=== PATIENT | female | born 1990 | race Caucasian/White ===

== ENCOUNTER 2019-06-23 14:30 | Outpatient (RCR) | payer BC, SELFPAY ==
[2019-06-23] MEDS: RHO(D) IMMUNE GLOBULIN 300 MCG SYRINGE IM (15:18)
== END 2019-09-19 23:59 | disposition home or self-care (01) ==
LOC: ANHLAB 14:30
PROVIDERS: Visit Provider Obstetrics & Gynecology
DX: O20.0 Threatened abortion (principal); Z29.13 Encounter for prophylactic Rho(D) immune globulin; O36.0990 Maternal care for other rhesus isoimmunization, unspecified trimester, not applicable or unspecified; Z3A.00 Weeks of gestation of pregnancy not specified
CPT/HCPCS: 36415; 84702; 86900; 86901; 90384; 96372; J2790

== ENCOUNTER 2020-02-02 08:41 | Emergency (ER) | payer BC, SELFPAY ==
--- NOTE | ~2020-02-02 | XR_ITS ---
XR chest 1V portable DATE: 02/02/2020 09:53 INDICATION: Chest pain, shortness of breath TECHNIQUE: Portable AP chest on 02/02/2020 at 0954 hours COMPARISON: None FINDINGS: Normal heart size. No hilar or mediastinal enlargement. No pulmonary infiltrate or consolid ation, pleural effusion or pulmonary vascular congestion or pneumothorax. IMPRESSION: No active cardiopulmonary disease Reviewed, dictated and finalized at location A.
--- NOTE | 2020-02-02 08:54 | ECG_ITS ---
Measurements Intervals [place] Rate: 113 P: 41 OK: 130 QRS: 16 QRSD: 93 T: 5 QT: 317 QTc: 436 Interpretive Statements SINUS TACHYCARDIA BORDERLINE T WAVE ABNORMALITY- INFERIOR LEADS BASELINE ARTIFACT- I, II, III, AVR, AVF ABNORMAL ECG Electronically Signed On 02-02-2020 9:44:49 CDT by Yeison Alfonso D.O.
--- NOTE | 2020-02-02 08:55 | ED.GENADULT ---
HPI - General Adult General Chief complaint: Chest Pain Stated complaint: SOB/CP - 16 weeks preg Time Seen by Provider: 02/02/20 08:49 Source: patient History of Present Illness HPI narrative: Patient is a 29 y/o female complaining of mid sternal chest pain since last night. She describes her pain as being punched. She rates her pain as 8/10. There is no alleviating or exacerbating factor. She also has some shortness. She has chronic cough, which she attributed to allergies. Of note, she is approximately 16 week . Related Data Home Medications Medication Instructions Recorded Confirmed docosahexaenoic acid 200 mg capsule mg PO 11/23/19 Allergies Allergy/AdvReac Type Severity Reaction Status Date / Time No Known Allergies Allergy Verified 02/02/20 09:08 Review of Systems Constitutional: Constitutional: Denies chills, Denies fever(s), Denies headache(s) and Denies weakness Eyes: Eyes: Denies blurry vision ENT: Denies headache(s) and Denies neck pain Cardiovascular: Cardiovascular: Reports chest pain and Reports dyspnea Respiratory: Respiratory: Denies cough and Denies dyspnea Gastrointestinal: Gastrointestinal: Denies abdominal pain, Denies diarrhea, Denies nausea and Denies vomiting Genitourinary: Genitourinary: Denies hematuria and Denies dysuria Musculoskeletal: Musculoskeletal: Denies back pain and Denies neck pain Neurologic: Denies headache(s) and Denies weakness PMFSH Past Medical History Medical History (Updated 02/02/20 @ 13:47 by Victorina Warner MD) Acid reflux Anemia affecting delivery delivered X2 04/2009 full term male 7lbs 13oz 05/2017 full term male 8lbs 2oz Migraines Miscarriage X2 09/2018 Tonsillectomy planned Surgical History Surgical History H/O dilation and curettage X2 Family History Family History Other Breast cancer Mother Cervical cancer Social History Social History Smoking status: Never smoker Alcohol intake: current Drinks per week: 1 Substance use: current Substance use type: marijuana Other substance usage details: 3 times weekly Exam Const: General: no acute distress and well developed Orientation/consciousness: oriented to person, oriented to place, oriented to time and patient oriented x3 HENMT: Head: normocephalic Ears: external ears normal General nose exam: Normal external nose present Eyes: General: appearance normal, both eyes and all related structures Conjunctivae: conjunctivae normal Neck: Neck: normal visual inspection and full ROM Chest: Chest palpation & inspection: normal inspection of the chest and no tenderness Resp: Effort & Inspection: normal respiratory effort Auscultation: clear to auscultation bilaterally Cardio: Rate: tachycardic Rhythm: regular rhythm GI: GI Palp: No abdominal tenderness and Yes Soft to palpation Skin: General skin exam: normal color and turgor normal Neuro: General: oriented to person, oriented to place, oriented to time and patient oriented x3 Cognition (Neuro): normal cognition Extrem: General: normal to inspection, full ROM and no pedal edema Psych: Appearance: grossly normal Mental Status: mental status grossly normal Affect: normal affect Course Consultations Consultation #1: Discussed with Dr. Lopez (for Dr. Stoddard), who recommends COVID test, holding antihypertensives for now and have patient follow up with Dr. Stoddard tomorrow. Date: 02/02/20 Time: 13:45 Vital Signs Vital signs: Vital Signs Temperature 36.3 C L 02/02/20 09:02 Pulse Rate 126 H 02/02/20 09:02 Respiratory Rate 22 H 02/02/20 09:02 Blood Pressure 172/90 H 02/02/20 09:02 Pulse Oximetry 100 02/02/20 09:02 Temperature 36.3 C L 02/02/20 09:02 Pulse Rate 95 02/02/20 12:25 Respiratory Rate 18
[2020-02-02 09:02] VITALS: BP 172/90; PULSE 126; RESP 22; TEMP 36.3; O2SAT 100
[2020-02-02 09:06] LABS: Basophils Absolute Auto 0.1 K/mm3 (0.0-0.1); Basophils Percent Auto 0.5 % (0.2-1.2); Eosinophils Absolute Auto 0.2 K/mm3 (0-0.3); Eosinophils Percent Auto 1.3 % (0-4.4); Hemoglobin 12.1 g/dL (12.0-15.0); Immature Granulocyte Absolute 0.05 K/mm3 (0.00-0.031); Immature Granulocyte Percent A 0.4 % (0-0.5); Lymphocytes Absolute Auto 2.15 K/mm3 (0.9-3.2); Lymphocytes Percent Auto 16.7 % (18.3-44.2); Mean Corpuscular Hemoglobin 23.8 pg (26-34); Mean Corpuscular Volume 76.8 fl (80-100); Mean Platelet Volume 10.5 fl (7.4-10.4); Monocytes Absolute Auto 0.7 K/mm3 (0.1-0.6); Monocytes Percent Auto 5.6 % (2.6-8.5); Neutrophils Absolute Auto 9.8 K/mm3 (1.3-6.7); Neutrophils Percent Auto 75.5 % (45.5-73.1); Platelet Count Result 406 k/mm3 (150-375); Red Blood Count 5.08 M/mm3 (4.2-5.4); Red Cell Distribution Width 16.6 % (11.5-14.5); White Blood Count 12.9 K/mm3 (4.5-10.0)
[2020-02-02 09:18] LABS: Alanine Aminotransferase 18 U/L (4-35); Albumin Level 3.7 g/dL (3.5-5.1); Alkaline Phosphatase 102 U/L (38-126); Anion Gap 9 mmol/L (8-16); Aspartate Amino Transferase 25 U/L (14-36); Bilirubin,Total 0.4 mg/dL (0.2-1.3); Blood Urea Nitrogen 6 mg/dL (7-17); Calcium 9.3 mg/dL (8.4-10.2); Carbon Dioxide 24 mmol/L (22-30); Chloride 103 mmol/L (98-107); Estimated CRCL calculation 265 ml/min; Estimated Glomerular Filt Rate > 60; Glucose 107 mg/dL (65-105); Potassium 4.1 mmol/L (3.4-5.0); Sodium 136 mmol/L (137-145)
[2020-02-02 09:19] LABS: D Dimer 0.37 ug/mL (<0.48)
[2020-02-02 09:29] LABS: NT Pro B Type Natriuretic Pept 75 PG/ML (5-100); Troponin I < 0.012 ng/mL (0.000-0.034)
[2020-02-02 10:07] VITALS: BP 152/89; PULSE 91; RESP 18; O2SAT 100
[2020-02-02 12:25] VITALS: BP 149/85; PULSE 95; RESP 18; O2SAT 100
--- NOTE | 2020-02-02 12:37 | PC.NURSE ---
Unsuccessful attempts to draw pts 3 hour. Lab was called. Lab is currently in pts room.
[2020-02-02 12:44] LABS: Add Urine Microscopic? YES; Appearance Urine Cloudy (Clear); Bacteria Urine Trace /hpf; Bilirubin Urine Negative (Negative); Blood Urine 1+ (Negative); Color Urine Yellow (Yellow); Glucose Urine UA Negative (Negative); Ketones Urine 1+ mg/dL (Negative); Leukocyte Esterase Ur Negative LEU/UL (Negative); Mucus Urine Heavy /lpf; Nitrate Urine Negative (Negative); Protein Urine 1+ mg/dL (Negative); Specific Grav Ur 1.027 (1.001-1.035); Squamous Epithelial Cell Urine Many /hpf (Few); Transitional Epi Cells Urine Rare /hpf (None Seen); Urobilinogen Urine Negative mg/dL (<2.0); WBC Urine 0-3 /hpf
[2020-02-02 13:09] LABS: Troponin I < 0.012 ng/mL (0.000-0.034)
[2020-02-03 12:45] LABS: SARS-CoV-2 RNA PCR Negative
== END 2020-02-02 14:11 | disposition home or self-care (01) ==
PROVIDERS: Emergency Provider Emergency Medicine
DX: K21.9 Gastro-esophageal reflux disease without esophagitis (principal); Z20.828 Contact with and (suspected) exposure to other viral communicable diseases; R00.0 Tachycardia, unspecified; R94.31 Abnormal electrocardiogram [ECG] [EKG]
CPT/HCPCS: 36415; 71045; 80053; 81001; 83880; 84443; 84484; 85025; 85380; 87635; 93005; 99284; C9803; U0003

== ENCOUNTER 2020-02-20 11:25 | Outpatient (CLI) | payer BC, SELFPAY ==
[2020-02-20] VITALS (11 sets, daily range): BP systolic 130–151; BP diastolic 64–82; PULSE 90–108; TEMP 36.4; O2SAT 99
--- NOTE | ~2020-02-20 | US_ITS ---
EXAMINATION: US OB limited EXAM DATE: 02/20/2020 13:19 INDICATION: Check placenta- post fall. 2nd trimester. TECHNIQUE: Pelvic obstetrical transabdominal sonogram was performed by a technologist. There are mu ltiple grayscale and Doppler images available for interpretation. There are no earlier studies of th is gestation for comparison. FINDINGS: There is a single fetus identified in transverse presentation with a heart rate of 142 beat s per minute. The placenta is located in the posterior previa position, appears to be extending about 1.3 cm over the internal cervical os. There is no sonographic evidence of retroplacental hemorrhage identified. There is subjectively expected amount of amniotic fluid. IMPRESSION: 1. Single fetus in transverse presentation with heart rate 142 beats per minute. 2. Placenta previa without retroplacental hemorrhage. Recommend follow-up ultrasound. Reviewed, dictated and finalized at location A. L NURSE CONSULTANT IMPRESSION: 1. Single fetus in transverse presentation with heart rate 142 beats per minut e. 2. Placenta previa without retroplacental hemorrhage. Recommend follow-up ultr asound.
--- NOTE | 2020-02-20 11:50 | PC.NURSE ---
This patient, Roxy Shanks, admitted to the OB room 112 at 1125 as clinical outpatient for hypertension in . Dr. Stoddard had called over orders before pt's arrival. Patient/family oriented to hospital policies and general routines including ID bracelet, bed and alarms, visiting hours, pain management, procedures, bathroom and other care routines, personal items, smoking policy, room service/diet, and visiting hours. Patient/Family are encouraged to report perceived risks to care and to ask questions if they do not understand what they are told or what they should do.
[2020-02-20 12:36] LABS: Basophils Absolute Auto 0.1 K/mm3 (0.0-0.1); Basophils Percent Auto 0.4 % (0.2-1.2); Eosinophils Absolute Auto 0.2 K/mm3 (0-0.3); Eosinophils Percent Auto 1.2 % (0-4.4); Hematocrit 35.6 % (37.0-47.0); Hemoglobin 10.9 g/dL (12.0-15.0); Immature Granulocyte Absolute 0.05 K/mm3 (0.00-0.031); Immature Granulocyte Percent A 0.4 % (0-0.5); Lymphocytes Absolute Auto 2.15 K/mm3 (0.9-3.2); Lymphocytes Percent Auto 16.4 % (18.3-44.2); Mean Corpuscular HGB Conc 30.6 g/dl (32-36); Mean Corpuscular Hemoglobin 23.6 pg (26-34); Mean Corpuscular Volume 77.1 fl (80-100); Mean Platelet Volume 10.4 fl (7.4-10.4); Monocytes Absolute Auto 0.7 K/mm3 (0.1-0.6); Monocytes Percent Auto 5.1 % (2.6-8.5); Neutrophils Percent Auto 76.5 % (45.5-73.1); Platelet Count Result 366 k/mm3 (150-375); Red Blood Count 4.62 M/mm3 (4.2-5.4); Red Cell Distribution Width 16.8 % (11.5-14.5); White Blood Count 13.1 K/mm3 (4.5-10.0)
[2020-02-20 12:42] LABS: Creatinine Urine 232.9 mg/dL; Total Protein Urine Random 6 mg/dL
[2020-02-20 12:47] LABS: Alanine Aminotransferase 13 U/L (4-35); Albumin Level 3.5 g/dL (3.5-5.1); Alkaline Phosphatase 114 U/L (38-126); Anion Gap 7 mmol/L (8-16); Aspartate Amino Transferase 15 U/L (14-36); Bilirubin,Total 0.3 mg/dL (0.2-1.3); Blood Urea Nitrogen 5 mg/dL (7-17); Calcium 9.1 mg/dL (8.4-10.2); Carbon Dioxide 24 mmol/L (22-30); Chloride 103 mmol/L (98-107); Estimated Glomerular Filt Rate > 60; Glucose 88 mg/dL (65-105); Sodium 134 mmol/L (137-145); Uric Acid 4.3 mg/dL (2.5-7.5)
[2020-02-20 12:48] LABS: Add Urine Microscopic? YES; Amorphous Sediment Urine Few; Appearance Urine Cloudy (Clear); Bacteria Urine 2+ /hpf; Bilirubin Urine Negative (Negative); Blood Urine Negative (Negative); Color Urine Yellow (Yellow); Glucose Urine UA Negative (Negative); Ketones Urine Trace mg/dL (Negative); Leukocyte Esterase Ur Negative LEU/UL (Negative); Mucus Urine Moderate /lpf; Nitrate Urine Negative (Negative); Protein Urine 1+ mg/dL (Negative); RBC Urine 0-2 /hpf (0-2); Specific Grav Ur 1.021 (1.001-1.035); Squamous Epithelial Cell Urine Many /hpf (Few); Urobilinogen Urine Negative mg/dL (<2.0)
--- NOTE | 2020-02-20 12:48 | PC.NURSE ---
Dr. Stoddard in OR and circulating RN passed on the information of pt's BP's. Informed pt fell going up her steps yesterday and hit her abdomen. Blood type is A Neg. Pt denies leakage of fluid and vaginal bleeding. FHT's 150. Additional orders for Rhogam and U/S to check placenta obtained.
--- NOTE | 2020-02-20 13:08 | PC.NURSE ---
To U/S per wheelchair.
--- NOTE | 2020-02-20 13:53 | PC.NURSE ---
Dr. Stoddard informed of lab results, updated on BP's, and informed of U/S report including placenta previa. Informed pt's headache has increased to a 7 out of 10. Pt last took Tylenol 650 mg at 2300 last night. Orders received for Tylenol. Pt can be discharge after she receives the Rhogam. Pt to be placed on pelvic rest and to keep office and U/S appointment on 03/05/20.
[2020-02-20] MEDS: ACETAMINOPHEN 500 MG TABLET 1000 MG PO (14:07)
[2020-02-20] MEDS: RHO(D) IMMUNE GLOBULIN 300 MCG SYRINGE IM (14:45)
== END 2020-02-20 14:58 | disposition home or self-care (01) ==
LOC: ANHOBOP 11:34 → ANHOBPP 11:37
PROVIDERS: Visit Provider Obstetrics & Gynecology
DX: O13.9 Gestational [pregnancy-induced] hypertension without significant proteinuria, unspecified trimester (principal); Z3A.00 Weeks of gestation of pregnancy not specified
CPT/HCPCS: 36415; 76815; 80053; 81001; 82570; 84156; 84550; 85025; 85461; 90384; 96372; 99199; A9270; J2790

== ENCOUNTER 2020-03-05 08:47 | Outpatient (CLI) | payer BC, SELFPAY ==
--- NOTE | ~2020-03-05 | US_ITS ---
EXAMINATION: US OB /maternal detail DATE: 03/05/2020 09:37 INDICATION: survey TECHNIQUE: Multiple obstetric sonographic images performed. FINDINGS: Comparison to 02/20/2020. There is a single living fetus in vertex presentation. The placenta is anterior without placenta pre via. Amniotic fluid volume is normal. YSABEL measures 11.2 cm. cardiac activity and movement is noted with a heart rate of 150 beats per minute. The following anatomy was identified as normal: 4 chamber heart (ventricular outflow tracts not visualized due to body habitus) 3 vessel cord cord insertion kidneys urinary bladder stomach spine diaphragm ventricles The cerebellum, cisterna magna and nuchal fold are not well visualized. The following biometric data were obtained: BPD: 48mm corresponds to gestational age 20 weeks 3 days. Head circumference: 180 mm corresponds to gestational age 20 weeks 3 days. Abdominal circumference: 170 mm corresponds to gestational age 22 weeks 0 days. Femur length: 32 mm corresponds to gestational age 20 weeks 0 days. Head circumference to abdominal circumference ratio: 1.06 (normal range for expected gestational age is 1.06-1.25). Estimated weight: 392 grams +/- 59 grams using Hadlock method. IMPRESSION: 1: Single living intrauterine with an estimated gestational age of 20weeks 5days by current ultrasound measurements, with an EDC of 07/18/2020 in vertex presentation. 2. Limited survey for evaluation of intracranial structures, nuchal fold and outflow tracts. No abnormalities identified. Recommend attention to areas of limited visualization on subsequent examination. Reviewed, dictated and finalized at location B. STOCK FARM MANAGER IMPRESSION: 1: Single living intrauterine with an estimated gestational age of 20 weeks 5days by current ultrasound measurements, with an EDC of 07/18/2020 in cal mary presentation. 2. Limited survey for evaluation of intracranial structures, nuchal fold and outflow tracts. No abnormalities identified. Recommend attention to a reas of limited visualization on subsequent examination.
== END 2020-03-05 08:48 | disposition home or self-care (01) ==
LOC: ANHIMG 08:49
PROVIDERS: Visit Provider Obstetrics & Gynecology
DX: Z34.92 Encounter for supervision of normal pregnancy, unspecified, second trimester (principal); Z3A.20 20 weeks gestation of pregnancy
CPT/HCPCS: 76805

== ENCOUNTER 2020-03-15 11:20 | Outpatient (NON) | payer BC, SELFPAY ==
[2020-03-16 00:26] LABS: SARS-CoV-2 RNA PCR Positive
== END 2020-03-15 11:21 ==
LOC: ANHCOVIDDT 11:23
PROVIDERS: Visit Provider Obstetrics & Gynecology
DX: U07.1 COVID-19 (principal)
CPT/HCPCS: 87635; C9803; U0003

== ENCOUNTER 2020-04-02 09:51 | Outpatient (CLI) | payer BC, SELFPAY ==
--- NOTE | ~2020-04-02 | US_ITS ---
EXAMINATION: US OB follow up DATE: 04/02/2020 10:30 INDICATION: Incomplete second trimester anatomic survey TECHNIQUE: Real-time ultrasound of the pelvis was performed. The interpreting radiologist was not pre sent for the study. COMPARISON: 03/05/2020 FINDINGS: There is a single living fetus in breech presentation. The placenta is fundal/anterior. Fet al cardiac activity and movement are noted. heart rate is 159 beats per minute (bpm). The amniotic fluid index is subjectively normal. The cerebral ventricles, cerebellum, cisterna magna, nu chal fold, and four-chamber heart appear normal however evaluation is again limited by body habitus. The following biometric data were obtained: Biparietal diameter (BPD): 6.5 cm; head circumference (HC): 24.3 cm; abdominal circumference (AC): 21 .8 cm; femur length (FL): 4.3 cm. The femoral length to abdominal circumference ratio, femoral length to biparietal diameter ratio, and femoral length to head circumference ratio are greater than two standard deviations below the mean. Estimated weight is 824 g +/- 123 g, which correlates with the 95th percentile when 07/22/2020 i s used as estimated date of delivery. As single measurements, these parameters are each equal to the following estimated gestational ages w ith ranges of +/- 2 standard deviations: BPD: 26 weeks 2 days ( 24 weeks 1 days - 28 weeks 3 days). HC: 26 weeks 3 days ( 24 weeks 32 days - 28 weeks 4 days). AC: 26 weeks 2 days ( 24 weeks 1 days - 28 weeks 3 days). FL: 4 weeks 1 days ( 2 weeks 1 days - 6 weeks 2 days). estimated gestational age based solely on measurements from this exam is 25 weeks 6 days +/- 1 weeks 6 days. IMPRESSION: 1. Single living fetus in breech presentation. 2. Estimated weight is 824 g +/- 123 g, which correlates with the 95th percentile when is used as estimated date of delivery. Three. Discordant biometrics as described above. 4. Grossly normal intracranial and heart anatomy with suboptimal evaluation. Reviewed, dictated and finalized at location A. R ORAL SURGEON IMPRESSION: 1. Single living fetus in breech presentation. 2. Estimated weight is 824 g +/- 123 g, which correlates with the 95th pe rcentile when 07/22/2020 is used as estimated date of delivery. Three. Discordan t biometrics as described above. 4. Grossly normal intracranial and heart anatomy with suboptimal evaluation.
== END 2020-04-02 09:52 | disposition home or self-care (01) ==
PROVIDERS: Visit Provider Obstetrics & Gynecology
DX: Z34.92 Encounter for supervision of normal pregnancy, unspecified, second trimester (principal); Z3A.25 25 weeks gestation of pregnancy
CPT/HCPCS: 76816

== ENCOUNTER 2020-04-28 13:11 | Emergency (ER) | payer BC, MEDICAID, SELFPAY ==
--- NOTE | ~2020-04-28 | XR_ITS ---
EXAMINATION: XR chest 1V portable EXAM DATE: 04/28/2020 14:11 INDICATION: Cough, shortness of breath, recent COVID diagnosis. . TECHNIQUE: Portable AP frontal chest x-ray was obtained. Comparison is made to prior examination from 02/02/2020. FINDINGS: The lungs are clear. There are no pleural effusions. Cardiac silhouette is prominent but magnified on this AP technique. There is no pneumothorax suspected. The bones and soft tissues are unremarkable. IMPRESSION: Normal chest x-ray exam. Reviewed, dictated and finalized at location A. SHOOTER IMPRESSION: Normal chest x-ray exam.
[2020-04-28 13:19] VITALS: BP 148/103; PULSE 116; RESP 20; TEMP 36.6; O2SAT 100
--- NOTE | 2020-04-28 14:00 | ED.URI ---
HPI - URI/Sore Throat General Chief Complaint: Upper Respiratory Infection Stated Complaint: cough, 28 weeks preg Time Seen by Provider: 04/28/20 13:51 Source: patient Mode of arrival: ambulatory Limitations: no limitations History of Present Illness HPI Narrative: Patient is 29 years old white female complaining of dry cough for the last 2 weeks. Was tested positive for Covid on March 13. Patient is 28 weeks denying any abdominal pain, abdominal cramps, vaginal bleeding or urinary symptoms. Patient also denies any fever, chills, nausea, vomiting, chest pain, shortness of breath or back pain. Related Data Home Medications Medication Instructions Recorded Confirmed PNV no.[id number] 2 tablet PO DAILY 02/20/20 02/20/20 [ Gummies] acetaminophen 650 mg PO Q4H PRN 02/20/20 02/20/20 Allergies Allergy/AdvReac Type Severity Reaction Status Date / Time No Known Allergies Allergy Verified 04/02/20 09:20 Review of Systems Review of Systems: Narrative: CONSTITUTIONAL: Denies fever, chills, or sweats. EYES: Denies visual changes, redness, or discharge. ENT: Denies rhinorrhea, congestion, sore throat, or otalgia. CARDIOVASCULAR: Denies chest pain, palpitations, or edema. RESPIRATORY: Denies cough or dyspnea. GASTROINTESTINAL: Denies abdominal pain, nausea, vomiting, or diarrhea. GENITOURINARY: Denies dysuria or hematuria. SKIN: Denies rash or itching. MUSCULOSKELETAL: Denies back pain, joint pain, or myalgia. NEUROLOGIC: Denies headache, numbness, or weakness. PSYCHIATRIC: Denies anxiety or depression. PENDING SALE TO [facility] Past Medical History Medical History (Updated 04/28/20 @ 14:16 by Robert Azar MD) Acid reflux Anemia affecting delivery delivered X2 04/2009 full term male 7lbs 13oz 05/2017 full term male 8lbs 2oz Migraines Miscarriage X2 09/2018 Tonsillectomy planned Surgical History Surgical History H/O dilation and curettage X2 Family History Family History Other Breast cancer Mother Cervical cancer Social History Social History Smoking status: Never smoker Alcohol intake: current Drinks per week: 1 Substance use: current Substance use type: marijuana Other substance usage details: 3 times weekly Gender identity (if verbalized by the patient): Female Exam Narrative: Exam Narrative: General appearance: Well-developed, well-nourished, morbidly obese, does not look in pain or distress, at the bedside Skin: Normal color Head: Normocephalic, nontraumatic Eyes: Clear conjunctiva ENT: Oropharynx normal, ears normal, nose normal Neck: Supple, nontender Chest and respiratory: Airway patent, no respiratory distress, no accessory muscle use Heart: Regular rate/rhythm Abdomen: Soft, nontender, no organomegaly, quiet bowel sounds Vascular: Normal peripheral pulses, normal capillary refill. Musculoskeletal: Normal range of motion, nontender back Neurologic: Alert and oriented ?3, SENIOR OPERATOR is normal as tested, no gross motor deficit Course Course Emergency Course: , stable Vital Signs Vital signs: Vital Signs Temperature 36.6 C 04/28/20 13:19 Pulse Rate 116 H 04/28/20 13:19 Respiratory Rate 20 04/28/20 13:19 Blood Pressure 148/103 H 04/28/20 13:19 Pulse Oximetry 100 04/28/20 13:19 Temperature 36.6 C 04/28/20 13:19 Pulse Rate 116 H 04/28/20 13:19 Respiratory Rate 20 04/28/20 13:19 Blood Pressure 148/103 H 04/28/20 13:19 Pulse Oximetry 100 04/28/20 13:19 [facility] -
[2020-04-28 14:12] LABS: Basophils Absolute Auto 0.1 K/mm3 (0.0-0.1); Basophils Percent Auto 0.5 % (0.2-1.2); Eosinophils Absolute Auto 0.2 K/mm3 (0-0.3); Eosinophils Percent Auto 1.7 % (0-4.4); Hematocrit 35.1 % (37.0-47.0); Hemoglobin 10.4 g/dL (12.0-15.0); Immature Granulocyte Percent A 0.8 % (0-0.5); Lymphocytes Absolute Auto 2.04 K/mm3 (0.9-3.2); Lymphocytes Percent Auto 15.7 % (18.3-44.2); Mean Corpuscular HGB Conc 29.6 g/dl (32-36); Mean Corpuscular Hemoglobin 22.6 pg (26-34); Mean Corpuscular Volume 76.3 fl (80-100); Mean Platelet Volume 10.1 fl (7.4-10.4); Monocytes Absolute Auto 0.9 K/mm3 (0.1-0.6); Monocytes Percent Auto 6.6 % (2.6-8.5); Neutrophils Absolute Auto 9.7 K/mm3 (1.3-6.7); Neutrophils Percent Auto 74.7 % (45.5-73.1); Platelet Count Result 452 k/mm3 (150-375); Red Cell Distribution Width 17.7 % (11.5-14.5)
[2020-04-28 14:13] LABS: Add Urine Microscopic? YES; Appearance Urine Cloudy (Clear); Bilirubin Urine Negative (Negative); Blood Urine Negative (Negative); Color Urine Yellow (Yellow); Glucose Urine UA Negative (Negative); Ketones Urine Negative (Negative); Leukocyte Esterase Ur Negative LEU/UL (Negative); Mucus Urine Few /lpf; Nitrate Urine Negative (Negative); Protein Urine 1+ mg/dL (Negative); RBC Urine 0-2 /hpf (0-2); Specific Grav Ur 1.023 (1.001-1.035); Squamous Epithelial Cell Urine Many /hpf (Few); Urobilinogen Urine Negative mg/dL (<2.0); WBC Urine 0-3 /hpf
[2020-04-28 14:24] LABS: Anion Gap 5 mmol/L (8-16); Blood Urea Nitrogen 4 mg/dL (7-17); Calcium 9.1 mg/dL (8.4-10.2); Carbon Dioxide 25 mmol/L (22-30); Chloride 105 mmol/L (98-107); Estimated CRCL calculation 265 ml/min; Estimated Glomerular Filt Rate > 60; Glucose 75 mg/dL (65-105); Potassium 3.9 mmol/L (3.4-5.0); Sodium 135 mmol/L (137-145)
[2020-04-28 15:29] VITALS: BP 158/92; PULSE 84; RESP 14; O2SAT 99
== END 2020-04-28 15:31 | disposition home or self-care (01) ==
PROVIDERS: Emergency Provider Emergency Medicine
DX: J20.8 Acute bronchitis due to other specified organisms (principal); K21.9 Gastro-esophageal reflux disease without esophagitis
CPT/HCPCS: 36415; 71045; 80048; 81001; 85025; 99283

== ENCOUNTER 2020-05-01 14:11 | Outpatient (RCR) | payer BC, MEDICAID, SELFPAY ==
[2020-04-30 11:46] LABS: Hematocrit 29.7 % (37.0-47.0); Hemoglobin 8.7 g/dL (12.0-15.0); Mean Corpuscular HGB Conc 29.3 g/dl (32-36); Mean Corpuscular Hemoglobin 22.1 pg (26-34); Mean Corpuscular Volume 75.4 fl (80-100); Mean Platelet Volume 10.3 fl (7.4-10.4); Platelet Count Result 437 k/mm3 (150-375); Red Blood Count 3.94 M/mm3 (4.2-5.4); Red Cell Distribution Width 17.7 % (11.5-14.5); White Blood Count 12.6 K/mm3 (4.5-10.0)
[2020-04-30 11:58] LABS: Glucose 1 Hour PP 50gm Dose 111 mg/dL
--- NOTE | ~2020-05-01 | US_ITS ---
EXAMINATION: US OB follow up DATE: 04/30/2020 10:16 INDICATION: Estimated size greater than expected for estimated gestational age. Assess gr owth. TECHNIQUE: Real-time ultrasound of the pelvis was performed. The interpreting radiologist was not pre sent for the study. COMPARISON: 04/02/2020 FINDINGS: There is a single living fetus in breech presentation. The placenta is anterior. heart rate is 145 beats per minute (bpm). The amniotic fluid index is 15.9 cm, which is normal (5th%-95%: 9.4-22. 8 cm at 28 weeks estimated gestational age). The following biometric data were obtained: BPD: 7.7 cm -> 30 weeks 5 days Head circumference: 27.7 cm -> 30 weeks 2 days Abdominal circumference: 26.4 cm -> 30 weeks 4 days Femur length: 5.8 cm -> 30 weeks 2 days These measurements are concordant. Head circumference to abdominal circumference ratio: 1.05 (normal range 0.97-1.18). Estimated weight: 1573 g (+/-) 236 g. or 3 lbs. 7 oz. (+/-) 8 oz. IMPRESSION: 1. Single living fetus in breech presentation with heart rate of 145 bpm. 2. Normal amniotic fluid index of 15.9 cm. 3. Estimated weight is >97th percentile by Hadlock criteria when 07/22/2020 is used as the estim ated date of delivery (CB). Please correlate with clinical information or earlier ultrasounds for mo st accurate CB. Reviewed, dictated and finalized at location B. TRICAL UNIT REBUILDER IMPRESSION: 1. Single living fetus in breech presentation with heart rate of 145 bpm. 2. Normal amniotic fluid index of 15.9 cm. 3. Estimated weight is >97th percentile by Hadlock criteria when 1 is used as the estimated date of delivery (CB). Please correlate with clinic al information or earlier ultrasounds for most accurate CB.
[2020-05-01] MEDS: RHO(D) IMMUNE GLOBULIN 300 MCG SYRINGE IM (09:25)
== END 2020-05-01 14:12 | disposition home or self-care (01) ==
LOC: ANHIMG 14:11
PROVIDERS: Visit Provider Obstetrics & Gynecology
DX: Z29.13 Encounter for prophylactic Rho(D) immune globulin (principal); O36.0930 Maternal care for other rhesus isoimmunization, third trimester, not applicable or unspecified; Z3A.30 30 weeks gestation of pregnancy
CPT/HCPCS: 36415; 76816; 82947; 85027; 85461; 90384; 96372; J2790

== ENCOUNTER 2020-05-09 16:05 | Outpatient (CLI) | payer MEDICAID, SELFPAY ==
[2020-05-09] VITALS (16 sets, daily range): BP systolic 115–152; BP diastolic 52–89; PULSE 88–112; RESP 16; TEMP 37.2
[2020-05-09 16:43] LABS: Add Urine Microscopic? NO; Appearance Urine Clear (Clear); Basophils Percent Auto 0.3 % (0.2-1.2); Bilirubin Urine Negative (Negative); Blood Urine Negative (Negative); Color Urine Yellow (Yellow); Eosinophils Absolute Auto 0.3 K/mm3 (0-0.3); Eosinophils Percent Auto 1.8 % (0-4.4); Glucose Urine UA Negative (Negative); Hematocrit 34.9 % (37.0-47.0); Immature Granulocyte Percent A 0.7 % (0-0.5); Immature Platelet Fraction Pct 3.7 % (0.9-11.2); Ketones Urine Negative (Negative); Leukocyte Esterase Ur Negative LEU/UL (NEGATIVE); Lymphocytes Absolute Auto 1.99 K/mm3 (0.9-3.2); Lymphocytes Percent Auto 13.9 % (18.3-44.2); Mean Corpuscular HGB Conc 28.7 g/dl (32-36); Mean Corpuscular Hemoglobin 21.9 pg (26-34); Mean Corpuscular Volume 76.5 fl (80-100); Mean Platelet Volume 9.9 fl (7.4-10.4); Monocytes Absolute Auto 0.9 K/mm3 (0.1-0.6); Monocytes Percent Auto 5.9 % (2.6-8.5); Neutrophils Absolute Auto 11.1 K/mm3 (1.3-6.7); Neutrophils Percent Auto 77.4 % (45.5-73.1); Nitrate Urine Negative (Negative); Nucleated Red Blood Cells Perc 0.1 % (0.0-0.2); Platelet Count Result 448 k/mm3 (150-375); Protein Urine Negative (Negative); Red Blood Count 4.56 M/mm3 (4.2-5.4); Specific Grav Ur 1.017 (1.001-1.035); Urobilinogen Urine Negative mg/dL (<2.0); White Blood Count 14.3 K/mm3 (4.5-10.0)
[2020-05-09 16:53] LABS: Alanine Aminotransferase 14 U/L (4-35); Albumin Level 3.5 g/dL (3.5-5.1); Alkaline Phosphatase 127 U/L (38-126); Anion Gap 7 mmol/L (8-16); Aspartate Amino Transferase 17 U/L (14-36); Bilirubin,Total 0.3 mg/dL (0.2-1.3); Blood Urea Nitrogen 6 mg/dL (7-17); Calcium 9.4 mg/dL (8.4-10.2); Carbon Dioxide 23 mmol/L (22-30); Chloride 105 mmol/L (98-107); Estimated Glomerular Filt Rate > 60; Glucose 94 mg/dL (65-105); Sodium 135 mmol/L (137-145); Uric Acid 3.8 mg/dL (2.5-7.5)
[2020-05-09 17:08] LABS: Hypochromasia 1+ (NORMAL); Platelet Estimate Increased (Adequate)
--- NOTE | 2020-05-09 17:15 | PC.NURSE ---
171- Spoke with Dr. Kay, reveiwed labs, BP's NST and headache pain 01/13. Orders to give 1 fioricet now and continue to monitor.
[2020-05-09 17:43] LABS: Creatinine Urine 113.1 mg/dL; Total Protein Urine Random 9 mg/dL; Ur Ttl Prot Creatinine Ratio 0.08 mg/mg (0-0.20)
--- NOTE | 2020-05-09 18:39 | PC.NURSE ---
Rahul UP called at 1835. updated on pt current BP's and Headache rated 6/10. stated she wanted to order phenergan suppository for pt. then stated she would call me back.
--- NOTE | 2020-05-09 18:46 | PC.NURSE ---
1843 - called back. Orders for PO reglan and call back in an hour.
[2020-05-09] MEDS: METOCLOPRAMIDE HCL 10 MG TABLET PO (18:49)
--- NOTE | 2020-05-09 20:01 | PC.NURSE ---
174 - called to update on pt recent BP's and pt rating headache 07/14 now. Told her pt stated she feels off . stated the medication given will cause that for pt. Orders to DC pt with 24 hour urine. stated she will put in prescription for medication to go home with. stated to give pt sheet for pre-E and follow up with Richi UP.
--- NOTE | 2020-05-09 20:23 | PC.NURSE ---
2020 - Pt given instructions on pain control, 24 hr urine, and pre-e. Pt to follow up with Richi UP. Pt given instructions on signs/symptoms and when to come back to hospital.
== END 2020-05-09 20:21 | disposition home or self-care (01) ==
LOC: ANHOBOP 16:17 → ANHOBPP 16:18
PROVIDERS: Visit Provider Obstetrics & Gynecology
DX: O13.9 Gestational [pregnancy-induced] hypertension without significant proteinuria, unspecified trimester (principal); Z3A.00 Weeks of gestation of pregnancy not specified
CPT/HCPCS: 36415; 59025; 80053; 81003; 82570; 84156; 84550; 85025; 85055; 87086; 87088; 99199; A9270

== ENCOUNTER 2020-05-11 09:08 | Outpatient (NON) | payer MEDICAID, SELFPAY ==
[2020-05-11 09:20] VITALS: BMI 61.9
[2020-05-11 09:45] LABS: Collection Time Urine 24 HOURS
[2020-05-11 09:52] LABS: Creatinine Urine 147.9 mg/dL; Patient Weight 372 Lbs; Total Protein Urine Random 7 mg/dL
[2020-05-11 09:58] LABS: Creatinine Clearance Urine 184.6 ml/min (75-125); Total Protein Urine 24 Hr 56 MG/DAY (28-141); Total Volume 24 Hour Urine 800 ml
== END 2020-05-11 09:09 ==
PROVIDERS: Visit Provider Obstetrics & Gynecology
DX: R51.9 Headache, unspecified (principal); M79.89 Other specified soft tissue disorders
CPT/HCPCS: 81050; 82575; 84156

== ENCOUNTER 2020-05-28 09:46 | Observation (INO) | payer MEDICAID, SELFPAY ==
[2020-05-28] VITALS (9 sets, daily range): BP systolic 134–164; BP diastolic 60–97; PULSE 92–109; BMI 61.9
--- NOTE | 2020-05-28 10:02 | OBADM ---
This patient, Roxy Shanks, admitted to the OB room OB Post 117 for observation. Patient/family oriented to hospital policies and general routines including ID bracelet, bed and alarms, visiting hours, pain management, procedures, bathroom and other care routines, personal items, smoking policy, room service/diet, and visiting hours. Patient/Family are encouraged to report perceived risks to care and to ask questions if they do not understand what they are told or what they should do.
[2020-05-28 10:31] LABS: Basophils Absolute Auto 0.1 K/mm3 (0.0-0.1); Basophils Percent Auto 0.4 % (0.2-1.2); Eosinophils Absolute Auto 0.1 K/mm3 (0-0.3); Hematocrit 30.9 % (37.0-47.0); Hemoglobin 9.1 g/dL (12.0-15.0); Immature Granulocyte Absolute 0.11 K/mm3 (0.00-0.031); Immature Granulocyte Percent A 0.8 % (0-0.5); Lymphocytes Absolute Auto 1.89 K/mm3 (0.9-3.2); Lymphocytes Percent Auto 14.6 % (18.3-44.2); Mean Corpuscular HGB Conc 29.4 g/dl (32-36); Mean Corpuscular Hemoglobin 21.4 pg (26-34); Mean Corpuscular Volume 72.5 fl (80-100); Mean Platelet Volume 9.9 fl (7.4-10.4); Monocytes Percent Auto 7.3 % (2.6-8.5); Neutrophils Absolute Auto 9.8 K/mm3 (1.3-6.7); Neutrophils Percent Auto 75.9 % (45.5-73.1); Nucleated Red Blood Cells Perc 0.2 % (0.0-0.2); Platelet Count Result 410 k/mm3 (150-375); Red Blood Count 4.26 M/mm3 (4.2-5.4); Red Cell Distribution Width 17.7 % (11.5-14.5)
[2020-05-28 10:45] LABS: Alanine Aminotransferase 14 U/L (4-35); Albumin Level 3.2 g/dL (3.5-5.1); Alkaline Phosphatase 138 U/L (38-126); Anion Gap 6 mmol/L (8-16); Aspartate Amino Transferase 14 U/L (14-36); Bilirubin,Total 0.3 mg/dL (0.2-1.3); Blood Urea Nitrogen 5 mg/dL (7-17); Calcium 8.9 mg/dL (8.4-10.2); Carbon Dioxide 23 mmol/L (22-30); Chloride 106 mmol/L (98-107); Estimated CRCL calculation 345 ml/min; Estimated Glomerular Filt Rate > 60; Glucose 98 mg/dL (65-105); Potassium 3.8 mmol/L (3.4-5.0); Sodium 135 mmol/L (137-145); Uric Acid 3.9 mg/dL (2.5-7.5)
[2020-05-28 10:50] LABS: Hypochromasia 1+ (NORMAL); Platelet Estimate Adequate (Adequate); Stomatocytes 1+ (NORMAL)
[2020-05-28 11:25] LABS: Add Urine Microscopic? YES; Appearance Urine Cloudy (Clear); Bacteria Urine 3+ /hpf; Bilirubin Urine Negative (Negative); Blood Urine Negative (Negative); Color Urine Yellow (Yellow); Glucose Urine UA Negative (Negative); Ketones Urine Trace mg/dL (Negative); Leukocyte Esterase Ur Negative LEU/UL (NEGATIVE); Mucus Urine Few /lpf; Nitrate Urine Negative (Negative); Protein Urine 1+ mg/dL (Negative); RBC Urine 0-2 /hpf (0-2); Specific Grav Ur 1.018 (1.001-1.035); Squamous Epithelial Cell Urine Many /hpf (Few); Transitional Epi Cells Urine Rare /hpf (None Seen); Urobilinogen Urine Negative mg/dL (<2.0); WBC Urine 0-3 /hpf (0-3)
[2020-05-28 11:27] LABS: Creatinine Urine 130.6 mg/dL; Total Protein Urine Random 8 mg/dL; Ur Ttl Prot Creatinine Ratio 0.06 mg/mg (0-0.20)
--- NOTE | 2020-05-28 11:45 | PC.NURSE ---
1143- Spoke with Dr. Stoddard, BPS and labs reveiwed. Patient still reports intermittent cramping. Orders to give 10 mg Procardia once now. Will reevaluate in an hour.
--- NOTE | 2020-05-28 11:52 | PC.NURSE ---
1150- Spoke with Whitney Corral CNM, reveiwed reactive tracing. Orders to send for BPP and YSABEL. Call with results.
[2020-05-28] MEDS: NIFEdipine 10 MG CAPSULE PO (12:02)
--- NOTE | 2020-05-28 13:00 | PC.NURSE ---
1300- Spoke with Dr. Stoddard, patient reports decreased cramping. BP's reviewed. Orders to discharge to home with Procardia 10 mg q4 hrs PRN for cramping.
--- NOTE | 2020-06-12 08:50 | PM.OBTRLD ---
OB - Triage/Final Diagnosis Visit Information Comments/Additional reasons for admission: I have assessed the risk for this patient, Roxy Shanks, and determined that she would benefit from observation care. Evaluation Laboratory results: Laboratory Tests 05/28/20 05/28/20 05/28/20 10:20 10:20 10:20 WBC 13.0 H RBC 4.26 Hgb 9.1 L Hct 30.9 L MCV 72.5 L MCH 21.4 L MCHC 29.4 L RDW 17.7 H Plt Count 410 H MPV 9.9 Immature Gran % (Auto) 0.8 H Neut % (Auto) 75.9 H Lymph % (Auto) 14.6 L Benton % (Auto) 7.3 Eos % (Auto) 1.0 Baso % (Auto) 0.4 Lymph # (Auto) 1.89 Benton # (Auto) 1.0 H Eos # (Auto) 0.1 Baso # (Auto) 0.1 Abs Immat Gran (auto) 0.11 H Absolute Neuts (auto) 9.8 H Absolute Nucleated RBC 0.0 Nucleated RBC % 0.2 Platelet Estimate Adequate Hypochromasia 1+ Stomatocytes 1+ Sodium Potassium Chloride Carbon Dioxide Anion Gap BUN Creatinine Estim Creat Clear Calc Estimated GFR Glucose Uric Acid Calcium Total Bilirubin AST ALT Alkaline Phosphatase Total Protein Albumin Urine Color Yellow Urine Appearance Cloudy H Urine pH 6.0 Ur Specific Fulton 1.018 Urine Protein 1+ H Urine Glucose (UA) Negative Urine Ketones Trace Ur Blood (Man) Negative Urine Nitrate Negative Urine Bilirubin Negative Urine Urobilinogen Negative Ur Leukocyte Esterase Negative Urine RBC 0-2 Urine WBC 0-3 Ur Squamous Epith Cells Many H Ur Transition Epith Cell Rare Urine Bacteria 3+ H Urine Mucus Few H U Random Total Protein 8 Urine Creatinine 130.6 Protein/Creat Ratio 2 0.06 05/28/20 10:20 WBC RBC Hgb Hct MCV MCH MCHC RDW Plt Count MPV Immature Gran % (Auto) Neut % (Auto) Lymph % (Auto) Benton % (Auto) Eos % (Auto) Baso % (Auto) Lymph # (Auto) Benton # (Auto) Eos # (Auto) Baso # (Auto) Abs Immat Gran (auto) Absolute Neuts (auto) Absolute Nucleated RBC Nucleated RBC % Platelet Estimate Hypochromasia Stomatocytes Sodium 135 L Potassium 3.8 Chloride 106 Carbon Dioxide 23 Anion Gap 6 L BUN 5 L Creatinine 0.30 L Estim Creat Clear Calc 345 Estimated GFR > 60 Glucose 98 Uric Acid 3.9 Calcium 8.9 Total Bilirubin 0.3 AST 14 ALT 14 Alkaline Phosphatase 138 H Total Protein 6.0 L Albumin 3.2 L Urine Color Urine Appearance Urine pH Ur Specific Fulton Urine Protein Urine Glucose (UA) Urine Ketones Ur Blood (Man) Urine Nitrate Urine Bilirubin Urine Urobilinogen Ur Leukocyte Esterase Urine RBC Urine WBC Ur Squamous Epith Cells Ur Transition Epith Cell Urine Bacteria Urine Mucus U Random Total Protein Urine Creatinine Protein/Creat Ratio 2 Final Diagnosis (1) Gestational hypertension: Code(s): O13.9 - Gestational [-induced] hypertension without significant proteinuria, unspecified trimester Status: Acute
== END 2020-05-28 13:15 | disposition home or self-care (01) ==
PROVIDERS: Admitting Provider Obstetrics & Gynecology; Visit Provider Obstetrics & Gynecology
DX: O13.3 Gestational [pregnancy-induced] hypertension without significant proteinuria, third trimester (principal); Z3A.32 32 weeks gestation of pregnancy
CPT/HCPCS: 36415; 80053; 81001; 82570; 84156; 84550; 85025; 87086; 87088; A9270; G0378; G0379

== ENCOUNTER 2020-06-01 10:12 | Outpatient (CLI) | payer BC, MEDICAID, SELFPAY ==
--- NOTE | ~2020-06-01 | US_ITS ---
EXAMINATION: US OB follow up EXAM DATE: 06/01/2020 10:42 INDICATION: Chronic hypertension. Check growth. 3rd trimester. TECHNIQUE: Pelvic obstetrical transabdominal sonogram was performed by a technologist. There are mu ltiple grayscale and Doppler images available for interpretation. Comparison is made to prior examina tion from 04/30/2020. FINDINGS: There is a single fetus identified in vertex presentation with a heart rate of 138 beats pe r minute. The placenta is located in the anterior position. There is no sonographic evidence of retr oplacental hemorrhage identified. The amniotic fluid index is 12.9 centimeters, which is normal. BIOMETRIC DATA: Biparietal diameter (BPD): 9.0cm ----------------> 36 weeks 3 days. Head circumference (HC): 32.2 cm ----------------> 36 weeks 3 days. Abdominal circumference (AC): 33.0 cm ----------> 36 weeks 6 days. Femur length (FL): 6.9 cm --------------------------> 35 weeks 3 days. These measurements are concordant. HC/AC ratio is 0.98 (The 5th -- 95th percentile range is 0.92-1.07. Estimated weight is 2929 g +/- 439 g. This is the greater than 97th percentile when the [facility] reported clinical gestation age 32 weeks 5 days, clinical estimated date of delivery (CB-OPE) is used. estimated gestational age based on measurements from this exam is 36 weeks 2 d ays, with an estimated date of delivery (CB-AUA) 06/27. IMPRESSION: 1. Single fetus in vertex presentation with heart rate 138 beats per minute. 2. Estimated weight of 2929 grams, greater than 97th percentile using the currently reported c linical gestation age of 32 weeks 5 days, CB(OPE) 07/22. Reviewed, dictated and finalized at location B. N MIXER IMPRESSION: 1. Single fetus in vertex presentation with heart rate 138 beats per minute. 2. Estimated weight of 2929 grams, greater than 97th percentile using th e currently reported clinical gestation age of 32 weeks 5 days, CB(OPE) 07/22.
== END 2020-06-01 10:13 | disposition home or self-care (01) ==
LOC: ANHIMG 10:14
PROVIDERS: PCP Obstetrics & Gynecology; Visit Provider Obstetrics & Gynecology
DX: I10 Essential (primary) hypertension (principal)
CPT/HCPCS: 76816

== ENCOUNTER 2020-06-03 10:20 | Outpatient (CLI) | payer MEDICAID, SELFPAY ==
[2020-06-03 11:18] VITALS: BP 132/85; PULSE 99
--- NOTE | 2020-06-03 11:40 | PC.NURSE ---
Called Dr. Stoddard with pt status. Informed of negative ROM plus and reactive tracing. Occasional contraction noted initially that pt denies feeling, and that stopped with PO hydration. BP results given. August D/C home.
== END 2020-06-03 11:50 | disposition home or self-care (01) ==
LOC: ANHOBOP 10:23 → ANHOBPP 10:26
PROVIDERS: Visit Provider Obstetrics & Gynecology
DX: O41.8X30 Other specified disorders of amniotic fluid and membranes, third trimester, not applicable or unspecified (principal); Z3A.36 36 weeks gestation of pregnancy
CPT/HCPCS: 59025; 84112; 99199

== ENCOUNTER 2020-06-21 13:27 | Observation (INO) | payer MEDICAID, SELFPAY ==
[2020-06-21 13:34] VITALS: BMI 67.5
[2020-06-21 14:33] VITALS: TEMP 36.6
--- NOTE | 2020-06-21 15:15 | OBADM ---
This patient, Roxy Shanks, admitted to the OB room Labor/Delivery/Recovery 120 for observation. Patient/family oriented to hospital policies and general routines including ID bracelet, bed and alarms, visiting hours, pain management, procedures, bathroom and other care routines, personal items, smoking policy, room service/diet, and visiting hours. Patient/Family are encouraged to report perceived risks to care and to ask questions if they do not understand what they are told or what they should do.
--- NOTE | 2020-07-16 12:26 | PM.OBTRLD ---
OB - Triage/Final Diagnosis Visit Information Comments/Additional reasons for admission: I have assessed the risk for this patient, Roxy Shanks, and determined that she would benefit from observation care. Final Diagnosis (1) Threatened labor: Code(s): O47.9 - False labor, unspecified Status: Acute
== END 2020-06-21 15:10 | disposition home or self-care (01) ==
PROVIDERS: Admitting Provider Obstetrics & Gynecology; Visit Provider Obstetrics & Gynecology
DX: O47.03 False labor before 37 completed weeks of gestation, third trimester (principal); Z3A.35 35 weeks gestation of pregnancy
CPT/HCPCS: G0378; G0379

== ENCOUNTER 2020-06-26 16:54 | Outpatient (CLI) | payer MEDICAID, SELFPAY ==
[2020-06-26 17:18] VITALS: BP 147/97; PULSE 101
[2020-06-26 17:31] VITALS: BP 145/66; PULSE 91
[2020-06-26 17:36] LABS: Basophils Absolute Auto 0.1 K/mm3 (0.0-0.1); Basophils Percent Auto 0.5 % (0.2-1.2); Eosinophils Absolute Auto 0.2 K/mm3 (0-0.3); Eosinophils Percent Auto 1.4 % (0-4.4); Hematocrit 31.1 % (37.0-47.0); Hemoglobin 8.8 g/dL (12.0-15.0); Immature Granulocyte Absolute 0.12 K/mm3 (0.00-0.031); Immature Granulocyte Percent A 0.9 % (0-0.5); Lymphocytes Percent Auto 16.5 % (18.3-44.2); Mean Corpuscular HGB Conc 28.3 g/dl (32-36); Mean Corpuscular Hemoglobin 20.4 pg (26-34); Mean Platelet Volume 10.1 fl (7.4-10.4); Monocytes Absolute Auto 1.1 K/mm3 (0.1-0.6); Monocytes Percent Auto 8.5 % (2.6-8.5); Neutrophils Absolute Auto 9.6 K/mm3 (1.3-6.7); Neutrophils Percent Auto 72.2 % (45.5-73.1); Nucleated Red Blood Cells Absolute Auto 0.1 K/mm3 (0.0-0.012); Nucleated Red Blood Cells Perc 0.6 % (0.0-0.2); Platelet Count Result 500 k/mm3 (150-375); Red Blood Count 4.32 M/mm3 (4.2-5.4); Red Cell Distribution Width 18.4 % (11.5-14.5); White Blood Count 13.3 K/mm3 (4.5-10.0)
--- NOTE | 2020-06-26 17:41 | PC.NURSE ---
Pt came in at 1654 stating she had elevated bp's at home today and has had a headache since yesterday. Pt denies taking any tylenol today stating it didn't work yesterday. She states she had some right upper epigastric pain in the last hour but currently it has resolved. Pt states her PATEL is behind her eyes. PIH workup ordered.
[2020-06-26 17:43] LABS: Add Urine Microscopic? YES; Appearance Urine Cloudy (Clear); Bacteria Urine Trace /hpf; Bilirubin Urine Negative (Negative); Blood Urine Negative (Negative); Color Urine Yellow (Yellow); Glucose Urine UA Negative (Negative); Ketones Urine Negative (Negative); Leukocyte Esterase Ur Negative LEU/UL (NEGATIVE); Mucus Urine Rare /lpf; Nitrate Urine Negative (Negative); Protein Urine Negative (Negative); RBC Urine 0-2 /hpf (0-2); Specific Grav Ur 1.019 (1.001-1.035); Squamous Epithelial Cell Urine Many /hpf (Few); Urobilinogen Urine Negative mg/dL (<2.0); WBC Urine 0-3 /hpf (0-3)
[2020-06-26 17:46] VITALS: BP 145/66; BP 146/88; PULSE 91; PULSE 95
[2020-06-26 17:52] LABS: Hypochromasia 2+ (NORMAL); Platelet Estimate Adequate (Adequate); Stomatocytes 1+ (NORMAL)
[2020-06-26 17:54] LABS: Alanine Aminotransferase 11 U/L (4-35); Albumin Level 3.4 g/dL (3.5-5.1); Alkaline Phosphatase 177 U/L (38-126); Anion Gap 6 mmol/L (8-16); Aspartate Amino Transferase 16 U/L (14-36); Bilirubin,Total 0.2 mg/dL (0.2-1.3); Blood Urea Nitrogen 8 mg/dL (7-17); Calcium 9.1 mg/dL (8.4-10.2); Carbon Dioxide 25 mmol/L (22-30); Chloride 104 mmol/L (98-107); Estimated Glomerular Filt Rate > 60; Glucose 83 mg/dL (65-105); Potassium 4.1 mmol/L (3.4-5.0); Sodium 135 mmol/L (137-145); Uric Acid 3.9 mg/dL (2.5-7.5)
[2020-06-26 18:01] VITALS: BP 151/82; PULSE 93
[2020-06-26 18:07] LABS: Creatinine Urine 99.7 mg/dL; Total Protein Urine Random 9 mg/dL; Ur Ttl Prot Creatinine Ratio 0.09 mg/mg (0-0.20)
[2020-06-26 18:16] VITALS: BP 152/84; PULSE 95
[2020-06-26] MEDS: ACETAMINOPHEN 500 MG TABLET 1000 MG PO (18:29)
== END 2020-06-26 18:36 | disposition home or self-care (01) ==
LOC: ANHOBOP 17:00 → ANHLDR 17:03
PROVIDERS: Visit Provider Obstetrics & Gynecology
DX: O13.9 Gestational [pregnancy-induced] hypertension without significant proteinuria, unspecified trimester (principal); Z3A.00 Weeks of gestation of pregnancy not specified
CPT/HCPCS: 36415; 59025; 80053; 81001; 82570; 84156; 84550; 85025; 87086; 87088; 99199; A9270

== ENCOUNTER 2020-06-29 10:35 | Outpatient (CLI) | payer MEDICAID, SELFPAY ==
--- NOTE | ~2020-06-29 | US_ITS ---
EXAMINATION: US OB follow up DATE: 06/29/2020 11:01 INDICATION: Maternal care for excessive growth. TECHNIQUE: Real-time transabdominal obstetric ultrasound. FINDINGS: Comparison to multiple prior studies sequentially, with oldest reviewed study dated 2019. There is a single living fetus in vertex presentation. The placenta is anterior without placenta pre via. cardiac activity and movement is noted with a heart rate of 165 beats per minute. T he amniotic fluid volume is subjectively low. The following biometric data were obtained: BPD: 97mm corresponds to gestational age 39 weeks 3 days. Head circumference: 321mm corresponds to gestational age 36 weeks 2 days. Abdominal circumference: 363mm corresponds to gestational age 40 weeks 1 days. Femur length: 86mm. Estimated weight: 4082grams +/- 612 grams, greater than 97th percentile.] IMPRESSION: 1. Single living intrauterine in vertex presentation with an estimated gestational age of 36 weeks 5 days. Accelerated growth with estimated weight of 4082 g, greater than 97th pe rcentile using CB of 07/22/2020. 2. Normal placenta. 3: Amniotic fluid is subjectively low. Recommend evaluation with amniotic fluid index as clinically indicated. Reviewed, dictated and finalized at location B. IMPRESSION: 1. Single living intrauterine in vertex presentation with an estimat ed gestational age of 36 weeks 5 days. Accelerated growth with estimated weight of 4082 g, greater than 97th percentile using CB of 07/22/2020. 2. Normal placenta. 3: Amniotic fluid is subjectively low. Recommend evaluation with amniotic flui d index as clinically indicated.
== END 2020-06-29 10:36 | disposition home or self-care (01) ==
PROVIDERS: Visit Provider Obstetrics & Gynecology
DX: O36.60X0 Maternal care for excessive fetal growth, unspecified trimester, not applicable or unspecified (principal); Z3A.00 Weeks of gestation of pregnancy not specified
CPT/HCPCS: 76816

== ENCOUNTER 2020-07-02 11:15 | Outpatient (CLI) | payer MEDICAID, SELFPAY ==
--- NOTE | ~2020-07-02 | US_ITS ---
US OB limited 07/02/2020 11:54 Indication: Evaluate amniotic fluid index Procedure: High-resolution Limited obstetrical ultrasound Comparison: 06/29/2020 Findings: Single living intrauterine in vertex presentation. heart rate 139 BPM. Plac enta anterior. Amniotic fluid index is within normal limits measuring 11.8 cm. Impression: 1: Single living intrauterine in vertex presentation. 2: Normal YSABEL measures 11.8 cm. Reviewed, dictated and finalized at location B. Impression: 1: Single living intrauterine in vertex presentation. 2: Normal YSABEL measures 11.8 cm.
== END 2020-07-02 11:16 | disposition home or self-care (01) ==
PROVIDERS: Visit Provider Obstetrics & Gynecology
DX: Z34.90 Encounter for supervision of normal pregnancy, unspecified, unspecified trimester (principal); Z3A.00 Weeks of gestation of pregnancy not specified
CPT/HCPCS: 76815

== ENCOUNTER 2020-07-04 11:52 | Inpatient (IN) | payer MEDICAID, SELFPAY ==
[2020-07-04] VITALS (59 sets, daily range): BP systolic 69–177; BP diastolic 37–113; PULSE 82–117; RESP 20; TEMP 36.3–36.5; O2SAT 89–99; BMI 67.8
--- NOTE | 2020-07-04 11:52 | LDADM ---
This patient, Roxy Shanks, was admitted to Labor/Delivery/Recovery 120 on 07/04/20 at 11:52. Plans for labor, pain management and were discussed with patient. Patient/family oriented to hospital policies and general routines including ID bracelet, bed and alarms, visiting hours, pain management, procedures, bathroom and other care routines, personal items, smoking policy, room service/diet and guest tray routines, infant security routines, and visiting hours. Patient/Family are encouraged to report perceived risks to care and to ask questions if they do not understand what they are told or what they should do. See OBIX for further documentation.
--- NOTE | 2020-07-04 12:03 | P.HP_ITS ---
H&P: HPI History of Present Illness Date/Time: 07/04/20 12:03 at 37+3 came to office this morning for rou enrico OB visit. BP was 170s/100s-120s with new onset 2+ proteinuria. She has known chronic HTN so she likely had superimposed pre-E. She was sent to hospital for urgent delivery (repeat C/S due to h/o prior C/S). She reports pressure behind eyes but no PATEL or visual changes. movement present but decreased. Back pain. no obvious ctx. No leaking fluids or vaginal bleeding. Chief Complaint: Severe preeclampsia Review of Systems Review of Systems: All systems reviewed & are unremarkable except as noted in HPI and below PMFSH Past Medical History Medical History Acid reflux Anemia affecting delivery delivered X2 04/2009 full term male 7lbs 13oz 05/2017 full term male 8lbs 2oz Migraines Miscarriage X2 09/2018 Tonsillectomy planned Surgical History Surgical History H/O dilation and curettage X2 Family History Family History Other Breast cancer Mother Cervical cancer Social History Social History Smoking status: Never smoker Alcohol intake: current Drinks per week: 1 Substance use: current Substance use type: marijuana Other substance usage details: 3 times weekly Gender identity (if verbalized by the patient): Female Meds Home Medications and Allergies Home Medications Medication Instructions Recorded Confirmed Type Gummies 2 tablet PO DAILY 02/20/20 06/26/20 History albuterol sulfate 2 inh INHALATION Q4-6H PRN #1 ea 04/28/20 06/26/20 Rx nifedipine 30 mg tablet,extended 30 mg PO DAILY #30 tablet 06/01/20 06/26/20 Rx release 24 hr acetaminophen 1,000 mg PO Q6H PRN 06/26/20 06/26/20 History Allergies Allergy/AdvReac Type Severity Reaction Status Date / Time No Known Allergies Allergy Verified 07/04/20 10:42 Exam Const: General: healthy appearing and no acute distress Resp: Auscultation: clear to auscultation bilaterally Cardio: Rate: regular rate GI: Inspection: non-distended GI Palp: Yes Soft to palpation and No Tenderness to palpation present (GI) Extrem: General: no calf tenderness and edema (2+ bilateral) Psych: Mental Status: mental status grossly normal Assessment and Plan Assessment and plan (1) Chronic hypertension with superimposed preeclampsia: Code(s): O11.9 - Pre-existing hypertension with pre-eclampsia, unspecified trimester Status: Acute Assessment and Plan: She agrees to urgent C/S due to superimposed preeclampsia. Start magnesium sulfate for seizure prophylaxis. Observe BP closely. Check PIH labs. Proceed with C/S due to h/o prior C/S. She signed consent after risks, benefits, complications, and alternatives discussed.
--- NOTE | 2020-07-04 12:34 | WPDANESEPPF ---
Anes - Initial Pre Proc Eval Procedure: Operation Date: 07/04/20 15:30 Proposed Procedures p Repeat Section - Tiarra Stoddard MD Operation Date: 07/09/20 07:30 Proposed Procedures p Repeat Section - Tiarra Stoddard MD Date/Time: 07/04/20 12:34 Surgeon: Tiarra Stoddard MD Pre Op Diagnosis: section Patient Data Age: 30 Gender: F Height: 5 ft 5 in Weight: 185 kg Last Vital Signs Pulse 93 07/04/20 12:16 BP 161/102 H 07/04/20 12:16 Allergies Allergy/AdvReac Type Severity Reaction Status Date / Time No Known Allergies Allergy Verified 07/04/20 10:42 Home Medications Medication Instructions Recorded Confirmed Type Gummies 2 tablet PO DAILY 02/20/20 06/26/20 History albuterol sulfate 2 inh INHALATION Q4-6H PRN #1 ea 04/28/20 06/26/20 Rx nifedipine 30 mg tablet,extended 30 mg PO DAILY #30 tablet 06/01/20 06/26/20 Rx release 24 hr acetaminophen 1,000 mg PO Q6H PRN 06/26/20 06/26/20 History Patient hx anesthesia problems: none Family hx anesthesia problems: none PMFSH Past Medical History Medical History Acid reflux Anemia affecting Asthma delivery delivered X2 04/2009 full term male 7lbs 13oz 05/2017 full term male 8lbs 2oz Gestational hypertension Migraines Miscarriage X2 09/2018 Tonsillectomy planned Surgical History Surgical History H/O dilation and curettage X2 Family History Family History Other Breast cancer Mother Cervical cancer Social History Social History Smoking status: Never smoker Alcohol intake: current Drinks per week: 1 Substance use: current Substance use type: marijuana Other substance usage details: 3 times weekly Gender identity (if verbalized by the patient): Female Anes - Eval Final PreProcedure Day of Procedure 07/04/20 12:34 Patient weight: super morbidly obese Heart: regular rate and rhythm Lungs: clear to auscultation Airway: Mallampati scale class II Neurological: alert and oriented Last oral intake: >/= 8 hours ASA classification: III Emergent: no Anesthetic plan: proceed Anesthesia type and monitoring: regional spinal and standard monitoring Informed Consent: The patient's anesthetic plan and its attendant risks and benefits were discussed with the patient/family/POA. Questions were solicited and answers provided to the satisfaction of the patient/family/POA.
[2020-07-04 12:51] LABS: Basophils Absolute Auto 0.1 K/mm3 (0.0-0.1); Basophils Percent Auto 0.5 % (0.2-1.2); Eosinophils Absolute Auto 0.1 K/mm3 (0-0.3); Hematocrit 29.8 % (37.0-47.0); Hemoglobin 8.5 g/dL (12.0-15.0); Immature Granulocyte Percent A 0.9 % (0-0.5); Lymphocytes Absolute Auto 1.66 K/mm3 (0.9-3.2); Lymphocytes Percent Auto 15.1 % (18.3-44.2); Mean Corpuscular HGB Conc 28.5 g/dl (32-36); Mean Platelet Volume 9.8 fl (7.4-10.4); Monocytes Percent Auto 8.7 % (2.6-8.5); Neutrophils Absolute Auto 8.1 K/mm3 (1.3-6.7); Neutrophils Percent Auto 73.8 % (45.5-73.1); Nucleated Red Blood Cells Absolute Auto 0.1 K/mm3 (0.0-0.012); Platelet Count Result 431 k/mm3 (150-375); Red Blood Count 4.26 M/mm3 (4.2-5.4); Red Cell Distribution Width 18.3 % (11.5-14.5)
--- NOTE | 2020-07-04 12:51 | WPDHPUPDATE1 ---
History and Physical Update Update Date/Time: 07/04/20 12:51 History and Physical has been reviewed, including an updated exam of the patient. There are NO changes in the patient's condition. Risks, benefits, and alternatives have been discussed and questions answered. Patient agrees to proceed with procedure.
[2020-07-04] MEDS: MAGNESIUM SULF 4 GM/WATER100ML 4 GM/100 ML BAG IVPB (12:52)
[2020-07-04] MEDS: LACTATED RINGERS 1,000 ML 125 ML IV CONT (12:53)
--- NOTE | 2020-07-04 12:57 | PM.PROC ---
Procedure Note - Detailed Date of procedure: 07/04/20 Pre-op diagnosis: section Prior C section, chronic HTN with superimposed preeclampsia Post-op diagnosis: same Procedure performed: Repeat LTCS Description of procedure: She was taken to the operating room where spinal anesthesia was obtained and found to be adequate. She was prepared and draped in the normal sterile fashion in the dorsal supine position with a leftward tilt. A Pfannenstiel skin incision was made over her prior incision using the scalpel and extended to the underlying layer of fascia with the Bovie and scalpel. The fascia was incised in the midline with a scalpel and extended laterally with the Lopez scissors. The underlying rectus muscles were dissected off sharply. The peritoneum was entered sharply and extended inferiorly and superiorly with good visualization of the bladder. The bladder blade was inserted. The vesicouterine peritoneum was tented up with the Metzenbaum scissors and entered sharply. The bladder flap was created sharply. The bladder blade was reinserted. The lower uterine segment was incised in a transverse fashion with the scalpel. The incision was cut using bandage scissors due to how thick the uterus was. The membranes were ruptured with clear fluid noted. The infant's head was delivered atraumatically. There was a nuchal cord x2 which was reduced easily. The shoulders and body were then delivered easily. The cord was clamped x2 and cut. The was passed to the waiting nurse. Cord gas and cord blood was obtained. The placenta was manually extracted. The uterus was exteriorized and cleared of all clots and debris. The uterine incision was closed using 0 Vicryl in a running locked fashion in 2 layers. There were still a few bleeding points along the uterine incision which were easily controlled using 0 Vicryl [id number] sutures. The uterus was then returned to the abdomen. The gutters were cleared of all clots and debris. The rectus muscles were inspected. Any bleeding points were cauterized. The fascia was then closed using 0 Vicryl in a running fashion. The subcutaneous tissue was irrigated. Any bleeding points were cauterized. The subcutaneous tissue layer measured approximately 8-10 cm, so decision was made to close the subcutaneous layer. The subcutaneous layer had also been edematous and leaking large amounts of serous fluid during the procedure. Because of this, decision was made to place a Edmund-Young drain. A CHERISE drain was placed with the incision coming out of the right side of the lower abdomen. The drain was sutured in place using a 2 0 silk suture. The subcutaneous tissue was then reapproximated in 2 layers using 2 0 Vicryl [id number] sutures. The skin was closed using Insorb absorbable cash. She tolerated the procedure well. Sponge, lap, needle, and instrument counts were correct x2. She was taken to the recovery area in stable condition. Anesthesia: spinal Surgeon: Tiarra Stoddard MD Estimated blood loss (mL): 740 Drains: Yes (Kilpatrick) Pathology: yes Complications: No immediate complications Condition: stable Disposition: floor Findings: Male infant, nuchal cord X 2, Apgars 9/9, weight 8#13oz; normal uterus, tubes, and ovaries
[2020-07-04 13:11] LABS: Anisocytosis 1+ (NORMAL); Hypochromasia 2+ (NORMAL); Microcytosis 1+ (NORMAL); Platelet Estimate Increased (Adequate); Target Cells 1+ (NORMAL)
[2020-07-04 13:43] LABS: HIV 1/2 Ab P24 Ag Result Negative (Negative)
[2020-07-04] MEDS: KETOROLAC 30 MG/ML VIAL (*BKC) IV PUSH (14:09)
[2020-07-04 14:45] LABS: Alanine Aminotransferase 13 U/L (4-35); Alkaline Phosphatase 162 U/L (38-126); Anion Gap 4 mmol/L (8-16); Aspartate Amino Transferase 19 U/L (14-36); Bilirubin,Total 0.1 mg/dL (0.2-1.3); Blood Urea Nitrogen 8 mg/dL (7-17); Carbon Dioxide 24 mmol/L (22-30); Chloride 108 mmol/L (98-107); Estimated CRCL calculation 234 ml/min; Estimated Glomerular Filt Rate > 60; Glucose 78 mg/dL (65-105); Sodium 136 mmol/L (137-145); Uric Acid 5.1 mg/dL (2.5-7.5)
[2020-07-04] MEDS: OXYTOCIN 30 UNITS/NS 500 ML 30 UNITS/500 ML BAG 75 UNITS IV CONT (15:40)
[2020-07-04] MEDS: MAGNESIUM SULF 20GM/WATER500ML 500 ML 50 MG IV CONT (15:52)
--- NOTE | 2020-07-04 17:21 | OBPPTRN ---
Patient transferred to post room # 277 via stretcher. Support person present. Oriented to unit, room, information board, rooming in, admission packet and security measures. Patient verbalizes understanding.
[2020-07-04] MEDS: NIFEdipine 30 MG TAB.ER.24 PO (17:36)
--- NOTE | 2020-07-04 17:55 | PC.NURSE ---
1657- called to give order to give lovinox 40mg QD starting at 2100 tonight.
--- NOTE | 2020-07-04 17:56 | PC.NURSE ---
1713- called with elevated bp's, no new orders at this time.
--- NOTE | 2020-07-04 17:57 | PC.NURSE ---
1716- called informing her that pt hadn't taken her procardia xl today, order received to take a dose now and every am.
--- NOTE | 2020-07-04 18:00 | PC.NURSE ---
1515-Remainder of 4gram bolus given
[2020-07-04] MEDS: ENOXAPARIN 40 MG/0.4 ML SYRINGE SUB-Q (21:02)
[2020-07-04 21:42] LABS: Magnesium 3.6 mg/dL (1.6-2.3)
[2020-07-05] VITALS (7 sets, daily range): BP systolic 117–148; BP diastolic 70–92; PULSE 87–107; RESP 15–20; TEMP 36.2–36.7; O2SAT 96–100
[2020-07-05] MEDS: MAGNESIUM SULF 20GM/WATER500ML 500 ML 75 MG IV CONT ×2 (00:24→07:33)
[2020-07-05 05:51] LABS: Magnesium 4.7 mg/dL (1.6-2.3)
[2020-07-05 06:01] LABS: Basophils Percent Auto 0.3 % (0.2-1.2); Eosinophils Absolute Auto 0.1 K/mm3 (0-0.3); Eosinophils Percent Auto 0.5 % (0-4.4); Hematocrit 26.7 % (37.0-47.0); Hemoglobin 7.4 g/dL (12.0-15.0); Immature Granulocyte Percent A 0.7 % (0-0.5); Lymphocytes Absolute Auto 2.05 K/mm3 (0.9-3.2); Lymphocytes Percent Auto 13.7 % (18.3-44.2); Mean Corpuscular HGB Conc 27.7 g/dl (32-36); Mean Corpuscular Hemoglobin 19.5 pg (26-34); Mean Corpuscular Volume 70.4 fl (80-100); Mean Platelet Volume 9.7 fl (7.4-10.4); Monocytes Absolute Auto 1.2 K/mm3 (0.1-0.6); Monocytes Percent Auto 7.8 % (2.6-8.5); Neutrophils Absolute Auto 11.5 K/mm3 (1.3-6.7); Nucleated Red Blood Cells Absolute Auto 0.1 K/mm3 (0.0-0.012); Nucleated Red Blood Cells Perc 0.4 % (0.0-0.2); Platelet Count Result 383 k/mm3 (150-375); Red Blood Count 3.79 M/mm3 (4.2-5.4); Red Cell Distribution Width 18.3 % (11.5-14.5)
[2020-07-05 06:54] LABS: Hypochromasia 1+ (NORMAL); Macrocytosis 1+ (NORMAL); Platelet Estimate Increased (Adequate)
[2020-07-05] MEDS: MULTIVIT/MIN/PREN/FOL AC/IRON TABLET 1 TAB PO (07:36)
[2020-07-05] MEDS: ACETAMINOPHEN 325 MG TABLET 650 MG PO (07:36)
[2020-07-05] MEDS: IBUPROFEN 600 MG TABLET PO ×3 (07:38→23:31)
[2020-07-05] MEDS: DOCUSATE SODIUM 100 MG CAPSULE PO ×2 (07:38→16:02)
[2020-07-05] MEDS: POLYSACCHARIDE IRON COMPLEX 150 MG CAPSULE PO ×2 (07:38→16:02)
--- NOTE | 2020-07-05 08:11 | WPDANLDPN2 ---
Anes-Prog Note L&D Date/Time: 07/05/20 08:11 Comfortable throughout: section Neuraxial method: spinal Epidural/Spinal procedure site: clean & non-tender Neuro status: Neuro function grossly intact. Cardiovascular status: normal Respiratory status: normal Airway patency: baseline Mental status: baseline Post-Op hydration status: normal Vital Signs: Last Vital Signs Temp 36.5 C 07/05/20 04:00 Pulse 89 07/05/20 04:00 Resp 20 07/05/20 04:00 BP 137/88 07/05/20 04:00 Pulse Ox 96 07/05/20 04:00 Pain score (VAS): 0 I/O: Intake & Output 07/04/20 07/05/20 07/05/20 23:59 07:59 15:59 Intake Total 500 2200 Output Total 260 618 Balance 240 1582 Post-procedural complaints: none Patient feedback: Patient satisfied with anesthetic care.
--- NOTE | 2020-07-05 08:12 | WPDANLDNPN2 ---
Anes-Prog Note L&D-Neuraxial Date/Time: 07/05/20 08:12 Neuraxial medications: intrathecal PF morphine Opiod-related complaints: none Patient feedback: Patient satisfied with post-operative pain management.
--- NOTE | 2020-07-05 08:23 | PM.OBPNVD ---
OB - PN: Subj Subjective Date/time seen: 07/05/20 08:23 Patient doing well this morning. Reported mild headache with magnesium, however, alleviated with Tylenol. Otherwise denies any chest pain, shortness of breath, nausea, vomiting, or visual disturbances. Abdominal pain well controlled with medication. Marrero catheter in place. Has not yet ambulated. No flatus yet. OB - PN: Obj Data Labs CBC & Chem 7: 07/05/20 05:29 07/04/20 12:47 Labs: Laboratory Results - last 24 hr 07/04/20 07/04/20 07/04/20 12:39 12:39 12:39 WBC 11.0 H RBC 4.26 Hgb 8.5 L Hct 29.8 L MCV 70.0 L MCH 20.0 L MCHC 28.5 L RDW 18.3 H Plt Count 431 H MPV 9.8 Immature Gran % (Auto) 0.9 H Neut % (Auto) 73.8 H Lymph % (Auto) 15.1 L Maury % (Auto) 8.7 H Eos % (Auto) 1.0 Baso % (Auto) 0.5 Lymph # (Auto) 1.66 Maury # (Auto) 1.0 H Eos # (Auto) 0.1 Baso # (Auto) 0.1 Abs Immat Gran (auto) 0.10 H Absolute Neuts (auto) 8.1 H Absolute Nucleated RBC 0.1 H Nucleated RBC % 1.0 H Platelet Estimate Increased Hypochromasia 2+ Anisocytosis 1+ Microcytosis 1+ Macrocytosis Target Cells 1+ Sodium Potassium Chloride Carbon Dioxide Anion Gap BUN Creatinine Estim Creat Clear Calc Estimated GFR Glucose Uric Acid Calcium Magnesium Total Bilirubin AST ALT Alkaline Phosphatase Total Protein Albumin HIV 1&2 Ab/P24 Ag 4thGn Negative Blood Type A Negative Antibody Screen Negative 07/04/20 07/04/20 07/05/20 12:47 21:24 05:29 WBC RBC Hgb Hct MCV MCH MCHC RDW Plt Count MPV Immature Gran % (Auto) Neut % (Auto) Lymph % (Auto) Maury % (Auto) Eos % (Auto) Baso % (Auto) Lymph # (Auto) Maury # (Auto) Eos # (Auto) Baso # (Auto) Abs Immat Gran (auto) Absolute Neuts (auto) Absolute Nucleated RBC Nucleated RBC % Platelet Estimate Hypochromasia Anisocytosis Microcytosis Macrocytosis Target Cells Sodium 136 L Potassium 4.0 Chloride 108 H Carbon Dioxide 24 Anion Gap 4 L BUN 8 Creatinine 0.50 L Estim Creat Clear Calc 234 Estimated GFR > 60 Glucose 78 Uric Acid 5.1 Calcium 9.0 Magnesium 3.6 H 4.7 H Total Bilirubin 0.1 L AST 19 ALT 13 Alkaline Phosphatase 162 H Total Protein 6.0 L Albumin 3.0 L HIV 1&2 Ab/P24 Ag 4thGn Blood Type Antibody Screen 07/05/20 05:29 WBC 15.0 H RBC 3.79 L Hgb 7.4 L Hct 26.7 L MCV 70.4 L MCH 19.5 L MCHC 27.7 L RDW 18.3 H Plt Count 383 H MPV 9.7 Immature Gran % (Auto) 0.7 H Neut % (Auto) 77.0 H Lymph % (Auto) 13.7 L Maury % (Auto) 7.8 Eos % (Auto) 0.5 Baso % (Auto) 0.3 Lymph # (Auto) 2.05 Maury # (Auto) 1.2 H Eos # (Auto) 0.1 Baso # (Auto) 0.0 Abs Immat Gran (auto) 0.10 H Absolute Neuts (auto) 11.5 H Absolute Nucleated RBC 0.1 H Nucleated RBC % 0.4 H Platelet Estimate Increased Hypochromasia 1+ Anisocytosis Microcytosis Macrocytosis 1+ Target Cells Sodium Potassium Chloride Carbon Dioxide Anion Gap BUN Creatinine Estim Creat Clear Calc Estimated GFR Glucose Uric Acid Calcium Magnesium Total Bilirubin AST ALT Alkaline Phosphatase Total Protein Albumin HIV 1&2 Ab/P24 Ag 4thGn Blood Type Antibody Screen OB - PN A/P Assessment and Plan (1) delivery delivered: Code(s): O82 - Encounter for delivery without indication Status: Acute Assessment and Plan: POD#1 doing well pain management PRN will encourage OOB to chair and ambulation d/c marrero this AM or early PM will continue to monitor CHERISE drain output continue anticoagulation (2) Chronic hypertension with superimposed preeclampsia: Code(s): O11.9 - Pre-existing hypertension with pre-eclampsia, unspecifie
[2020-07-05] MEDS: NIFEdipine 30 MG TAB.ER.24 PO (08:44)
--- NOTE | 2020-07-05 09:35 | PC.NURSE ---
Mother called out for assist with feeding . Consulted with patient, mother reports infant is sleepy and is having difficulties with latching at times. is inconsistent with eagerness and latching, some feedings will be easily awoken and latch other mother struggles to get to latch and stay awake. Discussed and the 37 2/7week infant, establishing may have its own unique set of circumstances due to their immaturity. infants may be less alert, have less stamina and may have issues with latch, suck and swallow. With the possible inability to have a vigorous suck swallow, infants may not be adequately stimulating mother and/or able to have adequate milk transfer. Pumping should be considered for additional stimulation and to offer EBM as part of supplement if needed. Reviewed infant feeding cues, frequencies, duration of feedings, feeding elimination flow sheet, and signs of adequate intake. Demonstrated stimulation techniques to wake infant for feeding. Assisted with to breast. Reviewed positioning/alignment in football, holding breast in C hold and guided asymmetrical latch on. Discussed the rational for each. Infant was able to latch correctly. Assisted with pillows to help align and assist mother with positioning. Infant nursed in bursts with eager steady draws and occasional swallowing noted followed with long pausing. Reviewed signs of a correct latch, effective nursing and suck swallow ratio. Infant was able to maintain latch without discomfort to mother. Nipple care reviewed. Advised to stimulate infant while feeding to keep infant awake and effectively feeding for increased intake and to assist with maintaining deep latch. Demonstrated how to adjust latch more deeply while feeding. Instructed mother to call out for RN assistance if she is unable to latch infant for feeding or she has discomfort with nursing. Instructed feeding should be initiated three hours from start of last feeding or if feeding cues are noted before. Mother voiced understanding
[2020-07-05 11:58] LABS: Rapid Plasma Reagin Non-Reactive (NonReactive)
--- NOTE | 2020-07-05 12:35 | PC.NURSE ---
Mother attempting to breast, reporting is sleepy and not latching. Demonstrated stimulation techniques to wake. Assisted with to breast. Reviewed positioning/alignment in cross cradle, holding breast in U hold and guided asymmetrical latch on. Discussed the rational for each. was able to latch correctly. Infant nursed in bursts with eager steady draws and occasional swallowing noted followed with long pausing. Reviewed signs of a correct latch, effective nursing and suck swallow ratio. Infant was able to maintain latch without discomfort to mother. Nipple care reviewed. Advised to stimulate infant while feeding to keep infant awake and effectively feeding for increased intake and to assist with maintaining deep latch. Demonstrated how to adjust latch more deeply while feeding. Suggested mother initiate pumping due to 's feeding pattern of sleepiness and bursts of effective feeding.
--- NOTE | 2020-07-05 13:10 | PC.NURSE ---
Breast pump provided due to near term infant. Instructions given on breast pump care and usage, pumping schedule, nipple care, and collection and storage of breast milk. Encouraged [id number], breast massage and manual expression to stimulate supply. Assessed patient for correct flange size, placement and draw. Patient verbalizes and demonstrates understanding of instructions.
--- NOTE | 2020-07-05 18:19 | PC.NURSE ---
1410 Pt's IV saline locked; pt had 788cc of LR infused on this shift.
[2020-07-05] MEDS: HYDROcodone/acetaminophen (*CRX) 5-325 MG TABLET 1 TAB PO (23:31)
[2020-07-05] MEDS: ENOXAPARIN 40 MG/0.4 ML SYRINGE SUB-Q (23:32)
[2020-07-06 04:45] VITALS: BP 140/78; PULSE 94; RESP 10; TEMP 36.4; O2SAT 97
[2020-07-06 07:30] VITALS: BP 129/69; PULSE 102; RESP 18; TEMP 37.4; O2SAT 96
[2020-07-06] MEDS: POLYSACCHARIDE IRON COMPLEX 150 MG CAPSULE PO ×2 (07:34→15:27)
[2020-07-06] MEDS: HYDROcodone/acetaminophen (*CRX) 5-325 MG TABLET 1 TAB PO ×4 (07:34→21:02)
[2020-07-06] MEDS: DOCUSATE SODIUM 100 MG CAPSULE PO ×2 (07:34→15:27)
[2020-07-06] MEDS: MULTIVIT/MIN/PREN/FOL AC/IRON TABLET 1 TAB PO (07:34)
[2020-07-06] MEDS: IBUPROFEN 600 MG TABLET PO ×3 (07:35→21:02)
[2020-07-06] MEDS: NIFEdipine 30 MG TAB.ER.24 PO (07:36)
[2020-07-06] MEDS: TETANUS,DIPHTHERIA,AC PERTUSSIS ADULT (0.5 ML) BOOSTRIX IM (07:43)
--- NOTE | 2020-07-06 08:30 | PC.NURSE ---
Consult with pt., mother reports she continues to put to breast and is now supplementing after each feeding. Mother continues to pump after most feeding attempts. Mother states is sleepy at most feedings. Reviewed infant is early and may continue with sleepiness for several days. may be more awake and eager to feed once her milk is in. Advise to give any EBM as part of supplement. Demonstrated stimulation techniques to wake for feeding. Mother is feeding as required and waking infant to feed if needed. is currently meeting outcomes for weight, output, jaundice and feeding frequencies. Mother states she feels confident to continue current feeding plan at home. Reviewed transition to breast milk, signs of adequate intake, and engorgement/relief. Instructed to call ICP if intake/output less than required. Reviewed regular medications mother is taking. Information provided per Sophia. Reviewed community resources on the [email or web address] website and in the Mom/Baby guide. Information on outpatient services provided. Mother has no further questions at this time.
--- NOTE | 2020-07-06 08:45 | PM.OBPNVD ---
OB - PN: Subj Subjective Date/time seen: 07/06/20 08:45 Patient doing well this morning states the pain is well controlled with medication. Denies any headache, chest pain, shortness of breath, nausea, or vomiting. Tolerating regular p.o. diet. Kilpatrick catheter was removed yesterday. Patient reports voiding without difficulty. Passing flatus. Also ambulating without difficulty. OB - PN: Obj Data Labs CBC & Chem 7: 07/05/20 05:29 07/04/20 12:47 Labs: Laboratory Results - last 24 hr 07/04/20 12:39 RPR Non-reactive OB - PN A/P Assessment and Plan (1) delivery delivered: Code(s): O82 - Encounter for delivery without indication Status: Acute Assessment and Plan: POD#2 doing well continue routine postoperative care encourage ambulation and use of IS pain management PRN will monitor CHERISE drain output (2) Anemia: Code(s): D64.9 - Anemia, unspecified Status: Acute Assessment and Plan: pt currently asymptomatic continue iron supplementation (3) Chronic hypertension with superimposed preeclampsia: Code(s): O11.9 - Pre-existing hypertension with pre-eclampsia, unspecified trimester Status: Acute Assessment and Plan: s/p magnesium sulfate x 24 hrs BP WNL continue Procardia XL 30mg QD Time Spent With Patient Time: Total time spent is greater than 50% in coordination of care (as documented) at patient's floor/unit and/or counseling patient: Exam Const: General: cooperative, healthy appearing, comfortable and no acute distress Other: sitting comfortably on sofa in room Resp: Effort & Inspection: normal respiratory effort and able to speak in complete sentences Auscultation: clear to auscultation bilaterally Cardio: Rate: regular rate Rhythm: regular rhythm GI: Inspection: non-distended, Pannus present and obesity GI Palp: Yes Soft to palpation and No Tenderness to palpation present (GI) Other: inc covered with bandage that is c/d/i CHERISE drain site also clean Extrem: Right lower extremity: edema Details: 1+ Left lower extremity: edema Details: 1+ Other: no calf tenderness
[2020-07-06 12:30] VITALS: BP 133/71; PULSE 105; RESP 18; TEMP 36.6; O2SAT 99
[2020-07-06 15:30] VITALS: BP 140/74; PULSE 101; RESP 18; O2SAT 100
[2020-07-06 19:00] VITALS: BP 148/82; PULSE 104; RESP 20; TEMP 36.2; O2SAT 100
--- NOTE | 2020-07-06 21:00 | PC.NURSE ---
Patient viewed the discharge video Mother & Baby Care, The First Two Weeks online. Patient was given the opportunity and encouraged to ask questions. Patient verbalized understanding of information shared and has been given the mother/baby guide for home reference.
[2020-07-06] MEDS: ENOXAPARIN 40 MG/0.4 ML SYRINGE SUB-Q (21:02)
[2020-07-06] MEDS: HYDROcodone/acetaminophen (*CRX) 10-325 MG TABLET 1 TAB PO (23:48)
[2020-07-07] VITALS: BP 145/88; PULSE 106; RESP 20; TEMP 36.4; O2SAT 99
[2020-07-07] MEDS: HYDROcodone/acetaminophen (*CRX) 5-325 MG TABLET 1 TAB PO (05:35)
[2020-07-07] MEDS: IBUPROFEN 600 MG TABLET PO ×2 (05:36→13:03)
[2020-07-07 07:30] VITALS: BP 163/81; PULSE 98; RESP 20; TEMP 36.4
[2020-07-07] MEDS: MULTIVIT/MIN/PREN/FOL AC/IRON TABLET 1 TAB PO (09:08)
[2020-07-07] MEDS: POLYSACCHARIDE IRON COMPLEX 150 MG CAPSULE PO (09:08)
[2020-07-07] MEDS: DOCUSATE SODIUM 100 MG CAPSULE PO (09:08)
[2020-07-07] MEDS: NIFEdipine 30 MG TAB.ER.24 PO (09:08)
--- NOTE | 2020-07-07 09:55 | PM.OBPNVD ---
OB - PN: Subj Subjective Date/time seen: 07/07/20 09:55 Patient doing well this morning. Pain well controlled with medication. Denies any headache, chest pain, shortness of breath, nausea, or vomiting. Tolerating regular p.o. diet. Ambulating without difficulty. Voiding well. Passing flatus. OB - PN: Obj Data Labs CBC & Chem 7: 07/05/20 05:29 07/04/20 12:47 OB - PN A/P Assessment and Plan (1) delivery delivered: Code(s): O82 - Encounter for delivery without indication Status: Acute Assessment and Plan: POD#3 doing well continue routine postoperative care discharge home in stable condition f/u in office in 2-3 days emergency precautions reviewed all questions and concerns addressed (2) Chronic hypertension with superimposed preeclampsia: Code(s): O11.9 - Pre-existing hypertension with pre-eclampsia, unspecified trimester Status: Acute Assessment and Plan: s/p magnesium sulfate x 24 hrs labs WNL BP mostly 120-140s/60-80s, last SBP 160s, however, was prior to medication will recheck prior to discharge advised to continue Procardia XL 30mg QD Time Spent With Patient Time: Total time spent is greater than 50% in coordination of care (as documented) at patient's floor/unit and/or counseling patient: Exam Const: General: cooperative, healthy appearing, comfortable and no acute distress GI: Inspection: Pannus present and obesity GI Palp: Yes Soft to palpation and No Tenderness to palpation present (GI) Other: inc covered, c/d/i CHERISE drain removed, steri strips applied Extrem: Right lower extremity: edema (trace) Left lower extremity: edema (trace) Other: no calf tenderness
--- NOTE | 2020-07-07 10:15 | PC.NURSE ---
Dr. Sol here. CHERISE drain d/c'd per MD at bedside. MD placed benzoin and 1/2 inch steri strips over puncture site. Pt tolerated procedure well.
--- NOTE | 2020-07-07 10:18 | PM.OBDSVD ---
DS: Admitting Diagnosis Admitting Diagnosis Admitting Diagnosis: Chronic hypertension with superimposed preeclampsia OB - DS: Summary OB Procedures : None and PIH Mgmt OB Procedures Intrapartum: OB Procedures: : None Peripartum Data Procedures: Procedures Operation Date: 07/04/20 15:30 Actual Procedures Side Surgeon p Repeat Section with Drain Placement Tiarra Stoddard MD Operation Date: 07/09/20 07:30 <No data on this case meets the specified criteria> Time Spent with Patient Time attestation: Total time spent providing and/or coordinating discharge services: DS: Data Data Completed and Pending Pending studies at discharge: Pending at discharge 07/04/20 14:24 Surgical [PTH] Routine Discharge Plan Discharge Attending physician on discharge: Kathleen Sol Discharging Clinician: Kathleen Sol Anticipated Discharge Date/Time: 07/07/20 10:18 Patient Disposition: Home, Self-Care Activity: no driving, as tolerated and pelvic rest Diet: as tolerated and regular Discharge Instructions: Call office ([phone]) to schedule the following appointments: 1. BP and postoperative/wound check in 2-3 days. You may take Ibuprofen 600mg every 6 hours as needed for pain. I have sent a prescription for a stronger pain medication, [place], to your pharmacy. You may take this as prescribed for breakthrough pain (pain that is not controlled with Ibuprofen). No driving for at least two weeks. You also may not drive while taking narcotics. Pain medication may make you constipated. It may be helpful to take an omzp-jen-myfhydc stool softener, such as Colace and/or Senokot, along with the pain medication to help lessen constipation. You also need to continue your blood pressure medication at home, Procardia XL 30 mg daily. You are also anemic, meaning your blood count is low. I have sent a prescription to your pharmacy for iron supplements to help increase your blood count. Call office or go to ED for pain not controlled with medication, headache, chest pain, shortness of breath, fever, chills, persistent nausea or vomiting, severe abdominal pain, heavy vaginal bleeding >2 pads/hour, foul vaginal discharge or odor, any redness near incision, severe pain, pus or drainage from incision site, or problems with your breasts. Patient Instructions: Antibiotic Form Stand Alone Forms: General Discharge Information Follow-up/Referrals: Tiarra Stoddard MD [Physician] - Discharge Medications: New hydrocodone-acetaminophen 5-325 mg Tablet 1 - 2 tablet PO Q4-6H PRN (Reason: Moderate Pain (4-6)) Qty: 30 RF: 0 ferrous sulfate 325 mg (65 mg iron) tablet 325 mg PO BID Qty: 60 RF: 0 Continued nifedipine [Procardia XL] 30 mg tablet extended release 24hr 30 mg PO DAILY Qty: 30 RF: 2 albuterol sulfate 90 mcg/actuation aerosol powdr breath activated 2 inh inhalation Q4-6H PRN (Reason: cough) Qty: 1 RF: 0 Gummies 400 mcg-35 mg- 25 mg-5 mg Tablet,Chewable 2 tablet PO DAILY RF: 0 Discontinued acetaminophen 500 mg Tablet 1,000 mg PO Q6H PRN (Reason: pain/headache) RF: 0 Date of admission: 07/04/20 11:52 Primary Care Provider: PHYSICIAN,INFORMATION SYSTEMS MANAGER Admitting Provider: Tiarra Stoddard Attending physician on admission: Tiarra Stoddard Condition: Stable
[2020-07-07 10:30] VITALS: BP 148/83
[2020-07-09 09:28] VITALS: BP 151/105; PULSE 100; RESP 32; TEMP 36.5; O2SAT 99
== END 2020-07-07 13:52 | disposition home or self-care (01) | DRG 540 ==
LOC: ANHOB2 07-07 10:29 → ANHLDR 07-09 10:17 → ANHOB2 07-09 10:17
PROVIDERS: Admitting Provider Obstetrics & Gynecology; Visit Provider Student in an Organized Health Care Education/Training Program
PROC: 10D00Z1 Extraction of Products of Conception, Low, Open Approach (ICD-10-PCS; CPT 59514; principal; 2020-07-04 15:30)
DX: O11.4 Pre-existing hypertension with pre-eclampsia, complicating childbirth (principal); O34.211 Maternal care for low transverse scar from previous cesarean delivery; O10.92 Unspecified pre-existing hypertension complicating childbirth; O99.214 Obesity complicating childbirth; E66.01 Morbid (severe) obesity due to excess calories; O69.81X0 Labor and delivery complicated by cord around neck, without compression, not applicable or unspecified; Z3A.37 37 weeks gestation of pregnancy; Z37.0 Single live birth
CPT/HCPCS: 36415; 80053; 83735; 84550; 85025; 86592; 86703; 86850; 86900; 86901; 88307; 90715; A9270; G0432; J0131; J1100; J1650; J1885; J2274; J2370; J2405; J2590; J3475; J7120

== ENCOUNTER 2020-07-09 09:53 | Outpatient (CLI) | payer OTHER, SELFPAY ==
[2020-07-09] VITALS (36 sets, daily range): BP systolic 148–199; BP diastolic 74–120; PULSE 29–101; TEMP 37.3; O2SAT 89–99
[2020-07-09] MEDS: NIFEdipine 30 MG TAB.ER.24 PO (10:23)
[2020-07-09 10:26] LABS: Basophils Absolute Auto 0.1 K/mm3 (0.0-0.1); Basophils Percent Auto 0.4 % (0.2-1.2); Eosinophils Absolute Auto 0.6 K/mm3 (0-0.3); Eosinophils Percent Auto 4.6 % (0-4.4); Hematocrit 30.3 % (37.0-47.0); Hemoglobin 8.3 g/dL (12.0-15.0); Immature Granulocyte Absolute 0.12 K/mm3 (0.00-0.031); Immature Granulocyte Percent A 0.9 % (0-0.5); Lymphocytes Absolute Auto 1.97 K/mm3 (0.9-3.2); Lymphocytes Percent Auto 14.1 % (18.3-44.2); Mean Corpuscular HGB Conc 27.4 g/dl (32-36); Mean Corpuscular Hemoglobin 19.9 pg (26-34); Mean Corpuscular Volume 72.5 fl (80-100); Mean Platelet Volume 9.5 fl (7.4-10.4); Monocytes Absolute Auto 0.9 K/mm3 (0.1-0.6); Monocytes Percent Auto 6.3 % (2.6-8.5); Neutrophils Absolute Auto 10.3 K/mm3 (1.3-6.7); Neutrophils Percent Auto 73.7 % (45.5-73.1); Nucleated Red Blood Cells Absolute Auto 0.1 K/mm3 (0.0-0.012); Nucleated Red Blood Cells Perc 0.4 % (0.0-0.2); Platelet Count Result 503 k/mm3 (150-375); Red Blood Count 4.18 M/mm3 (4.2-5.4); Red Cell Distribution Width 19.6 % (11.5-14.5)
[2020-07-09 10:35] LABS: Hypochromasia 1+ (NORMAL); Platelet Estimate Increased (Adequate); Stomatocytes 1+ (NORMAL)
[2020-07-09 10:38] LABS: Alanine Aminotransferase 34 U/L (4-35); Albumin Level 3.3 g/dL (3.5-5.1); Alkaline Phosphatase 160 U/L (38-126); Anion Gap 5 mmol/L (8-16); Aspartate Amino Transferase 29 U/L (14-36); Bilirubin,Total 0.3 mg/dL (0.2-1.3); Blood Urea Nitrogen 7 mg/dL (7-17); Calcium 8.7 mg/dL (8.4-10.2); Carbon Dioxide 29 mmol/L (22-30); Chloride 107 mmol/L (98-107); Estimated Glomerular Filt Rate > 60; Glucose 94 mg/dL (65-105); Potassium 4.1 mmol/L (3.4-5.0); Sodium 141 mmol/L (137-145)
[2020-07-09] MEDS: LABETALOL HCL INJ 100 MG/20 ML VIAL 20 MG IV PUSH (11:06)
--- NOTE | 2020-07-09 11:12 | PC.NURSE ---
1009-Pt kept in OB for elevated bp's during her follow up appt. Admission bp was 199/108. Pt denies PATEL and visual disturbances, but states she feels a heaviness in her chest but denies any pain. 1013- called, reported bp. Informed labs are being drawn now. Order received to give procardia 30xl now since pt took her morning dose around 0840. Call 30 minutes after dose if bp is still elevated. 1056- called, informed 30 minutes after procardia bp is 191/96. Order received to start hypertension initiative, start with labetalol.
--- NOTE | 2020-07-09 13:20 | PC.NURSE ---
1244- called with updated bp's. Orders received to discharge pt home and instruct her to take 2 30mg procardia xl pills and f/u in office tomorrow or Thursday. Pt states she has an appt in the office on Thursday and she has enough procardia to double the dose. Pt instructed to call or come in if she has PATEL not relieved with tylenol or visual disturbances. Pt states her chest heaviness is gone and she will call office if it returns.
== END 2020-07-09 13:19 | disposition home or self-care (01) ==
LOC: ANHOBOP 10:13 → ANHOBPP 10:14
PROVIDERS: Visit Provider Obstetrics & Gynecology
DX: O13.9 Gestational [pregnancy-induced] hypertension without significant proteinuria, unspecified trimester (principal); Z3A.00 Weeks of gestation of pregnancy not specified
CPT/HCPCS: 36415; 80053; 84550; 85025; 99199; A9270

== ENCOUNTER 2021-11-16 08:57 | Emergency (ER) | payer OTHER, SELFPAY ==
[2021-11-16 09:05] VITALS: BP 142/99; PULSE 76; RESP 18; TEMP 36.8; O2SAT 100
--- NOTE | 2021-11-16 09:14 | ED.SKABFB ---
HPI - Skin/Abscess/Foreign Bdy General Chief complaint: Skin/Abscess/Foreign Body <Sanjuanita Pat PA-C - Last Filed: 11/16/21 09:41> Stated complaint: bump on tailbone <Sanjuanita Pat PA-C - Last Filed: 11/16/21 09:41> Time Seen by Provider: 11/16/21 09:03 <Sanjuanita Pat PA-C - Last Filed: 11/16/21 09:41> History of Present Illness HPI narrative: Patient is a 31-year-old female here for evaluation of a lesion on her gluteal area. Patient states that she has had a skin tag there for her entire life, but states over the past several days, the tag has grown in size, and has bled several times. She states last night after using the bathroom, she had trouble controlling the bleeding in the area. She states that the lesion is painful when it is bleeding, but not at rest. Denies fevers, chills. <Sanjuanita Pat PA-C - Last Filed: 11/16/21 09:41> Related Data Allergies/Adverse reactions: Allergies Allergy/AdvReac Type Severity Reaction Status Date / Time No Known Allergies Allergy Verified 11/16/21 09:20 <Sanjuanita Pat PA-C - Last Filed: 11/16/21 09:41> Review of Systems Review of Systems: Gen.: Denies fevers or chills Eyes: Denies eye pain or visual change ENT: Denies congestion Respiratory: Denies shortness of breath or cough CV: Denies chest pain or palpitations GI: Denies abdominal pain nausea, emesis or diarrhea denies burning, urgency, frequency or hematuria Musculoskeletal: Denies back pain or muscle pain Neuro: Denies numbness, tingling, weakness or focal weakness Skin: Reports lesion to tailbone Except as documented, all other systems reviewed and negative <Sanjuanita Pat PA-C - Last Filed: 11/16/21 09:41> PMFSH Past Medical History Medical History: Medical History Acid reflux Anemia affecting Asthma delivery delivered X3 Gestational hypertension Migraines Miscarriage X2 09/2018 Tonsillectomy planned <Sanjuanita Pat PA-C - Last Filed: 11/16/21 09:41> Surgical History Surgical History: Surgical History H/O dilation and curettage X2 <Sanjuanita Pat PA-C - Last Filed: 11/16/21 09:41> Family History Family History: Family History Other Breast cancer Mother Cervical cancer <Sanjuanita Pat PA-C - Last Filed: 11/16/21 09:41> Social History Social History: Social History Smoking status: Never smoker Second hand tobacco smoke exposure: Yes Alcohol intake: current Drinks per week: 1 Alcohol use details: Rarely Substance use: never Substance use type: marijuana Other substance usage details: 3 times weekly Gender identity (if verbalized by the patient): Female Spiritual care concerns: No <Sanjuanita Pat PA-C - Last Filed: 11/16/21 09:41> Exam Narrative: Gen: Alert, oriented, NAD Eyes: EOMI, no icterus Pulm: Respirations even and unlabored, symmetric thorax expansion, no audible stridor or visible cyanosis CV: Regular rate per telemetry GI: No distension, no voluntary/involuntary guarding Neuro: AOx4, moves all extremities without apparent difficulty or weakness, follows commands Skin: Patient has a 3x3cm, firm, pedunculated purple mass to the gluteal cleft that is non-tender to palpation with surrounding erythema Psych: Normal mood/affect, insight/judgement good, adequate fund of knowledge, recent/remote memory intact <Sanjuanita Pat PA-C - Last Filed: 11/16/21 09:41> Course STONE CARVER/PA Physician Supervision I examined and discussed this patient with HUMAIRA Pat. I agree with the exam, assessment and plan as documented. <Nick Fox MD - Last Filed: 11/04
[2021-11-16 09:44] VITALS: BP 123/78; PULSE 76; RESP 18; O2SAT 100
== END 2021-11-16 09:46 | disposition home or self-care (01) ==
PROVIDERS: Emergency Provider Preventive Medicine Aerospace Medicine
DX: B37.2 Candidiasis of skin and nail (principal); L91.8 Other hypertrophic disorders of the skin; K21.9 Gastro-esophageal reflux disease without esophagitis; J45.909 Unspecified asthma, uncomplicated
CPT/HCPCS: 99283

== ENCOUNTER 2022-02-05 10:06 | Emergency (ER) | payer OTHER, SELFPAY ==
[2022-02-05] VITALS (29 sets, daily range): BP systolic 106–152; BP diastolic 68–110; PULSE 84–95; RESP 16–20; TEMP 36.3; O2SAT 94–100
--- NOTE | 2022-02-05 10:48 | ED.URI ---
HPI - URI/Sore Throat General Chief Complaint: Upper Respiratory Infection Stated Complaint: migraine, congestion Time Seen by Provider: 02/05/22 10:48 Source: patient and family Mode of arrival: ambulatory Limitations: no limitations History of Present Illness HPI Narrative: The patient is a 31 yo female presenting to the emergency department for evaluation of congestion, cough, headache. Patient states all of her children have been home with influenza. Patient states she has had fever, chills, nausea, headache pain. She reports history of migraine headache and states this feels similar. She denies any vomiting. Patient denies any focal abdominal pain or urinary symptoms. She denies diarrhea or constipation. Patient did take Tylenol this morning with some improvement in her symptoms. Patient denies any significant cough production or hemoptysis. No chest pain. Related Data Allergies Allergy/AdvReac Type Severity Reaction Status Date / Time No Known Allergies Allergy Verified 02/05/22 10:55 Review of Systems Review of Systems: CONSTITUTIONAL: Reports fever and chills EYES: Denies visual changes, redness, or discharge. ENT: Reports rhinorrhea, congestion CARDIOVASCULAR: Denies chest pain, palpitations, or edema. RESPIRATORY: Reports cough without shortness of breath GASTROINTESTINAL: Denies abdominal pain, reports nausea without vomiting or diarrhea GENITOURINARY: Denies dysuria or hematuria. SKIN: Denies rash or itching. MUSCULOSKELETAL: Denies back pain, joint pain, reports myalgias NEUROLOGIC: Reports headache without focal numbness, or weakness. [facility] Past Medical History Medical History Acid reflux Anemia affecting Asthma delivery delivered X3 Gestational hypertension Migraines Miscarriage X2 09/2018 Tonsillectomy planned Surgical History Surgical History H/O dilation and curettage X2 Family History Family History Other Breast cancer Mother Cervical cancer Social History Social History Smoking status: Never smoker Second hand tobacco smoke exposure: Yes Alcohol intake: current Drinks per week: 1 Alcohol use details: Rarely Substance use: never Substance use type: marijuana Other substance usage details: 3 times weekly Gender identity (if verbalized by the patient): Female Spiritual care concerns: No Course Vital Signs Vital signs: Vital Signs Temperature 36.3 C L 02/05/22 10:28 Pulse Rate 88 02/05/22 10:28 Respiratory Rate 20 02/05/22 10:28 Blood Pressure 152/97 H 02/05/22 10:28 Pulse Oximetry 100 02/05/22 10:28 Temperature 36.3 C L 02/05/22 10:28 Pulse Rate 95 02/05/22 10:54 Respiratory Rate 18 02/05/22 10:54 Blood Pressure 132/110 H 02/05/22 10:54 Pulse Oximetry 100 02/05/22 10:54 Oxygen Delivery Room Air 02/05/22 10:54 MDM - URI/Sore Throat MDM Narrative Medical decision making narrative: The patient was evaluated in the emergency department for headache, congestion. Patient vital signs are stable, she is mildly hypertensive. She was given IV fluids, migraine cocktail with great improvement in her symptoms. She also did test positive for influenza A which is likely contributing to her symptoms. Patient's headache pain was not sudden or maximal in onset. There are no focal deficits on exam thus CT head was not obtained. Subarachnoid hemorrhage is felt to be unlikely given the clinical symptoms and exam findings. There is no history of fever and neck is supple to evaluation without meningismus. Meningitis is felt to be unlikely. No traumatic history or signs of trauma on evaluation. Risk factors for cerebral venous thrombosis reviewed, no visual acu
[2022-02-05 11:12] LABS: Basophils Absolute Auto 0.1 K/mm3 (0.0-0.1); Basophils Percent Auto 0.7 % (0.2-1.2); Eosinophils Absolute Auto 0.4 K/mm3 (0-0.3); Eosinophils Percent Auto 5.3 % (0-4.4); Hematocrit 36.5 % (37.0-47.0); Hemoglobin 10.5 g/dL (12.0-15.0); Immature Granulocyte Absolute 0.02 K/mm3 (0.00-0.031); Immature Granulocyte Percent A 0.3 % (0-0.5); Lymphocytes Absolute Auto 1.02 K/mm3 (0.9-3.2); Lymphocytes Percent Auto 14.9 % (18.3-44.2); Mean Corpuscular HGB Conc 28.8 g/dl (32-36); Mean Corpuscular Hemoglobin 21.9 pg (26-34); Mean Platelet Volume 9.7 fl (7.4-10.4); Monocytes Absolute Auto 0.7 K/mm3 (0.1-0.6); Monocytes Percent Auto 10.7 % (2.6-8.5); Neutrophils Absolute Auto 4.7 K/mm3 (1.3-6.7); Neutrophils Percent Auto 68.1 % (45.5-73.1); Platelet Count Result 343 k/mm3 (150-375); Red Cell Distribution Width 18.1 % (11.5-14.5); White Blood Count 6.9 K/mm3 (4.5-10.0)
[2022-02-05 11:23] LABS: Alanine Aminotransferase 29 U/L (6-35); Alkaline Phosphatase 97 U/L (38-126); Anion Gap 10 mmol/L (8-16); Aspartate Amino Transferase 23 U/L (14-36); Bilirubin,Total 0.3 mg/dL (0.2-1.3); Blood Urea Nitrogen 9 mg/dL (7-17); Calcium 8.7 mg/dL (8.4-10.2); Carbon Dioxide 26 mmol/L (22-30); Chloride 102 mmol/L (98-107); Estimated CRCL calculation 210 ml/min; Estimated Glomerular Filt Rate > 60; Glucose 89 mg/dL (65-110); Lipase 36 U/L (23-300); Potassium 3.8 mmol/L (3.4-5.0); Sodium 138 mmol/L (137-145)
[2022-02-05] MEDS: diphenhydrAMINE HCl INJ 50 MG/ML VIAL 25 MG IV PUSH (11:23)
[2022-02-05] MEDS: ONDANSETRON INJ 4 MG/2 ML VIAL IV PUSH (11:23)
[2022-02-05] MEDS: KETOROLAC 15 MG/ML VIAL (*BKC) IV PUSH (11:23)
[2022-02-05] MEDS: SODIUM CHLORIDE 0.9% IV 1,000 ML 999 ML IV CONT (11:23)
[2022-02-05 11:42] LABS: Platelet Estimate Adequate (Adequate)
[2022-02-05 11:43] LABS: Hypochromasia 1+ (NORMAL); Stomatocytes 1+ (NORMAL)
[2022-02-05 11:44] LABS: Schistocytes None Seen (NORMAL)
[2022-02-05 11:54] LABS: Influenza A QL RT-PCR Positive (Negative); Influenza B QL RT-PCR Negative (Negative)
== END 2022-02-05 14:19 | disposition home or self-care (01) ==
PROVIDERS: Emergency Provider Emergency Medicine
DX: J10.1 Influenza due to other identified influenza virus with other respiratory manifestations (principal); G43.909 Migraine, unspecified, not intractable, without status migrainosus; K21.9 Gastro-esophageal reflux disease without esophagitis; Z86.2 Personal history of diseases of the blood and blood-forming organs and certain disorders involving the immune mechanism; J45.909 Unspecified asthma, uncomplicated
CPT/HCPCS: 36415; 80053; 83690; 85025; 87502; 96361; 96374; 96375; 99284; J1100; J1200; J1885; J2405; J7030

== ENCOUNTER 2022-07-27 20:54 | Emergency (ER) | payer OTHER, SELFPAY ==
--- NOTE | ~2022-07-27 | XR_ITS ---
Clinical Indication: Cough PA and lateral views of the chest: Comparison: 04/28/2020 Findings: The lungs are clear, without evidence of focal consolidation or pleural effusion. Cardiome diastinal silhouette is within normal limits. Bones and soft tissues are unremarkable. Impression: Normal chest. Reviewed, dictated and finalized at location . Impression: Normal chest.
[2022-07-27 20:55] VITALS: BP 152/93; PULSE 92; RESP 16; TEMP 36; O2SAT 100
--- NOTE | 2022-07-27 22:43 | ED.GENADULT ---
HPI - General Adult General Chief complaint: Upper Respiratory Infection <Ari Silva PA-C - Last Filed: 07/27/22 23:34> Stated complaint: cough, headache, nasal drainage <Ari Silva PA-C - Last Filed: 07/27/22 23:34> Time Seen by Provider: 07/27/22 22:28 <Ari Silva PA-C - Last Filed: 07/27/22 23:34> Source: patient <ADDIE العرقاي Last Filed: 07/27/22 23:34> Mode of arrival: ambulatory <Ari Silva PA-C - Last Filed: 07/27/22 23:34> Limitations: no limitations <ADDIE العراقي Last Filed: 07/27/22 23:34> History of Present Illness HPI narrative: This is a 32-year-old female with PMH of hypertension who presents to the ED with chief complaint of URI symptoms x5 days. Patient reports cough, congestion, rhinorrhea, sore throat. Also reports some central chest pain whenever she coughs. Reports deeper breathing is irritating and causes a cough. Denies hemoptysis. Denies fevers or chills. Denies abdominal pain, nausea, vomiting, shortness of breath. <Ari Silva PA-C - Last Filed: 07/27/22 23:34> Related Data Allergies/adverse reactions: Allergies Allergy/AdvReac Type Severity Reaction Status Date / Time No Known Allergies Allergy Verified 07/27/22 22:20 <Ari Silva PA-C - Last Filed: 07/27/22 23:34> Review of Systems Review of Systems: CONSTITUTIONAL: Denies fever, chills, or sweats. EYES: Denies visual changes, redness, or discharge. ENT: See HPI CARDIOVASCULAR: Denies chest pain, palpitations, or edema. RESPIRATORY: See HPI GASTROINTESTINAL: Denies abdominal pain, nausea, vomiting, or diarrhea. GENITOURINARY: Denies dysuria or hematuria. SKIN: Denies rash or itching. MUSCULOSKELETAL: Denies back pain, joint pain, or myalgia. NEUROLOGIC: Denies headache, numbness, dizziness, or weakness. PSYCHIATRIC: Denies anxiety or depression. <Ari Silva PA-C - Last Filed: 07/27/22 23:34> [facility] Past Medical History Medical History: Medical History Acid reflux Anemia affecting Asthma delivery delivered X3 Gestational hypertension Migraines Miscarriage X2 09/2018 Tonsillectomy planned <Ari Silva PA-C - Last Filed: 07/27/22 23:34> Surgical History Surgical History: Surgical History H/O dilation and curettage X2 <Ari Silva PA-C - Last Filed: 07/27/22 23:34> Family History Family History: Family History Other Breast cancer Mother Cervical cancer <Ari Silva PA-C - Last Filed: 07/27/22 23:34> Social History Social History: Social History Smoking status: Never smoker Second hand tobacco smoke exposure: Yes Alcohol intake: current Drinks per week: 1 Alcohol use details: Rarely Substance use: never Substance use type: marijuana Other substance usage details: 3 times weekly Gender identity (if verbalized by the patient): Female Spiritual care concerns: No <Ari Silva PA-C - Last Filed: 07/27/22 23:34> Exam Narrative: GENERAL: Well-appearing, well-nourished, and in no acute distress. HEAD: Normocephalic, atraumatic. EYES: PERRLA and EOMI. ENT: Nares clear, no rhinorrhea or epistaxis. Mucous membranes moist. Oropharynx without tonsillar hypertrophy exudate or other lesions. Posterior oropharynx erythema is present. NECK: Supple. No adenopathy or masses. CHEST: No respiratory distress. Clear to auscultation. No wheezes rales or rhonchi HEART: Regular rate and rhythm. No murmur heard. Normal peripheral pulses. ABDOMEN: Soft, nontender, nondistended, normal active bowel sounds. EXTREMITIES: Normal range of motion. No edema. SKIN: Warm, dry, no rash. NEURO: Alert and oriented x3. No focal defi
[2022-07-27 23:07] LABS: Influenza A QL RT-PCR Negative (Negative); Influenza B QL RT-PCR Negative (Negative); SARS-CoV-2 RNA PCR Negative (Negative)
[2022-07-27 23:37] VITALS: BP 131/79; PULSE 84; RESP 18; TEMP 36.4; O2SAT 99
== END 2022-07-27 23:38 | disposition home or self-care (01) ==
PROVIDERS: Emergency Medicine; Emergency Provider Physician Assistant
DX: J06.9 Acute upper respiratory infection, unspecified (principal); I10 Essential (primary) hypertension; Z20.822 Contact with and (suspected) exposure to COVID-19
CPT/HCPCS: 71046; 87636; 99283

== ENCOUNTER 2024-05-08 12:42 | Emergency (ER) | payer SELFPAY ==
--- OUTSIDE RECORDS SUMMARY | 2024-05-08 12:45 | XMS_ITS | Data Portability ---
[facility] Address [address] [place] [address] Care Team Providers Care Layout Designer Name Role Phone ORVILLE PLATA OTHER MELISSA AGUERO Primary Care Provider Assessment Encounter Date Assessment Date Assessment LastModified by Organization Details LastModified Time 06/18/2022 06/18/2022 Advised pt to make f/u for WWE. [email or web address] Not available 06/18/2022 18:44:00 10/16/2022 10/16/2022 Sections of the HPI, exam and assessment completed by HUMAIRA May student and have been reviewed by me. I agree with the exam findings, assessment and plan except where specifically documented or amended. -JONA Gauthier, ADDIE [email or web address] Not available 10/16/2022 16:54:30 08/14/2023 08/14/2023 Sections of the HPI, exam and assessment completed by HUMAIRA Manley student and have been reviewed by me. I agree with the exam findings, assessment and plan except where specifically documented or amended. -JONA Guathier PA-C [email or web address] Not available 08/14/2023 10:35:46 Plan of Treatment Reminders Order Date Submit Date Provider Last Modified By Organization Details Last Modified Time Details Appointments None recorded. Lab iron + total iron-bindin g capacity (TIBC), serum 2023 024 [facility], [address] [place] [address], [place], [address], 08:23:24 ferritin, serum or plasma 2023 024 [facility], [address] [facility], [facility], [place], [address], 4 08:23:25 vitamin B12 + folate, serum or blood 2023 024 [facility], [address] [facility], [facility], [place], [address], 4 08:23:24 vitamin D, 25-hydroxy, total, serum 2023 024 [facility], [address] [facility], [facility], [place], [address], 4 08:23:26 CMP, serum or plasma 2023 024 [facility], [address], [place], [address], 4 08:23:23 lipid panel, serum 2023 024 [facility], [address], [place], [address], 4 08:23:22 CBC w/ auto diff 2023 024 [facility], [address], [place], [address], 4 08:23:26 TSH + free T4, serum 2023 024 [facility], [address], [address], [place], [address], 4 08:23:22 HbA1c (hemoglobin A1c), blood 2023 024 [facility], [address], [place], [address], 4 08:23:25 Referral None recorded. Procedures None recorded. Surgeries None recorded. Imaging US, duplex, venous, lower extremity - RIGHT LOWER LEG [address] (Imaging), [address] [place] [address], [address], 4 09:26:14 US, duplex, arterial, lower extremity - RIGHT LOWER LEG [address] (Imaging), [address] [place] [address] 162, [place], [address], 4 09:26:14 Medication Orders famotidine 40 mg tablet 2023 024 [facility], [address] [place] [address], [address], 4 09:40:43 loratadine 10 mg tablet 2023 024 [facility], [address] [place] [address], [address], 4 16:21:01 triamcinolo ne acetonide 0.1 % topical ointment 2023 024 [facility], [address] [place] [address], [address], 4 09:41:53 amitriptyli ne 25 mg tablet 2023 024 [facility], [address] [place] [address], [address], 4 10:13:26 hydrochloro thiazide 25 mg tablet 2023 024 [facility], [address] [place] [address], [address], 4 09:43:38 amitriptyli ne 50 mg tablet 2023 024 par[facility], [address] [place], [address], 4 09:20:28 Trulicity 0.75 mg/0.5 mL subcutaneou s pen injector 2023 024 [facility], [address] [place], [address], 4 09:20:01 Patient TargetsNo targets recorded. Patient Instructions Encounter Date Encounter Id Patient Instructions Last Modified By Organization Details Last Modified Time 06/18/2022 [id number] A healthy lifestyle: care instructions [email or web address] Not available 06/18/2022 18:46:18 08/14/2023 [id number] A healthy lifestyle: care instructions [email or web address] Not available 08/14/2023 10:14:34 Reason for Referral None Reported. Results Created Date Observation Date Name Description Value Unit Range Abnormal Flag Note LastModifiedBy Organization Detail LastModifiedTime 08/14/1908/15/2023 TSH+F REE T4 TSH 1.130 uIU/m L 0.450- 4.500 Not Available [facility] ([facility]) [address] [place], [address], 08/15/2023 08:23:22 08/14/19 24 08/15/2023 TSH+F REE T4 T4,free(dire ct) 1.16 NG/dL 0.82-1 .77 Not Available [facility] ([facility]) [address] [place], [address], 08/15/2023 08:23:22 08/14/19 24 08/15/2023 LIPID PANEL WITH LDL/H DL RATIO cholesterol, total 170 mg/dL 100-19 9 Not Available [facility] ([facility]) [address] [place], [address], 08/15/2023 08:23:22 08/14/19 24 08/15/2023 LIPID PANEL WITH LDL/H DL RATIO triglyceride s 127 mg/dL 0-149 Not Available [facility] ([facility]) [address] [place], [address], 08/15/2023 08:23:22 08/14/19 24 08/15/2023 LIPID PANEL WITH LDL/H DL RATIO HDL cholesterol 42 mg/dL >39 Not Available [facility] ([facility]) [address] [place], [address], 08/15/2023 08:23:22 08/14/19 24 08/15/2023 LIPID PANEL WITH LDL/H DL RATIO VLDL cholesterol karmen 23 mg/dL 5-40 Not Available [facility] ([facility]) [address] [place], [address], 08/15/2023 08:23:22 08/14/19 24 08/15/2023 LIPID PANEL WITH LDL/H DL RATIO LDL chol calc (nih) 105 mg/dL 0-99 above high normal Not Available [facility] ([facility]) [address] [place], [address], 08/15/2023 08:23:22 08/14/19 24 08/15/2023 LIPID PANEL WITH LDL/H DL RATIO LDL/HDL ratio 2.5 ratio 0.0-3. 2 LDL/H DL Ratio Men Women 1/2 Avg.R isk 1.0 1.5 Avg.R isk 3.6 3.2 2X Avg.R isk 6.2 5.0 3X Avg.R isk 8.0 6.1 Not Available [facility] ([facility]) [address] [place], [address], 08/15/2023 08:23:22 08/14/19 24 08/15/2023 COMP. METAB OLIC PANEL (14) glucose 91 mg/dL 70-99 Not Available [facility] ([facility]) [address] [place], [address], 08/15/2023 08:23:23 08/14/19 24 08/15/2023 COMP. METAB OLIC PANEL (14) BUN 10 mg/dL 6-20 Not Available [facility] ([facility]) [address] [facility], [place], [address], 08/15/2023 08:23:23 08/14/19 24 08/15/2023 COMP. METAB OLIC PANEL (14) creatinine 0.55 mg/dL 0.57-1 .00 below low normal Not Available [facility] ([facility]) [address] [facility], [place], [address], 08/15/2023 08:23:23 08/14/19 24 08/15/2023 COMP. METAB OLIC PANEL (14) eGFR 124 mL/mi n/1.7 3 >59 Not Available [facility] ([facility]) [address] [place], [address], 08/15/2023 08:23:23 08/14/19 24 08/15/2023 COMP. METAB OLIC PANEL (14) BUN/creatini ne ratio 18 9-23 Not Available [facility] ([facility]) [address] [place], [address], 08/15/2023 08:23:23 08/14/19 24 08/15/2023 COMP. METAB OLIC PANEL (14) sodium 139 mmol/ L 134-14 4 Not Available [facility] ([facility]) [address] [place], [address], 08/15/2023 08:23:23 08/14/19 24 08/15/2023 COMP. METAB OLIC PANEL (14) potassium 4.3 mmol/ L 3.5-5. 2 Not Available [facility] ([facility]) [address] [place], [address], 08/15/2023 08:23:23 08/14/19 24 08/15/2023 COMP. METAB OLIC PANEL (14) chloride 102 mmol/ L 96-106 Not Available [facility] ([facility]) [address] [facility] [place] [place] [address], 08/15/2023 08:23:23 08/14/19 24 08/15/2023 COMP. METAB OLIC PANEL (14) carbon dioxide, total 22 mmol/ L 20-29 Not Available [facility] ([facility]) [address] [facility] [place], [address], 08/15/2023 08:23:23 08/14/19 24 08/15/2023 COMP. METAB OLIC PANEL (14) calcium 9.5 mg/dL 8.7-10 .2 Not Available [facility] ([facility]) [address] [place], [address], 08/15/2023 08:23:23 08/14/19 24 08/15/2023 COMP. METAB OLIC PANEL (14) protein, total 6.5 g/dL 6.0-8. 5 Not Available [facility] ([facility]) [address] [facility] [place] [place], [address], 08/15/2023 08:23:23 08/14/19 24 08/15/2023 COMP. METAB OLIC PANEL (14) albumin 4.0 g/dL 3.9-4. 9 Not Available [facility] ([facility]) [address] [facility] [place] [place], [address], 08/15/2023 08:23:23 08/14/19 24 08/15/2023 COMP. METAB OLIC PANEL (14) globulin, total 2.5 g/dL 1.5-4. 5 Not Available [facility] ([facility]) [address] [facility] [place], [address], 08/15/2023 08:23:23 08/14/19 24 08/15/2023 COMP. METAB OLIC PANEL (14) A/G ratio 1.6 1.2-2. 2 Not Available [facility] ([facility]) [address] [facility] [place], [address], 08/15/2023 08:23:23 08/14/19 24 08/15/2023 COMP. METAB OLIC PANEL (14) bilirubin, total 0.3 mg/dL 0.0-1. 2 Not Available [facility] ([facility]) [address] [facility] [place], [address], 08/15/2023 08:23:23 08/14/19 24 08/15/2023 COMP. METAB OLIC PANEL (14) alkaline phosphatase 112 IU/L 44-121 Not Available [facility]) [address] [facility] [place], [address], 08/15/2023 08:23:23 08/14/19 24 08/15/2023 COMP. METAB OLIC PANEL (14) AST (SGOT) 14 IU/L 0-40 Not Available [facility] ([facility]) [address] [facility] [place], [address], 08/15/2023 08:23:23 08/14/19 24 08/15/2023 COMP. METAB OLIC PANEL (14) ALT (SGPT) 21 IU/L 0-32 Not Available [facility] ([facility]) [address] [facility] [place] [place], [address], 08/15/2023 08:23:23 08/14/19 24 08/15/2023 VITAM IN B12 AND FOLAT E vitamin B12 555 pg/mL 232-12 45 Not Available [facility] ([facility]) [address] [facility] [place] [place], [address], 08/15/2023 08:23:24 08/14/19 24 08/15/2023 VITAM IN B12 AND FOLAT E folate (folic acid), serum 4.2 NG/mL >3.0 A serum folat e robbie ntrat ion of less than 3.1 ng/mL is consi dered to repre sent clini karmen defic iency . Not Available [facility] ([facility]) [address] [place], [address], 08/15/2023 08:23:24 08/14/19 24 08/15/2023 IRON AND TIBC iron bind.cap.(TI BC) 341 ug/dL 250-45 0 Not Available [facility] ([facility]) [address] [place], [address], 08/15/2023 08:23:24 08/14/19 24 08/15/2023 IRON AND TIBC UIBC 303 ug/dL 131-42 5 Not Available [facility] ([facility]) [address] [place], [address], 08/15/2023 08:23:24 08/14/19 24 08/15/2023 IRON AND TIBC iron 38 ug/dL 27-159 Not Available [facility] ([facility]) [address] [place], [address], 08/15/2023 08:23:24 08/14/19 24 08/15/2023 IRON AND TIBC iron saturation 11 % 15-55 below low normal Not Available [facility] ([facility]) [address] [place], [address], 08/15/2023 08:23:24 08/14/19 24 08/15/2023 HEMOG LOBIN A1C hemoglobin A1C 5.8 % 4.8-5. 6 above high normal Predi abete s: 5.7 - 6.4 Diabe coreen: >6.4 Glyce jayden contr ol for adult s with diabe coreen: <7.0 Not Available [facility] ([facility]) [address] [place], [address], 08/15/2023 08:23:25 08/14/19 24 08/15/2023 ADAMS TIN ferritin 35 NG/mL 15-150 Not Available [facility] ([facility]) [address] [facility], [place], [address], 08/15/2023 08:23:25 08/14/19 24 08/15/2023 CBC WITH DIFFE RENTI AL/PL ATELE T WBC 11.2 x10e3 /uL 3.4-10 .8 above high normal Not Available [facility] ([facility]) [address] [facility], [place], [address], 08/15/2023 08:23:26 08/14/19 24 08/15/2023 CBC WITH DIFFE RENTI AL/PL ATELE T RBC 4.94 x10e6 /uL 3.77-5 .28 Not Available [facility] ([facility]) [address] [facility], [place], [address], 08/15/2023 08:23:26 08/14/19 24 08/15/2023 CBC WITH DIFFE RENTI AL/PL ATELE T hemoglobin 12.0 g/dL 11.1-1 5.9 Not Available [facility] ([facility]) [address] [place], [address], 08/15/2023 08:23:26 08/14/19 24 08/15/2023 CBC WITH DIFFE RENTI AL/PL ATELE T hematocrit 39.7 % 34.0-4 6.6 Not Available [facility] ([facility]) [address] [place], [address], 08/15/2023 08:23:26 08/14/19 24 08/15/2023 CBC WITH DIFFE RENTI AL/PL ATELE T MCV 80 fL 79-97 Not Available [facility] ([facility]) [address] [place], [address], 08/15/2023 08:23:26 08/14/19 24 08/15/2023 CBC WITH DIFFE RENTI AL/PL ATELE T MCH 24.3 pg 26.6-3 3.0 below low normal Not Available [facility] ([facility]) [address] [facility], [place], [address], 08/15/2023 08:23:26 08/14/19 24 08/15/2023 CBC WITH DIFFE RENTI AL/PL ATELE T MCHC 30.2 g/dL 31.5-3 5.7 below low normal Not Available [facility] ([facility]) [address] [facility], [place], [address], 08/15/2023 08:23:26 08/14/19 24 08/15/2023 CBC WITH DIFFE RENTI AL/PL ATELE T RDW 15.2 % 11.7-1 5.4 Not Available [facility] ([facility]) [address] [facility], [place], [address], 08/15/2023 08:23:26 08/14/19 24 08/15/2023 CBC WITH DIFFE RENTI AL/PL ATELE T platelets 412 x10e3 /uL 150-45 0 Not Available [facility] ([facility]) [address] [facility], [place], [address], 08/15/2023 08:23:26 08/14/19 24 08/15/2023 CBC WITH DIFFE RENTI AL/PL ATELE T neutrophils 71 % notest ab. Not Available [facility] ([facility]) [address] [facility], [place], [address], 08/15/2023 08:23:26 08/14/19 24 08/15/2023 CBC WITH DIFFE RENTI AL/PL ATELE T lymphs 21 % notest ab. Not Available [facility] ([facility]) [address] [place], [address], 08/15/2023 08:23:26 08/14/19 24 08/15/2023 CBC WITH DIFFE RENTI AL/PL ATELE T monocytes 5 % notest ab. Not Available [facility] ([facility]) [address] [facility], [place], [address], 08/15/2023 08:23:26 08/14/19 24 08/15/2023 CBC WITH DIFFE RENTI AL/PL ATELE T eos 2 % notest ab. Not Available [facility] ([facility]) [address] [facility], [place], [address], 08/15/2023 08:23:26 08/14/19 24 08/15/2023 CBC WITH DIFFE RENTI AL/PL ATELE T basos 1 % notest ab. Not Available [facility] ([facility]) [address] [facility], [place], [address], 08/15/2023 08:23:26 08/14/19 24 08/15/2023 CBC WITH DIFFE RENTI AL/PL ATELE T neutrophils (absolute) 8.0 x10e3 /uL 1.4-7. 0 above high normal Not Available [facility] ([facility]) [address] [facility], [place], [address], 08/15/2023 08:23:26 08/14/19 24 08/15/2023 CBC WITH DIFFE RENTI AL/PL ATELE T lymphs (absolute) 2.3 x10e3 /uL 0.7-3. 1 Not Available [facility] ([facility]) [address] [facility], [place], [address], 08/15/2023 08:23:26 08/14/19 24 08/15/2023 CBC WITH DIFFE RENTI AL/PL ATELE T monocytes(ab solute) 0.6 x10e3 /uL 0.1-0. 9 Not Available [facility] ([facility]) [address] [facility], [place], [address], 08/15/2023 08:23:26 08/14/19 24 08/15/2023 CBC WITH DIFFE RENTI AL/PL ATELE T eos (absolute) 0.2 x10e3 /uL 0.0-0. 4 Not Available [facility] ([facility]) [address] [facility], [place], [address], 08/15/2023 08:23:26 08/14/19 24 08/15/2023 CBC WITH DIFFE RENTI AL/PL ATELE T baso (absolute) 0.1 x10e3 /uL 0.0-0. 2 Not Available [facility] ([facility]) [address] [facility], [place], [address], 08/15/2023 08:23:26 08/14/19 24 08/15/2023 CBC WITH DIFFE RENTI AL/PL ATELE T immature granulocytes 0 % notest ab. Not Available [facility] ([facility]) [address] [facility], [place], [address], 08/15/2023 08:23:26 08/14/19 24 08/15/2023 CBC WITH DIFFE RENTI AL/PL ATELE T immature grans (abs) 0.0 x10e3 /uL 0.0-0. 1 Not Available [facility] ([facility]) [address] [facility], [place], [address], 08/15/2023 08:23:26 08/14/19 24 08/15/2023 VITAM IN D, 25-HY DROXY vitamin D, 25-hydroxy 7.8 NG/mL 30.0-1 00.0 below low normal Vitam in D defic iency has been defin ed by the Insti tute of Medic ine and an Endoc rine Socie ty pract ice guide line as a level of serum 25-OH vitam in D less than 20 ng/mL (1,2) . The Endoc rine Socie ty went on to furth er defin e vitam in D insuf ficie ncy as a level betwe en 21 and 29 ng/mL (2). 1. IOM (Inst itute of Medic ine). 2010. Dieta ry refer ence delia es for calci um and D. Melanie guardado [place]: The Natio nal [facility] Press . 2. Holic k MF, Ángel lees [place], Jimi off-F errar i PATEL, et al. Evalu ation , treat ment, and preve ntion of vitam in D defic iency : an Endoc rine Socie ty clini karmen pract ice guide line. JCEM. 2010; 96(7) :1911 -30. Not Available [facility] ([facility]) [address] [facility], [place], [address], 08/15/2023 08:23:26 Result Notes None recorded. Problems Name Problem SNOMED Code Status Onset Date Resolution Date Notes Provider Name and Address Organization Details Recorded Time Headache 13200366 Active 2022 HUMAIRA GAUTHIER Attn: Vitaliyarsenio stallings,[address] [facility], [place], [address], [place] - [facility] 3 13:09:45 Essential hypertensio n 02282198 Active 2022 HUMAIRA GAUTHIER Attn: Vitaliyarsenio stallings,[address] [place], [address], [place] [facility] 3 11:59:30 Generalized anxiety disorder 50013222 Active 2022 HUMAIRA GAUTHIER Attn: Tatyana chandrakant,[address] [place], [address], [place] [facility] 3 11:59:28 Irregular periods 23606351 Active Orville Plata MD Attn: Tatyana stallings,[address] [place], [address], [place] [facility] 5 17:07:23 Morbid obesity 814357499 Active HUMAIRA GAUTHIER Attn: Tatyana chandrakant,[address] [place], [address], [place] - [facility] 3 11:59:31 Vitamin D deficiency 51951958 Active 2023 HUMAIRA GAUTHIER Attn: Tatyana stallings,[address] [place], [address], [place] [facility] 4 10:21:02 Prediabetes 468153108 Active 2023 HUMAIRA GAUTHIER Attn: Tatyana stallings,[address] [facility], [place], [address], [place] - [facility] 4 15:37:57 Streptococc al sore throat 18972114 Active Onesimochristelle Reyes null, [place] - [facility] 5 14:43:09 Right lower quadrant pain 758454010 Active Orville Plata MD Attn: Tatyana stallings,[address] [facility], [place], [address], [place] - [facility] 6 12:44:32 Upper respiratory infection 50774600 Active Odilia Dixons null, [place] - [facility] 6 12:06:56 44282093 Completed 201605/25/2017 Divine mccann MA null, [place] - [facility] 8 16:25:18 Problem Notes None recorded. Procedures Surgical History Date Name Laterality Status Provider Name and Address Organization Details Recorded Time 11/20/19 19 Cerumen Removal completed HUMAIRA ZABALA Attn: Accounting,[address] [place], [address], [facility] - [facility] 11/22/2018 14:49:12 07/01/19 18 Date of Last Pap Smear completed Divine Weaver MA [place] - [facility] 09/27/2018 09:20:50 05/26/19 18 Suture/Staple removal completed Orville Plata MD Attn: Accounting,[address] [place], [address], [facility] - [facility] 05/26/2017 14:27:16 04/06/19 10 Caesarean Section completed Vandana Baumann RN [place] - [facility] 06/05/2014 16:03:46 04/06/19 07 Tonsillectomy completed Giovanna Thakkar CMA [place] - [facility] 07/07/2016 10:02:51 Imaging Results None recorded. Procedure Notes None recorded. Medical Equipment None Reported. Allergies Allergen ID Allergen Name Allergen Category Reaction Reaction Severity Criticality Documentation Date Start Date Code Code System Note Provider Name and Address Organization Details Recorded Time [id number] Imitrex medicatio n nausea moderate Not available 04/09/2022 52225 3 RxNorm Not Available Not Available Not Available [id number] b1130 egg extract food,medi cation nausea mild Not available 04/09/2022 04020 15 RxNorm Not Available Not Available Not Available Medications Name Sig Start Date Stop Date Status Note LastModified by Organization Details LastModified Time decongestan t tab 120mg er 07/07 completed Not Available Not Available Not Available amoxicillin 500 mg capsule 10/11 completed Not Available Not Available Not Available azithromyci n 250 mg tablet 10/11 completed Not Available Not Available Not Available ibuprofen 800 mg tablet TAKE ONE TABLET BY MOUTH THREE TIMES A DAY NEEDED 11/12 completed Not Available Not Available Not Available benzonatate 200 mg capsule TAKE 1 CAPSULE BY MOUTH THREE TIMES DAILY NEEDED FOR COUGH 06/30 completed Not Available Not Available Not Available hydrocodone 5 mg-acetamin ophen 325 mg tablet 11/19 completed Not Available Not Available Not Available ondansetron HCl 4 mg tablet Take 1 tablet every 8 hours by oral route. 11/12 completed Not Available Not Available Not Available famotidine 40 mg tablet TAKE 1 TABLET BY MOUTH ONCE DAILY IN THE MORNING FOR ITCHING active Not Available Not Available No t Available prednisone 20 mg tablet 05/07 completed Not Available Not Available Not Available Debrox 6.5 % ear drops INSTILL 5 DROPS INTO AFFECTED EAR(S) BY OTIC ROUTE 2 TIMES PER DAY x30 DAYS 06/30 completed Not Available Not Available Not Available acetazolami de 250 mg tablet 10/11 completed Not Available Not Available Not Available promethazin e 6.25 mg-codeine 10 mg/5 mL syrup 11/19 completed Not Available Not Available Not Available triamcinolo ne acetonide 0.5 % topical ointment APPLY A THIN LAYER TOPICALLY TO THE AFFECTED AREA(S)TW ICE DAILY FOR 7 DAYS active Not Available Not Available No t Available ciprofloxac in 500 mg tablet 10/11 completed Not Available Not Available Not Available amitriptyli ne 50 mg tablet TAKE 1 TABLET BY MOUTH ONCE DAILY AT BEDTIME FOR HEADACHE active Not Available Not Available No t Available acetaminoph en 500 mg tablet TAKE 1 TABLET BY MOUTH EVERY 6 HOURS NEEDED FOR PAIN OR FEVER 04/09 completed Not Available Not Available Not Available amoxicillin 500 mg tablet Take 1 tablet every 12 hours by oral route for 10 days. 10/11 completed Not Available Not Available Not Available ketorolac 10 mg tablet 11/12 completed Not Available Not Available Not Available amoxicillin 875 mg tablet Take 1 tablet twice a day by oral route for 10 days. 11/12 completed Not Available Not Available Not Available amitriptyli ne 25 mg tablet TAKE 1 TABLET BY MOUTH ONCE DAILY AT BEDTIME 08/13 completed Not Available Not Available Not Available meclizine 25 mg tablet 10/11 completed Not Available Not Available Not Available benzonatate 100 mg capsule TAKE 1 CAPSULE BY MOUTH EVERY 8 HOURS NEEDED 06/30 completed Not Available Not Available Not Available triamcinolo ne acetonide 0.1 % topical ointment APPLY THIN LAYER OF OINTMENT TOPICALLY TO AFFECTED AREA TWICE DAILY FOR 7 DAYS active Not Available Not Available No t Available ranitidine 150 mg tablet Take 1 tablet twice a day by oral route. 04/09 completed Not Available Not Available Not Available promethazin e 25 mg tablet 11/12 completed Not Available Not Available Not Available ibuprofen 400 mg tablet TAKE 1 TABLET BY MOUTH THREE TIMES DAILY NEEDED FOR PAIN OR FEVER FOR 10 DAYS 04/09 completed Not Available Not Available Not Available buspirone 7.5 mg tablet TAKE 1 TABLET BY MOUTH TWICE DAILY DIRECTED 2024 active Not Available Not Available Not Avai lable hydrochloro thiazide 25 mg tablet TAKE 1 TABLET BY MOUTH ONCE DAILY IN THE MORNING active Not Available Not Available No t Available permethrin 1 % topical liquid APPLY A SUFFICIEN T AMOUNT OF SHAMPOO BY TOPICAL ROUTE ONCE ALLOW TO REMAIN ON HAIR FOR 10 MINUTES BEFORE RINSING OFF WITH WATER 08/13 completed Not Available Not Available Not Available levofloxaci n 750 mg tablet 04/09 completed Not Available Not Available Not Available ipratropium bromide 42 mcg (0.06 %) nasal spray Vicco 2 sprays twice a day by intranasa l route as directed. 07/07 completed Not Available Not Available Not Available ondansetron 4 mg disintegrat ing tablet DISSOLVE 1 TABLET IN MOUTH EVERY 8 HOURS NEEDED FOR NAUSEA AND VOMITING FOR 7 DAYS 04/09 completed Not Available Not Available Not Available Sudafed 12 Hour 120 mg tablet,exte nded release Take 1 tablet every 12 hours by oral route as directed for 7 days. 07/07 completed Not Available Not Available Not Available loratadine 10 mg tablet TAKE 1 TABLET BY MOUTH ONCE DAILY IN THE MORNING FOR ITCHING active Not Available Not Available No t Available naproxen 500 mg tablet 05/07 completed Not Available Not Available Not Available metoclopram naa 10 mg tablet 11/12 completed Not Available Not Available Not Available amoxicillin 875 mg-potassiu m clavulanate 125 mg tablet TAKE 1 TABLET BY MOUTH EVERY 12 HOURS FOR 10 DAYS 06/30 completed Not Available Not Available Not Available Ventolin HFA 90 mcg/actuati on aerosol inhaler 04/09 completed Not Available Not Available Not Available cyclobenzap rine 5 mg tablet TAKE 1 TABLET BY MOUTH THREE TIMES DAILY NEEDED FOR 14 DAYS active Not Available Not Available No t Available hydrochloro thiazide 12.5 mg tablet Take 1 tablet every day by oral route in the morning for 30 days. 05/07 completed Not Available Not Available Not Available cholecalcif isadora (vitamin D3) 1,250 mcg (50,000 unit) capsule TAKE 1 CAPSULE BY MOUTH ONCE A WEEK WITH MEALS active Not Available Not Available No t Available RhoGAM Ultra-Filte red PLUS 1,500 unit (300 mcg) intramuscul ar syringe Inject 1 syringe by intramusc ular route. 11/12 completed Not Available Not Available Not Available Mucinex DM 60 mg-1,200 mg tablet,exte nded release 12 hr TAKE 1 TABLET EVERY 12 HOURS WITH A FULL GLASS OF WATER X14 DAYS 04/15 completed Not Available Not Available Not Available Trulicity 1.5 mg/0.5 mL subcutaneou s pen injector 2023 active Not Available Not Available Not Avai lable Trulicity 0.75 mg/0.5 mL subcutaneou s pen injector Inject 0.75 mg every week by subcutane ous route as directed for 30 days. 11/04 completed Not Available Not Available Not Available VyLibra 0.25 mg-35 mcg tablet Take 1 tablet every day by oral route. 11/19 completed Not Available Not Available Not Available ID NOW COVID-19 Test Kit TEST DIRECTED TODAY active Not Available Not Available No t Available Paxlovid 300 mg (150 mg x 2)-100 mg tablets in a dose pack TAKE 3 TABLETS TOGETHER (TWO 150 MG NIRMATREL VIR TABLETS AND ONE 100 MG RITONAVIR TABLET) BY MOUTH TWICE DAILY FOR 5 DAYS. 06/30 completed Not Available Not Available Not Available Vitals Date Recorded Body height Provider Name an d Address Organization Details Last Updated DateTime 06/18/2022 166.37 cm Francoise Olivia MA [facility] 3 09:54:54 Date Recorded Body mass index (BMI) Body weight Provider Name and Address Organization Details Last Updated DateTime 06/18/2022 61.4 kg/m2 241675.35 g Francoise Olivia MA [facility] 06/18/2022 09:55:54 Date Recorded Respiratory rate Provider Name a nd Address Organization Details Last Updated DateTime 06/18/2022 18 /min Francoise Olivia MA [facility] 3 09:55:58 Date Recorded Body temperature Provider Name a nd Address Organization Details Last Updated DateTime 06/18/2022 97.6 [degF] Francoise Olivia MA [facility] 06/19/19 23 09:57:10 Date Recorded Oxygen saturation Oxygen saturation in Arterial blood by Pulse oximetry Provider Name and Address Organization Details Last Updated DateTime 06/18/2022 97 % 97 % Francoise Olivia MA [facility] 06/18/2022 09:57:19 Date Recorded Heart rate Provider Name an d Address Organization Details Last Updated DateTime 06/18/2022 88 /min Francoise Olivia MA [facility] 3 09:57:27 Date Recorded Body height Provider Name an d Address Organization Details Last Updated DateTime 10/16/2022 166.37 cm Francoise Olivia MA [facility] 3 16:24:24 Date Recorded Body mass index (BMI) Body weight Provider Name and Address Organization Details Last Updated DateTime 10/16/2022 61.8 kg/m2 064601.32 g Francoise Olivia MA [facility] 10/16/2022 16:24:34 Date Recorded Oxygen saturation Oxygen saturation in Arterial blood by Pulse oximetry Provider Name and Address Organization Details Last Updated DateTime 10/16/2022 98 % 98 % Francoise Olivia MA [facility] 10/16/2022 16:24:37 Date Recorded Heart rate Provider Name an d Address Organization Details Last Updated DateTime 10/16/2022 99 /min Francoise Olivia MA [facility] 16:24:41 Date Recorded Respiratory rate Provider Name a nd Address Organization Details Last Updated DateTime 10/16/2022 18 /min Francoise Olivia MA [facility] 16:24:42 Date Recorded Body height Provider Name an d Address Organization Details Last Updated DateTime 07/01/2023 166.37 cm Francoise Olivia MA [facility] 09:34:58 Date Recorded Body mass index (BMI) Body weight Provider Name and Address Organization Details Last Updated DateTime 07/01/2023 61.9 kg/m2 928996.92 g Francoise Olivia MA [facility] 07/01/2023 09:35:12 Date Recorded Oxygen saturation Oxygen saturation in Arterial blood by Pulse oximetry Provider Name and Address Organization Details Last Updated DateTime 07/01/2023 98 % 98 % Francoise Olivia MA [facility] 07/01/2023 09:35:14 Date Recorded Heart rate Provider Name an d Address Organization Details Last Updated DateTime 07/01/2023 76 /min Francoise Olivia MA [facility] 09:35:19 Date Recorded Respiratory rate Provider Name a nd Address Organization Details Last Updated DateTime 07/03/2023 18 /min HUMAIRA GAUTHIER Attn: Accounting,[address] [place], [address], [facility] 07/03/2023 16:21:08 Date Recorded Body height Provider Name an d Address Organization Details Last Updated DateTime 08/14/2023 166.37 cm Osmel Campos MA [facility] 08/14/2023 09:51:03 Date Recorded Body mass index (BMI) Body weight Provider Name and Address Organization Details Last Updated DateTime 08/14/2023 63.1 kg/m2 508587.06 g Osmel Campos MA [facility] 0 08/14/2023 09:51:44 Date Recorded Oxygen saturation Oxygen saturation in Arterial blood by Pulse oximetry Provider Name and Address Organization Details Last Updated DateTime 08/14/2023 98 % 98 % Osmel Campos MA [facility] 08/14/2023 09:51:53 Date Recorded Heart rate Provider Name an d Address Organization Details Last Updated DateTime 08/14/2023 98 /min Osmel Campos MA [facility] 08/14/2023 09:52:02 Date Recorded Respiratory rate Provider Name a nd Address Organization Details Last Updated DateTime 08/14/2023 20 /min Osmel Campos MA [facility] 08/14/2023 09:52:08 Date Recorded Body height Provider Name an d Address Organization Details Last Updated DateTime 10/02/2023 166.37 cm HUMAIRA GAUTHIER Attn: Accounting,[address] [place], [address], [facility] 10/02/2023 09:50:58 Date Recorded Body mass index (BMI) Body weight Provider Name and Address Organization Details Last Updated DateTime 10/02/2023 62.8 kg/m2 247201.6 g HUMAIRA GAUTHIER Attn: Accounting,[address] [place], [address], [facility] 10/02/2023 09:51:16 Date Recorded Oxygen saturation Oxygen saturation in Arterial blood by Pulse oximetry Provider Name and Address Organization Details Last Updated DateTime 10/02/2023 96 % 96 % HUMAIRA GAUTHIER Attn: Accounting, [place], [address], [place] [facility] 10/02/2023 09:51:22 Date Recorded Heart rate Provider Name an d Address Organization Details Last Updated DateTime 10/02/2023 98 /min HUMAIRA GAUTHIER Attn: Accounting,[address] [facility], [place], [address], [place] [facility] 10/02/2023 09:51:25 Date Recorded Respiratory rate Provider Name a nd Address Organization Details Last Updated DateTime 10/02/2023 18 /min HUMAIRA GAUTHIER Attn: Accounting,[address] [facility], [place], [address], [place] [facility] 10/02/2023 09:51:27 Date Recorded Systolic blood pressure Diastolic blood pressure Provider Name and Address Organization Details Last Updated DateTime 06/18/2022 136 mm[Hg] 84 mm[Hg] Francoise Olivia [place] [facility] 06/18/2022 09:57:16 Date Recorded Systolic blood pressure Diastolic blood pressure Provider Name and Address Organization Details Last Updated DateTime 10/16/2022 138 mm[Hg] 86 mm[Hg] Francoise Olivia [place] [facility] 10/16/2022 16:24:32 Date Recorded Systolic blood pressure Diastolic blood pressure Provider Name and Address Organization Details Last Updated DateTime 07/01/2023 134 mm[Hg] 84 mm[Hg] Francosie Olivia [place] [facility] 07/01/2023 09:35:09 Date Recorded Systolic blood pressure Diastolic blood pressure Provider Name and Address Organization Details Last Updated DateTime 08/14/2023 147 mm[Hg] 100 mm[Hg] Osmel Campos [place] [facility] 08/14/2023 09:51:18 Date Recorded Systolic blood pressure Diastolic blood pressure Provider Name and Address Organization Details Last Updated DateTime 08/14/2023 150 mm[Hg] 95 mm[Hg] Osmel Campos [place] [facility] 08/14/2023 09:51:37 Date Recorded Systolic blood pressure Diastolic blood pressure Provider Name and Address Organization Details Last Updated DateTime 10/02/2023 130 mm[Hg] 70 mm[Hg] HUMAIRA GAUTHIER Attn: Accounting, [place], [address], [place] [facility] 10/02/2023 09:51:07 Social History Question Answer Notes LastModified by Organizat ion Details LastModified Time Tobacco Smoking Status Former Smoker quit 2015 HUMAIRA GAUTHIER Attn: Accounting,[address] , [place], [address], [place] - [facility] 04/09/2022 11:48:54 Do You Have An Advance Directive? No [id number] Information not available 02/07/2020 What Is Your Level Of Alcohol Consumption? Occasional [id number] Information not available 02/07/2020 What Is Your Level Of Caffeine Consumption? Heavy [id number] Information not available 02/07/2020 How Much Tobacco Do You Chew? None [id number] Information not available 02/07/2020 In The 14 Days Before Symptom Onset, Have You Had Close Contact With A Laboratory-confir med COVID-19 While That Case Was Ill? No [email or web address] Information not available 06/18/2022 In The 14 Days Before Symptom Onset, Have You Had Close Contact With A Person Who Is Under Investigation For COVID-19 While That Person Was Ill? No [email or web address] Information not available 06/18/2022 Have You Been To An Area Known To Be High Risk For COVID-19? No [email or web address] Information not available 06/18/2022 Are You Currently Employed? Yes [id number] Information not available 02/07/2020 What Type Of Diet Are You Following? REGULAR [id number] Information not available 02/07/2020 Which Illicit Or Recreational Drugs Have You Used? None [id number] Information not available 02/07/2020 What Is Your Occupation? [place] [employer] [id number] Information not available 02/07/2020 Hard Of Hearing Or Deaf In One Or Both Ears? No Information not available 07/07/2016 Legally Blind In One Or Both Eyes? No Information no t available 07/07/2016 Live Alone Or With Others? With Others Information not available 07/07/2016 What Was The Date Of Your Most Recent Tobacco Screening? 08/14/2023 Information not available 08/14/2023 How Many Children Do You Have? 1 [id number] Information not available 02/07/2020 Do You Use Protection During Sex? No [id number] Information not available 02/07/2020 Seat Belts Used Routinely Yes Information not available 07/07/2016 Are You Sexually Active? Yes [id number] Information not available 02/07/2020 General Stress Level Low Information not available 07/07/2016 Do You Use Sunscreen Routinely? Yes [id number] Information not available 02/07/2020 Has Tobacco Cessation Counseling Been Provided? Yes [email or web address] Information not available 07/01/2023 On What Date Was Tobacco Cessation Counseling Provided? 08/14/2023 Information not available 08/14/2023 Sex: Female Functional Status Question Answer Note LastModified by Organization D etails LastModified Time Are you able to care for yourself? Yes [id number] Information n ot available 02/07/2020 What is your exercise level? None [id number] Information not available 02/07/2020 Mental Status None recorded. Family History Relationship Description Onset Age of this Age Resolved Age Notes LastModified by Organization Details LastModified Time Sister Attention deficit hyperactivit y disorder [email or web address] Not available 07/07 10:06:43 Brother Attention deficit hyperactivit y disorder [email or web address] Not available 07/07 10:06:43 Mother Migraine [email or web address] Not available 07/07/2016 10:06:56 Mother Malignant tumor of cervix thulsema Not available 2016 10:07:17 Medical History Condition Response Coronary Artery Disease N Other N Atrial Fibrillation N High Blood Pressure N Thyroid Problems N Kidney or Bladder Problems N GI Problems N Depression N COPD N Blood Clots N Skin Problems Y Anemia N Heart Attack (PA) N Diabetes N Anxiety Disorder N Muscle, Joint, or Bone Problems N Seizures/Epilepsy N Acid Reflux (GERD) Y Cancer N Stroke N Asthma N Allergies Y High Cholesterol N Hepatitis N Liver Disease N Headaches Y Osteoporosis N Heart Failure N Gynecological History Statement/Question Response Date of Last Pap Smear 06/30/2017 Current Control Method IUD Date of LMP LMP Obstetrics History GPAL:G 5 P 3 0 2 3 Type Value Full Term 3 Spontaneous 2 Living 3 Total 5 Immunizations Vaccine Type Date Status Note Provider Nam e and Address Organization Details Recorded Time Tdap 7 completed Not Available [facility] 04/23/2019 02:33:29 Tdap 8 completed Not Available [facility] 04/23/2019 02:34:54 Influenza, split virus, quadrivalent, PF 8 completed Not Available [facility] 04/23/2019 02:39:54 Influenza, split virus, quadrivalent, preservative 3 completed HUMAIRA GAUTHIER Attn: Accounting,[address] [facility], [place], [address], [facility] 04/09/2022 15:58:14 Past Encounters Encounter ID Performer Location Encounter Start Date Encounter Closed Date Diagnosis/Indication Diagnosis SNOMED-CT Code Diagnosis ICD10 Code Diagnosis Note [id number] Griselda Fabian Coronado ([facility] 205) [address] [facility] [place] [address] 06/12/2014 15:52:58 06/12/2014 17:42:10 Irregular periods [id number] Morbid obesity [id number] Odilia Krueger ([facility]) [address] [place] [address] 03/05/2015 14:13:50 03/05/2015 14:49:11 Streptococcal sore throat 95011440 J02.0 [id number] MD Evans Amado ([facility] 205) [address] [facility] [place] [address] 10/09/2015 12:01:37 10/09/2015 12:57:44 Right lower quadrant pain 355223864 R10.31 [id number] Odilia Krueger ([facility]) [address] [place] [address] 10/12/2015 11:38:52 10/12/2015 12:17:01 Upper respiratory infection 95907419 J06.[id number] NP [facility] [address] [place] [address] 07/07/2016 09:47:29 07/07/2016 17:36:26 Morbid obesity 408277196 E66.01 Obtain labs. Discussed weight loss techniques - eating well and exercising . Will call with lab results and further orders/fol low-up Adult heal th examination 151728300 Z00.00 Tdap administer ed. [id number] SHAMEKA Liang ([facility]am [facility]) [address] [place] [address] 09/05/2016 09:13:01 09/05/2016 09:58:54 Pain in right hand 9664638284 37938 M79.641 Counseled on right hand-luis wrap to hand today-rest hand for 2 weeks and take Ibuprofen as needed [id number] JAMISON Lane NP [facility] [address] [place] [address] 11/03/2016 10:52:49 11/03/2016 11:54:30 Ankle pain 480851735 M25.572 Discussed conservati ve tx- ice, rest, compressio n, elevation. F/u if symptoms persist/wo rsen. Foot pain 36403144 M79.6 72 Discussed conservati ve tx- ice, rest, compressio n, elevation. F/u if symptoms persist/wo rsen. [id number] [place] [address] [address] [facility] [place] [address] 11/12/2016 09:28:04 11/13/2016 11:58:31 Normal 59390678 Z34.91 Past pregn kurt history of section 528438476 Z98.236 [id number] MD Evans Amado ([place] [address]) [address] [facility] [place] [address] 12/04/2016 10:37:24 12/04/2016 14:03:45 Normal 09681605 Z34.91 Past pregn kurt history of section 390322419 Z98.766 [id number] MD Evans Amado ([place] [address]) [address] [facility] [place] [address] 01/01/2017 11:13:44 01/01/2017 16:18:43 Normal 21038734 Z34.91 [id number] MD Evans Amado ([place] [address]) [address] [facility] [place] [address] 01/29/2017 11:49:41 01/29/2017 13:15:47 Body mass index 40+ - severely obese 760259799 Z68.43 Normal 0504456 2 Z34.82 [id number] MD Evans Amado ([place] [address]) [address] [facility] [place] [address] 03/06/2017 09:55:12 03/06/2017 11:39:26 RhD negative 010714681 Z01.83 Body mass index 40+ - severely obese 217149064 Z68.43 Normal 7147846 2 Z34.82 [id number] MD Evans Amado ([place] [address]) [address] [facility] [place] [address] 03/27/2017 10:42:11 04/02/2017 09:55:01 Normal 93626078 Z34.82 Past pregn kurt history of section 605037239 Z98.670 [id number] MD Evans Amado ([place] [address]) [address] [facility] [place] [address] 04/16/2017 10:48:04 04/17/2017 12:18:52 Normal 49705193 Z34.82 Past pregn kurt history of section 197952405 Z98.240 [id number] MD Evans Amado ([place] [address]) [address] [facility] [place] [address] 04/30/2017 10:51:59 05/01/2017 15:50:37 Administration of diphtheria, pertussis, and tetanus vaccine 999804283 Z23 Administra tion of influenza vaccine 31361474 Z23 Normal 4114469 2 Z34.82 Past pregn kurt history of section 954299615 Z98.400 [id number] MD Evans Amado ([place] [address]) [address] [facility] [place] [address] 05/07/2017 14:53:03 05/13/2017 11:05:01 Body mass index 40+ - severely obese 869292746 Z68.43 Normal 7239003 2 Z34.82 [id number] MD Evans Amado ([place] [address]) [address] [facility] [place] [address] 05/15/2017 11:44:02 05/21/2017 14:12:25 Body mass index 40+ - severely obese 288616948 Z68.43 Normal 4733308 2 Z34.82 Past pregn kurt history of section 122272854 Z98.939 [id number] MD Evans Amado ([place] [address]) [address] [facility] [place] [address] 05/26/2017 13:37:00 05/27/2017 15:04:09 Removal of cash 71334153 Z48.02 Body mass index 40+ - severely obese 670222883 Z68.43 [id number] MD Evans Amado ([place] [address]) [address] [facility] [place] [address] 06/02/2017 14:05:19 06/02/2017 15:09:56 Body mass index 40+ - severely obese 976147473 Z68.43 depression 58 032953 O99.345 Contracept ion care management 815144621 Z30.9 [id number] MD Evans Amado ([place] [address]) [address] [facility] [place] [address] 06/30/2017 15:06:49 07/03/2017 18:36:58 care 688002849 Z39.2 Body mass index 40+ - severely obese 219872961 Z68.[id number] NP [facility] [address] [place] [address] 07/13/2017 14:45:35 07/14/2017 11:31:08 Acute sinusitis 19255728 J01.90 Start oral antibiotic s. Avoid decongesta nts d/t elevated BP. Discussed conservati ve tx- saline gargles, ibuprofen, Zyrtec, flonase prn. F/u as needed. [id number] JAMISON Lane NP [facility] [address] [place] [address] 11/12/2017 10:14:06 11/12/2017 12:40:13 Migraine 04287270 G43.909 -Start amitriptyl ine-Make apt with eye doctorRasheeda mcgill obtain recent ER visit-F/u prn Snoring 70810138 R06.83 -Refer to sleep medicine [id number] JAMISON Lane NP [facility] [address] [place] [address] 05/07/2018 15:30:49 05/07/2018 16:26:38 Gastroesophageal reflux disease 266276141 K21.9 -Start ranitidine as directed-B land diet-Avoid soda-F/u prn Right uppe r quadrant pain 734349363 R10.11 -Obtain labs-Obtai n US of gallbladde r-F/u prn [id number] HUMAIRA ZABALA [facility] [address] [place] [address] 11/19/2018 14:58:55 11/23/2018 08:04:01 Impacted cerumen in right ear 8230821665 075894 H61.21 Roxy is a 28 YO F presenting with right eat fullness and disequilib rium. On exam right ear is fully impacted with cerumen. - removal of cerumen in office visit- sent home with debrox- f/u if continues to have disequilib rium and ear fullness. [id number] HUMAIRA GAUTHIER [facility] [address] [place] [address] 04/09/2022 11:09:54 04/10/2022 12:19:08 Administration of influenza vaccine 32504521 Z23 Upper resp iratory infection 53772456 J06.9 c/o productive cough with white colored sputum and chest congestion x4 dayskids are sick with similar symptomsta almaz sudafed and dayquil gel tablets w/o reliefno concerning sxPEx- impacted cerumen of bilateral earsc/w OTC medstrial mucinexf/u in 1 wk if no improvemen t - Drink lots of fluids, water, gatorade. - Run a cool-mist humidifier in your room at night. - For sore throat, gargle warm salt water. - Get extra rest and do not over-exert yourself. - Do not mix multiple medication s with similar ingredient s (for instance Theraflu Non-drowsy and Tylenol Sinus). Doubling up on acetaminop hen and/or decongesta nts such as pseudephed rine can be dangerous. - Robitussin DM at bed time only (if cough keeps you awake) (and if not or on SSRI antidepres sants. Headache 27519108 R51.9 since childhoods tarts in the back of head, middle of neck and radiates out like someone is banging me in the back of the head with a baseball bat occurs when she is waking up or throughout the daystarts as dull ache and then turns into a migrainese nsitive to light/soun d, nauseatake s excedrin or tylenolwen t to [facility] 5 yrs ago- ddx pseudo cerebri tumortried imitrex, made her sickPEx- nltrial amitriptyl ine 25 mg qhs, advised pt of ADRf/u in 1 mo Elevated blood-pressure reading without diagnosis of hypertension 971678870 R03.0 HTN with pregnancie s [id number] and feet swelling a/w headachesB P 156/102, 140/90tria l HCTZ 12.5 mgf/u in 1 mo Morbid obesity 699632624 E66.01 discussed increasing exercise and healthier food options, high protein, low fat diet Generalize d anxiety disorder 30455131 F41.1 MARTA 16, severewors e since 2 spontaneou s abortions in 2019 and 2019kids are super loud and won't settle down feels overwhelmi ng and too much around me anxiety is constantwi ll address at f/u visit Impacted c erumen of bilateral ears 1945074129 183546 H61.23 trial debrox Depression screening 171 632597 Z13.31 PHQ 9 [id number] HUMAIRA GAUTHIER [facility] [address] [place] [address] 05/07/2022 10:08:02 05/08/2022 17:03:54 Headache 45851938 R51.9 05/07/22:onl y had to take tylenol 2x on top of taking amitriptyl inec/w current dose 04/09/22:sin ce childhoods tarts in the back of head, middle of neck and radiates out like someone is banging me in the back of the head with a baseball bat occurs when she is waking up or throughout the daystarts as dull ache and then turns into a migrainese nsitive to light/soun d, nauseatake s excedrin or tylenolwen t to [facility] 5 yrs ago- ddx pseudo cerebri tumortried imitrex, made her sickPEx- nltrial amitriptyl ine 25 mg qhs, advised pt of ADRf/u in 1 mo Elevated blood-pressure reading without diagnosis of hypertension [id number] R03.0 04/09/22:HTN with pregnancie s d7prscr and feet swelling a/w headachesB P 156/102, 140/90tria l HCTZ 12.5 mgf/u in 1 mo Generalize d anxiety disorder [id number] F41.1 05/07/22:MARTA 14trial buspirone 7.5 BID, advised of ADRf/u in 1 mo 04/09/22:MARTA 16, severewors e since 2 spontaneou s abortions in 2018 and 2019kids are super loud and won't settle down feels overwhelmi ng and too much around me anxiety is constantwi ll address at f/u visit Impacted c erumen of bilateral ears [id number] 805176 H61.23 used for 2 wks then kids lost scriptPEx- bilateral cerumen impactiont rial debrox for 1 mo Morbid obesity 854221814 E66.01 lost 6 lbsincreas ing protein in diet Depression screening 171 190561 Z13.31 PHQ 6 Essential hypertension [id number] I10 05/07/22:BP 140/88 x2 in officeincr ease HCTZ from 12.5 to 25f/u in 1 mo for BP check [id number] HUMAIRA GAUTHIER [facility] [address] [place] [address] 06/18/2022 09:51:28 06/18/2022 10:33:31 Headache [id number] R51.9 06/18/22:cu rrently had sinus infectiona dvised to f/u if need to increase amitriptyl ine 05/07/22:onl y had to take tylenol 2x on top of taking amitriptyl inec/w current dose 04/09/22:sin ce childhoods tarts in the back of head, middle of neck and radiates out like someone is banging me in the back of the head with a baseball bat occurs when she is waking up or throughout the daystarts as dull ache and then turns into a migrainese nsitive to light/soun d, nauseatake s excedrin or tylenolwen t to [facility] 5 yrs ago- ddx pseudo cerebri tumortried imitrex, made her sickPEx- nltrial amitriptyl ine 25 mg qhs, advised pt of ADRf/u in 1 mo Essential hypertension [id number] I10 06/18/22:13 6/84on HCTZ 25 05/07/22:BP 140/88 x2 in officeincr ease HCTZ from 12.5 to 25f/u in 1 mo for BP check Generalize d anxiety disorder [id number] F41.1 06/18/22:GA D 5doing well with buspirone, c/w current dose 05/07/22:MARTA 14trial buspirone 7.5 BID, advised of ADRf/u in 1 mo 04/09/22:MARTA 16, severewors e since 2 spontaneou s abortions in 2018 and 2019kids are super loud and won't settle down feels overwhelmi ng and too much around me anxiety is constantwi ll address at f/u visit Depression screening 171 895915 Z13.31 PHQ 0 Morbid obesity 616715438 E66.01 lost 6 lbsincreas ing protein in diet [id number] HUMAIRA GAUTHIER [facility] [address] [place] [address] 10/16/2022 16:21:41 10/16/2022 17:00:21 Muscle spasm of thoracic back [id number] 44156 M62.830 Woke up 2 days ago with mid back painno trauma or injurydesc ribes pain as muscle spasmsPEx- moderate TTP to midline thoracic paraspinal muscle, FROM thoracic spine, no edemamost likely muscle spasm/stra inContinue using heat and avoid picking up kids until pain has resolvedEn couraged stretching Double dose of cyclobenza jamar, advise to take (2) 5 mg of flexerilFo llow-up as needed [id number] HUMAIRA GAUTHIER [facility] [address] [place] [address] 07/01/2023 09:29:57 07/01/2023 09:46:04 Pruritic rash 22664990 L28.2 x3 wksoccurre d after using resin, wearing gloves and a lot of fumes were produced r ed bumps to forearms and legstried OTC creams and benadryl w/o reliefunkn own exacerbati ng factorsPEx - diffuse, <1mm raised, circular, erythemato us papules to bilateral forearmstr ial famotidine and claritin for itchingtri al triamcinol one for rash x1 wk Headache 58275904 R51.9 07/01/23: refill meds 06/18/22:cu rrently had sinus infectiona dvised to f/u if need to increase amitriptyl ine 05/07/22:onl y had to take tylenol 2x on top of taking amitriptyl inec/w current dose 04/09/22:sin ce childhoods tarts in the back of head, middle of neck and radiates out like someone is banging me in the back of the head with a baseball bat occurs when she is waking up or throughout the daystarts as dull ache and then turns into a migrainese nsitive to light/soun d, nauseatake s excedrin [facility] ddx pseudo cerebri tumortried imitrex, made her sickPEx- nltrial amitriptyl ine 25 mg qhs, advised pt of ADRf/u in 1 mo Essential hypertension [id number] I10 07/01/23: BP 134/84refi ll HCTZ 25 06/18/22:13 6/84on HCTZ 25 05/07/22:BP 140/88 x2 in officeincr ease HCTZ from 12.5 to 25f/u in 1 mo for BP check [id number] HUMAIRA GAUTHIER [facility] [address] [place] [address] 08/14/2023 09:45:13 08/14/2023 10:17:25 Headache 10525415 R51.9 08/14/23: c/o headaches daily, increase amitriptyl ine from 25 to 50 07/01/23: refill meds 06/18/22:cu rrently had sinus infectiona dvised to f/u if need to increase amitriptyl ine 05/07/22:onl y had to take tylenol 2x on top of taking amitriptyl inec/w current dose 04/09/22:sin ce childhoods tarts in the back of head, middle of neck and radiates out like someone is banging me in the back of the head with a baseball bat occurs when she is waking up or throughout the daystarts as dull ache and then turns into a migrainese nsitive to light/soun d, nauseatake s excedrin or tylenolwen t to [facility] 5 yrs ago- ddx pseudo cerebri tumortried imitrex, made her sickPEx- nltrial amitriptyl ine 25 mg qhs, advised pt of ADRf/u in 1 mo Morbid obesity [id number] E66.01 discussed increasing exercise and healthier food options, high protein, low fat dietroutin e labs Dizziness 663226473 R42 episodes of head quiñones, dizziness, feeling warm, light headed x3-4 weekslasts 30 seconds, occurs 1-2x/dayde nies head injury or traumasits at a computer all day for workdoes not eat breakfastP Ex- nl, neuro exam normallabs today, check iron, vit D and vit D07crrl f/u with resultscou ld be due to hypoglycem ia/hyperte nsion/hypo tension, rec'd pt buy BS and BP meter and start checking BS and BP when episodes occur Essential hypertension 80631623 I10 08/14/23: BP 147/100, 150/95, did not take BP meds yet 07/01/23: BP 134/84refi ll HCTZ 25 06/18/22:13 6/84on HCTZ 25 05/07/22:BP 140/88 x2 in officeincr ease HCTZ from 12.5 to 25f/u in 1 mo for BP check Depression screening 171 068324 Z13.31 PHQ 1 [id number] HUMAIRA GAUTHIER [facility] [address] [place] [address] 10/02/2023 09:34:57 10/02/2023 10:01:57 Swelling of lower leg 210792197 R22.41 x2 wksredness , swelling, tenderness to R lower leg after fall [id number] to touchconce rned for blood clotPEx- nl, no edema, non-TTP RLEpt requesting imaging studiesdis cussed with pt and at length low suspicion for DVT due to symptoms and MOA Morbid obesity 848337583 E66.01 discussed increasing exercise and healthier food options, high protein, low fat diet Prediabetes 412044153 R7 3.03 08/2023 a1c 5.8pt requesting to try injectable for weight loss Tight chest 84904773 R07 .89 x1 wk more noticeable after she has been walking/mo re activeDeni es cough, SOB, sharp chest pain, or increased stress/anx ietyNo h/o asthmaPEx- nlreassure d pt, f/u with any new or worsening sx Health Concerns Section Related Observation LastModified by Organization Detai ls LastModified Time None Recorded Concern Status LastModified by Organization Details LastModified Time None Recorded Advance Directives Directive N: Payers Encounter Date Sequence Insurance Name Policy Number Policy Joy Covered Member ID Joy Member ID Guarantor Name 06/18/2022 1 [facility] (MEDICAID HMO) [id number] Roxy M Vatole [id number] Roxy M Vatole 10/16/2022 1 [facility] (MEDICAID HMO) [id number] 0003 Roxy M Vatole [id number] Roxy M Vatole 07/01/2023 1 [facility] (MEDICAID HMO) [id number] 0003 Roxy M Vatole [id number] Roxy M Vatole 08/14/2023 1 [facility] [place] ([place] H[place]) [id number] 0003 Roxy M Vatole [id number] Roxy M Vatole 10/02/2023 1 [facility] (MEDICAID HMO) [id number] 0003 Roxy M Vatole [id number] Roxy M Vatole Notes Date Note Type Note Provider Name and Address Organization Details Recorded Time 06/18/2022 text/html Pt presents for anxiety and BP f/u. HUMAIRA GAUTHIER Attn: Accounting,[address] [place], [address], [facility] 06/18/2022 18:47:23 10/16/2022 text/html 32 yo female presents for acute mid back pain She woke up 2 days ago with severe back pain. She denies any trauma or inciting event leading to her back pain. Pain is located in the middle of her back. Describes as someone has their knee on my back and is twisting the muscle. Tried muscle relaxer x1, made her feel tired w/o pain relief. Pt has been using heating pad and ice pack w/o relief. Has difficulty picking up her 3 yr old due to pain. HUMAIRA GAUTHIER Attn: Accounting,[address] [place], [address], [facility] 10/20/2022 11:34:56 07/01/2023 text/html Pt presents with rash to bilateral forearms x3 wks. Reports that she was using resin to make plastic figures, wearing gloves, and a lot of fumes are produced with the resin. Pt woke up the next morning with red bumps all over her arms and thighs. Describes as very itchy like something is crawling all over me. She has tried OTC lotions and benadryl w/o relief. No new foods, soaps, lotions, detergents, or clothing. HUMAIRA GAUTHIER Attn: Accounting,[address] [place], [address], [facility] 07/03/2023 16:25:39 08/14/2023 text/html Roxy is a 3 3 y/o F c/o episodes of head quiñones, dizziness, feeling warm, light headed. It started a couple weeks ago and is happening 1-2 x a day. It lasts for 30 seconds and goes away. She tries to get up and walk around, but feels unbalanced. Pt works a sedentary job, sitting at a computer all day. She wears blue light glasses. Pt has increased her water intake, she skips breakfast, but typically eats lunch. Still c/o of headaches daily. She did not take her BP med this morning and does not check her blood pressure at home. Denies any blurry vision, ringing in ears, head injury or trauma. HUMAIRA GAUTHIER Attn: Accounting,[address] [place], [address], [facility] 08/19/2023 09:26:43 10/02/2023 text/html Pt presents with R leg pain, redness and swelling x2 wks. Reports symptoms started after she felt 2x and landed on her R knee/field. States that R calf is painful to touch and pt concerned she has a blood clot. C/o chest heaviness x1 wk. Endorses that it is more noticeable after she has been walking/more active. Denies cough, SOB, sharp chest pain, or increased stress/anxiety. No h/o asthma. HUMAIRA GAUTHIER Attn: Accounting,[address] [facility], [place], [address], [facility] 10/02/2023 15:04:11 OBGyn Episode Ob Episode Information Episode Created Date Number of Fetuses Patient Bloodtype Patient rh Status Prepregnancy Weight lbs Domestic Partner Domestic Partner Phone Father Name Lane Attendant Status 06/06/19 15 1 CLOSED Fetus Data First Name Last Name Admitted to NICU Weight (g) Sex Living Outcome Pediatric Complications Fetus ID Race Codes Race Delivery Type 3542.55 352 M [id number] Zeke Calculation Initial Zeke Date Initial Exam Date Initial Exam Provider Initial Ultrasound Date Last Menstrual Period Date Ultra Sound Weeks Gestation 0 Eighteen To Twenty Week Zeke Update Ultra Sound Date Fundal Height At Umbil Quickening Date Ultra Sound Latest Weeks Gestation Final Zeke Confirmed By Final Zeke Confirmed Date Final Zeke Date Ultra Sound Latest Days Gestation 0 0 Menstrual History Last Menstrual Date Menses Monthly On Bcp Conception Prior Menses Frequency Hcg Plus Date Menarche Onset Age Delivery Information Delivery Date Delivery Type Labor Anesthesia Weeks Gestation Incision Type Labor Labor Length Hrs Delivered By Post Complications Tubal Sterilization Discharge Date Comments [address] Jc o/c Dr. Plata Discharge Information Feeding Method Contraceptive Method Maternal HG B and HCT Levels Ob Episode Information Episode Created Date Number of Fetuses Patient Bloodtype Patient rh Status Prepregnancy Weight lbs Domestic Partner Domestic Partner Phone Father Name Lane Attendant Status 11/13/19 17 1 A Negative [facility] CLOSED Fetus Data First Name Last Name Admitted to NICU Weight (g) Sex Living Outcome Pediatric Complications Fetus ID Race Codes Race Delivery Type Sae Langford false 3685.43 5 M true Full Term [id number] White Zeke Calculation Initial Zeke Date Initial Exam Date Initial Exam Provider Initial Ultrasound Date Last Menstrual Period Date Ultra Sound Weeks Gestation 2017 11/12/2016 [email or web address] 01/07/2017 08/27/2016 18 Eighteen To Twenty Week Zeke Update Ultra Sound Date Fundal Height At Umbil Quickening Date Ultra Sound Latest Weeks Gestation Final Zeke Confirmed By Final Zeke Confirmed Date Final Zeke Date Ultra Sound Latest Days Gestation 03/24/20 17 29 [email or web address] 04/13/2017 06/06/19 18 4 Pre- Flowsheet Flowsheet Date 11/03/2016 Clement Score Blood Edema Fundus Height Fundus Units Glucose Ketones Leukocytes Nitrite Labor Signs Protein Cervic Dilation Cervic Effacement Cervic Station Type Weight in lbs Pre/Post Dialysis Refused 337.309967544478 BP Diastolic BP Location Tested BP Systolic BP Type 86 132 sitting Fetus Heart Rate Present Fetus Movement Comments Flowsheet Date 11/12/2016 Clement Score Blood Edema Fundus Height Fundus Units Glucose Ketones Leukocytes Nitrite Labor Signs Protein Cervic Dilation Cervic Effacement Cervic Station 0cm 0% -4 Type Weight in lbs Pre/Post Dialysis Refused 339.983535804364 BP Diastolic BP Location Tested BP Systolic BP Type 80 138 sitting Fetus Heart Rate Present Fetus Movement Comments Unable to assess FHTs due to body habitusdiscussed previous c/s - plan repeat Flowsheet Date 12/04/2016 Clement Score Blood Edema Fundus Height Fundus Units Glucose Ketones Leukocytes Nitrite Labor Signs Protein Cervic Dilation Cervic Effacement Cervic Station Type Weight in lbs Pre/Post Dialysis Refused 334.296853632492 BP Diastolic BP Location Tested BP Systolic BP Type 76 112 sitting Fetus Heart Rate Present A 164 Present Fetus Movement Comments Doing well, nausea subsiding , US after next visit Flowsheet Date 01/01/2017 Clement Score Blood Edema Fundus Height Fundus Units Glucose Ketones Leukocytes Nitrite Labor Signs Protein Cervic Dilation Cervic Effacement Cervic Station 18 wks Type Weight in lbs Pre/Post Dialysis Refused 334.686238704309 BP Diastolic BP Location Tested BP Systolic BP Type 96 158 sitting Fetus Heart Rate Present A 156 Present Fetus Movement A Yes Comments doing ok, gave some phenerga n to try instead of Zofrageneralized itchiness as wellUS before next visit Flowsheet Date 01/29/2017 Clement Score Blood Edema Fundus Height Fundus Units Glucose Ketones Leukocytes Nitrite Labor Signs Protein Cervic Dilation Cervic Effacement Cervic Station 20 wks Type Weight in lbs Pre/Post Dialysis Refused 335.850024552290 BP Diastolic BP Location Tested BP Systolic BP Type 76 144 sitting Fetus Heart Rate Present A 145 Present Fetus Movement A Yes Comments still best to hear FHTs unde r trentcharissamartha #2 on US, will need some f/u picssugartest next visit Flowsheet Date 03/06/2017 Clement Score Blood Edema Fundus Height Fundus Units Glucose Ketones Leukocytes Nitrite Labor Signs Protein Cervic Dilation Cervic Effacement Cervic Station 26 cm Type Weight in lbs Pre/Post Dialysis Refused 334.299357360977 BP Diastolic BP Location Tested BP Systolic BP Type Fetus Heart Rate Present A 172 Fetus Movement A Yes Comments FHTs above jose eliasus todaydoing sugar test, some unusual up/down readings at home - likely DM cetnter in her future. Got rhogam today Flowsheet Date 03/27/2017 Clement Score Blood Edema Fundus Height Fundus Units Glucose Ketones Leukocytes Nitrite Labor Signs Protein Cervic Dilation Cervic Effacement Cervic Station none 30 cm Type Weight in lbs Pre/Post Dialysis Refused 337.369715141192 BP Diastolic BP Location Tested BP Systolic BP Type 78 138 sitting Fetus Heart Rate Present A 143 Present Fetus Movement A Yes Comments doing ok, plan repeat c/s at 39 weeks - pick date next time Flowsheet Date 04/16/2017 Clement Score Blood Edema Fundus Height Fundus Units Glucose Ketones Leukocytes Nitrite Labor Signs Protein Cervic Dilation Cervic Effacement Cervic Station 35 cm Type Weight in lbs Pre/Post Dialysis Refused BP Diastolic BP Location Tested BP Systolic BP Type Fetus Heart Rate Present A 146 Present Fetus Movement A Yes Comments doing well, plan repeat at 3 9 weeksf/u 2 weeks Flowsheet Date 04/30/2017 Clement Score Blood Edema Fundus Height Fundus Units Glucose Ketones Leukocytes Nitrite Labor Signs Protein Cervic Dilation Cervic Effacement Cervic Station trace 37 cm none neg Type Weight in lbs Pre/Post Dialysis Refused 336.958097860148 BP Diastolic BP Location Tested BP Systolic BP Type 106 128 sitting Fetus Heart Rate Present A 144 Present Fetus Movement A Yes Comments BP a little high today, no p rotein, likely visit to L&D for some BP checks Flowsheet Date 05/07/2017 Clement Score Blood Edema Fundus Height Fundus Units Glucose Ketones Leukocytes Nitrite Labor Signs Protein Cervic Dilation Cervic Effacement Cervic Station trace 39 cm none neg Type Weight in lbs Pre/Post Dialysis Refused 338.338130615408 BP Diastolic BP Location Tested BP Systolic BP Type 96 158 sitting Fetus Heart Rate Present A 134 Present Fetus Movement A Yes Comments doing ok, BP elevated again ( was normal on L&D last week after apt. here)no protein in urine, no HAwill send to L&D for NST and BP checks Flowsheet Date 05/15/2017 Clement Score Blood Edema Fundus Height Fundus Units Glucose Ketones Leukocytes Nitrite Labor Signs Protein Cervic Dilation Cervic Effacement Cervic Station none 40 cm Type Weight in lbs Pre/Post Dialysis Refused 344.953618666937 BP Diastolic BP Location Tested BP Systolic BP Type 102 148 sitting Fetus Heart Rate Present A 141 Present Fetus Movement A Yes Comments To L&D for BP check and NST for third week in a row. We may just not have a big enough BP cuff to get good readings. BPs have always been good on L&D. Might end up moving her to 38 weeks with a PIH diagnosis. Flowsheet Date 05/26/2017 Clement Score Blood Edema Fundus Height Fundus Units Glucose Ketones Leukocytes Nitrite Labor Signs Protein Cervic Dilation Cervic Effacement Cervic Station Type Weight in lbs Pre/Post Dialysis Refused 329.282517849686 BP Diastolic BP Location Tested BP Systolic BP Type 103 148 sitting Fetus Heart Rate Present Fetus Movement Comments Flowsheet Date 06/30/2017 Clement Score Blood Edema Fundus Height Fundus Units Glucose Ketones Leukocytes Nitrite Labor Signs Protein Cervic Dilation Cervic Effacement Cervic Station Type Weight in lbs Pre/Post Dialysis Refused 331.522189141455 BP Diastolic BP Location Tested BP Systolic BP Type 86 118 sitting Fetus Heart Rate Present Fetus Movement Comments Menstrual History Last Menstrual Date Menses Monthly On Bcp Conception Prior Menses Frequency Hcg Plus Date Menarche Onset Age 0508/27/2016 Delivery Information Delivery Date Delivery Type Labor Anesthesia Weeks Gestation Incision Type Labor Labor Length Hrs Delivered By Post Complications Tubal Sterilization Discharge Date Comments 8 None Regional-Sp inal 37.3 Low Transvers e jovanny petty 05/20/2017 Discharge Information Feeding Method Contraceptive Method Maternal HG B and HCT Levels Breast
--- OUTSIDE RECORDS SUMMARY | 2024-05-08 12:45 | XMS_ITS | Data Portability ---
Author Organization [facility] Address [address] [place] [address] Assessment No assessment recorded. Plan of Treatment Reminders Order Date Submit Date Provider Last Modified By Organization Details Last Modified Time Details Appointments None recorded. Lab urinalysis, dipstick 2019 020 [facility] [address], [address], [place], [address], 0 10:53:50 Referral None recorded. Procedures None recorded. Surgeries None recorded. Imaging US, obstetric, transvagina l 2019 020 [facility], [address], [place], [address], 0 17:34:46 US, obstetric, transvagina l 2019 020 [facility], [address], [place], [address], 0 15:12:52 Medication Orders None recorded. Patient TargetsNo targets recorded. Patient InstructionsNo instructions recorded. Reason for Referral None Reported. Results Created Date Observation Date Name Description Value Unit Range Abnormal Flag Note LastModifiedBy Organization Detail LastModifiedTime 09/14/19 20 09/15/2019 cultu re, urine specimen source Urine - Void Not Available [facility] [address], [place], [address], 09/15/2019 22:57:39 09/14/19 20 09/15/2019 cultu re, urine culture, urine See Below No growt h Not Available [facility] ([facility]) [address], [place], [address], 09/15/2019 22:57:39 09/14/19 20 09/14/2019 urina lysis , dipst ick Leukocytes neg Not Available [facility] [address], [place], [address], 09/14/2019 10:31:07 09/14/19 20 09/14/2019 urina lysis , dipst ick Nitrite neg Not Available [facility] [address], [place], [address], 09/14/2019 10:31:07 09/14/19 20 09/14/2019 urina lysis , dipst ick Protein neg Not Available [facility] [address], [place], [address], 09/14/2019 10:31:07 05/26/19 21 05/26/2020 andrae CARBAJAL trans vagin al md interpretati on Not Available [facility] [address], [place], [address], 11/25/2019 14:54:16 05/27/19 21 05/27/2020 andrae CARBAJAL trans vagin al md interpretati on Not Available [facility] [address], [place], [address], 12/02/2019 09:49:00 11/25/19 andrae CARBAJAL trans vagin al No observ ation record ed. [email or web address] [address], [place], [address], 11/28/2019 10:38:23 12/02/19 20 US, obste tric, trans vagin al No observ ation record ed. [email or web address] [address], [place], [id number], 12/05/2019 11:21:25 01/13/20 20 01/12/2020 US, obste tric, follo w-up No observ ation record ed. On license of [facility] [address], [place], [address], 01/18/2020 18:22:29 Result Notes None recorded. Problems Name Problem SNOMED Code Status Onset Date Resolution Date Notes Provider Name and Address Organization Details Recorded Time Finding of contents of cervix 552559852 Active 2019 Weeks of gestation of not specified; Recorded Elsewhere: No Locatio n: [facility] rce: EHR Chroni c: N Practice ID: [id number] Billa ble Time: 01:30:00 PM Not Available [facility] 0 17:42:51 Miscarria ge 48915909 Active 2018 Miscarriag e;Recorded Elsewhere: No Locatio n: [facility] rce: EHR Chroni c: N Practice ID: [id number] Billa ble Time: 09:15:00 AM Not Available [facility] 0 17:42:51 Threatene d miscarria ge 34101434 Active 2019 Threatened ;R ecorded Elsewhere: No Locatio n: [facility] rce: EHR Chroni c: N Practice ID: [id number] Billa ble Time: 01:30:00 PM Not Available [facility] 0 17:42:51 test negative 960584675 Active 2018 Encounter for test, result negative;R ecorded Elsewhere: No Locatio n: [facility] rce: EHR Chroni c: N Practice ID: [id number] Billa ble Time: 03:45:00 PM Not Available [facility] 0 17:42:51 Finding of regularit y of menstrual cycle Active 2018 Irregular bleeding;R ecorded Elsewhere: No Locatio n: [facility] rce: EHR Chroni c: N Practice ID: [id number] Billa ble Time: 03:45:00 PM Not Available [facility] 0 17:42:51 Missed miscarria [id number] Active 2019 Missed ;R ecorded Elsewhere: No Locatio n: [facility] rce: EHR Chroni c: N Practice ID: [id number] Billa ble Time: 09:45:00 AM Not Available [facility] 0 17:42:51 Problem Notes None recorded. Procedures Surgical History Date Name Laterality Status Provider Name and Address Organization Details Recorded Time 05/07/19 18 delivery completed [facility] 09/21/2019 16:30:25 04/06/19 10 delivery completed [facility] 09/21/2019 16:30:14 Tonsillectomy completed [facility] 09/05/2019 15:46:36 Imaging Results Imaging Date Name Status LastModified by Organization Details LastModified Time 11/25/2019 US, obstetric, transvaginal completed [email or web address] [address], [place], [address], 11/28/2019 10:38:23 12/02/2019 US, obstetric, transvaginal completed [email or web address] [address], [place], [address], 12/05/2019 11:21:25 01/12/2020 US, obstetric, follow-up completed On license of [facility] [address], [place], [address], 01/18/2020 18:22:29 Procedure Notes None recorded. Medical Equipment None Reported. Allergies No known drug allergies Medications Name Sig Start Date Stop Date Status Note LastModified by Organization Details LastModified Time Cytotec 200 mcg tablet Insert all 4 tablets by vaginal route. 07/10 completed Prescrib ed Elsewher e: No Locat ion: Ronaja[facility]eline carranza [facility] M odify By: dolores Dooley siomara DateTime : 06/30/19 09:45:00 AM Not Available Not Available Not Available progester one micronize d 200 mg capsule active Not Available Not Available Not Available Vitals None Recorded Social History None recorded. Functional Status None recorded. Mental Status None recorded. Family History Relationship Description Onset Age of this Age Resolved Age Notes LastModified by Organization Details LastModified Time Mother Malignant tumor of cervix [email or web address] Not available 09/04 15:42:32 Paternal Aunt Malignant tumor of breast [email or web address] Not available 09/04 15:42:48 Notes:Mother: Cancer, cervic al Paternal aunt: Cancer, breast Medical History Condition Response Anemia Y Gynecological HistoryNo gynecological history recorded. Obstetrics History GPAL:G 0 P 0 0 0 0 Past Encounters Encounter ID Performer Location Encounter Start Date Encounter Closed Date Diagnosis/Indication Diagnosis SNOMED-CT Code Diagnosis ICD10 Code Diagnosis Note [id number] [facility] [address] [address] 09/14/2019 09:39:30 09/17/2019 19:24:03 Urinary symptoms [id number] R39.9 [id number] [facility] [address],[place] [address] 11/25/2019 14:12:27 11/25/2019 15:54:39 Uncertain viability of [id number] O36.80X9 Z3A.01 [id number] [facility] [address],[place] [address] 12/02/2019 09:24:44 12/02/2019 09:53:56 Uncertain viability of 339804118 O36.80X9 Z3A.01 Health Concerns Section Related Observation LastModified by Organization Detai ls LastModified Time None Recorded Concern Status LastModified by Organization Details LastModified Time None Recorded Advance Directives Directive None Recorded Payers Encounter Date Sequence Insurance Name Policy Number Policy Joy Covered Member ID Joy Member ID Guarantor Name 09/14/2019 1 [place] [id number] Roxy Vatole [id number] Roxy Vatole 11/25/2019 1 [place] [id number] Roxy Vatole [id number] Roxy Vatole 12/02/2019 1 [place] [id number] Roxy Vatole [id number] Roxy Vatole OBGyn Episode Ob Episode Information Episode Created Date Number of Fetuses Patient Bloodtype Patient rh Status Prepregnancy Weight lbs Domestic Partner Domestic Partner Phone Father Name Produce Weigher Status 09/21/19 20 1 CLOSED Fetus Data First Name Last Name Admitted to NICU Weight (g) Sex Living Outcome Pediatric Complications Fetus ID Race Codes Race Delivery Type 2344 Primary Zeke Calculation Initial Zeke Date Initial Exam [...] Complications Tubal Sterilization Discharge Date Comments 0 HOME Discharge Information Feeding Method Contraceptive Method Maternal HG B and HCT Levels Ob Episode Information Episode Created Date Number of Fetuses Patient Bloodtype Patient rh Status Prepregnancy Weight lbs Domestic Partner Domestic Partner Phone Father Name Produce Weigher Status 09/21/19 20 1 CLOSED Fetus Data First Name Last Name Admitted to NICU Weight (g) Sex Living Outcome Pediatric Complications Fetus ID Race Codes Race Delivery Type 2345 Repeat Zeke Calculation Initial Zeke Date Initial Exam [...] Complications Tubal Sterilization Discharge Date Comments 8 SHARRON Discharge Information Feeding Method Contraceptive Method Maternal HG B and HCT Levels Ob Episode Information Episode Created Date Number of Fetuses Patient Bloodtype Patient rh Status Prepregnancy Weight lbs Domestic Partner Domestic Partner Phone Father Name Produce Weigher Status 09/21/19 20 1 CLOSED Fetus Data First Name Last Name Admitted to NICU Weight (g) Sex Living Outcome Pediatric Complications Fetus ID Race Codes Race Delivery Type , Spontane ous 2346 Zeke Calculation Initial Zeke Date Initial Exam [...] Post Complications Tubal Sterilization Discharge Date Comments 9 Discharge Information Feeding Method Contraceptive Method Maternal HG B and HCT Levels
[2024-05-08 12:55] VITALS: BP 175/111; PULSE 100; RESP 20; TEMP 36.9; O2SAT 100
--- NOTE | 2024-05-08 14:26 | PC.NURSE ---
pt walked out due to long wait times
--- OUTSIDE RECORDS SUMMARY | 2024-05-08 14:44 | XMS_ITS | Clinical Summary ---
Author Organization [facility] Address [address] [place] [address] Care Team Providers Care Plant Operator Name Role Phone No, Physician Primary Care Provider [phone] Allergies No known active allergies Medications famotidine (PEPCID) 20 mg tablet Take 1 tablet (20 mg total) by mouth 2 (two) times a day. 30 tablet 04/28/2017 Active calcium carbonate (TUMS) 500 mg calcium (200 mg of elemental calcium) chewable tablet Take 1 tablet by mouth daily. Active HYDROcodone-luis taminophen (NORCO) 5-325 mg per tabletIndicatio ns:Pain Take 1 tablet by mouth every 4 (four) hours as needed for pain. 24 tablet 05/20/2017 Active ibuprofen (ADVIL,MOTRIN) 600 mg tabletIndicatio ns:History of Take 1 tablet (600 mg total) by mouth every 6 (six) hours as needed for headaches. 30 tablet 1 05/20/2017 Active benzonatate (TESSALON) 100 mg capsuleIndicati ons:Cough Take 1 capsule (100 mg total) by mouth 3 (three) times a day as needed for cough 15 capsule 07/20/2018 Active HYDROcodone-luis taminophen (NORCO) 5-325 mg per tabletIndicatio ns:Pain Take 1-2 tablets by mouth every 4 (four) hours as needed for pain Do not exceed 8 tablets/day. 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 Overview (07/10/2016): Hypersomnia with sleep apnea Obstructive sleep apnea syndrome in adult 2010 Overview (07/11/2016): Obstructive sleep apnea syndrome in adult Immunizations Name Administration Dates Next Due MMR 05/20/2017 Surgical History Surgery Date Site/Laterality Comments SECTION section LUMBAR PUNCTURE WO INJECTION , DIAGNOSTIC 02/04/2013 N/A TONSILLECTOMY 04/06/2007 - 04/05/2008 TONSILLECTOMY 04/06/2006 - 04/05/2007 Medical History Medical History Date Comments Hx Other Medical tonsils removed Hx Other Medical Headache, migra ine Family History Medical History Relation Name Comments Migraines Mother Migraine; Relation Name Status Comments Mother Social History Tobacco Use Types Packs/Day Years Used Date Smoking Tobacco: Never Smokeless Tobacco: Never Alcohol Use Standard Drinks/Week Comments No 0 (1 standard drink = 0.6 oz pur e alcohol) Comments Unknown Sex and Gender Information Value Date Recorded Sex Assigned at Not on file 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 Gender Identity Not on file Sexual Orientation Not on file Obstetrics History Para Term AB IAB SAB Ectopic Multiple Livin g Live Births 3 2 2 0 0 0 2 2 Date Outcome GA Total Labor Labor/2nd/3rd Weight Sex Type Anes PTL Hiwot A1 A5 Name Clin Term 2017 Term 37w 3d 0h 01m 0h 01m 3.693 kg (8 lb 2.3 oz) M CS-LT ranv Spinal N Livin g 9 9 MACIEL MITTAL Geoffr ey L, MD Complications:None Delivery Location:This Facil ity ([facility]) Last Filed Vital Signs Vital Sign Reading Time Taken Comments Blood Pressure 149/86 09/12/2018 6:12 PM CDT Pulse 111 09/12/2018 5:39 PM CDT Temperature 36.8 ??C (98.2 ??F) 09/12/2018 5:39 PM CD T Respiratory Rate 18 09/12/2018 5:39 PM CDT Oxygen Saturation 98% 09/12/2018 5:39 PM CDT Inhaled Oxygen Concentration - - Weight 152 kg (335 lb 1.6 oz) 09/12/2018 5:39 PM CDT Height 165.1 cm (5' 5 ) 09/12/2018 5:39 PM CDT Body Mass Index 55.76 09/12/2018 5:39 PM CDT Plan of Treatment Not on file Insurance Advance Directives For more information, please contact: [phone] * Full Code (Latest Code Status on File) Date Activated Date Inactivated Comments 05/18/2017 1:08 PM 05/20/2017 4:08 PM * Full Code Date Activated Date Inactivated Comments 05/18/2017 7:09 AM 05/18/2017 1:08 PM Full CPR in case of cardiopulmonary arrest Care Teams Plant Operator Relationship Specialty Start Date End Date No, Physician PCP - General 01/01/17
--- OUTSIDE RECORDS SUMMARY | 2024-05-08 14:44 | XMS_ITS | Referral Summary ---
Author Organization [facility] Address [address] [place] [address] Care Team Providers Care Top Bottom Attaching Machine Operator Name Role Phone No, Physician Primary Care Provider [phone] Allergies No known active allergies Medications famotidine [...] Name Administration Dates Next Due MMR 05/20/2017 Social History Tobacco Use Types Packs/Day Years Used Date Smoking Tobacco: Never Smokeless Tobacco: Never Alcohol Use Standard Drinks/Week Comments No 0 (1 standard drink = 0.6 oz pur e alcohol) Comments Unknown Sex and Gender Information Value Date Recorded Sex Assigned at Not on file 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 Gender Identity Not on file Sexual Orientation Not on file Last Filed Vital Signs Vital Sign Reading [...] Plan of Treatment Not on file Insurance [facility] Advance Directives For more information, please contact: [phone] * Full Code (Latest Code Status on File) Date Activated Date Inactivated Comments 05/18/2017 1:08 PM 05/20/2017 4:08 PM * Full Code Date Activated Date Inactivated Comments 05/18/2017 7:09 AM 05/18/2017 1:08 PM Full CPR in case of cardiopulmonary arrest Care Teams Top Bottom Attaching Machine Operator Relationship Specialty Start Date End Date No, Physician PCP - General 01/01/17
== END 2024-05-08 14:46 | disposition left against medical advice (07) ==
DX: R05.9 Cough, unspecified (principal)
CPT/HCPCS: 99199

== ENCOUNTER 2025-02-17 10:39 | Emergency (ER) | payer BC, SELFPAY ==
--- NOTE | ~2025-02-17 | XR_ITS ---
EXAMINATION: XR knee LT min 4V DATE: 02/17/2025 12:08 INDICATION: Posterior left knee pain TECHNIQUE: Anteroposterior, 2 oblique and crosstable lateral views of the left knee were obtained COMPARISON: None. FINDINGS: Alignment is normal. No fracture. Joint spaces are normal. Tiny marginal ossified along the cephalad margin of the patella. No joint effusion/layering lipohemarthrosis. Soft tissues are unremarkable. IMPRESSION: 1. No left knee joint effusion or acute osseous abnormality. Reviewed, dictated and finalized at location A. ION MANAGER
--- NOTE | ~2025-02-17 | US_ITS ---
EXAMINATION: US venous doppler LE , 02/17/2025 12:58 DIRECTOR OF STATE HISTORY: pain/swelling L postioer knee/calf Comparison: None Technique: Velez-scale and color Doppler images were attempted of the lower saphenofemoral junction, common femoral vein,superficial femoral vein, proximal deep femoral vein, proximal deep femoral vein, popliteal vein and posterior tibial veins. Findings: Deep Venous System:Normal flow, augmentation and compressibility. No echogenic thrombus identified. The contralateral saphenofemoral junction appears unremarkable. Superficial Venous SystemNo superficial thrombophlebitis. Soft tissues: Soft tissues are unremarkable. Impression: Negative for DVT. Reviewed, dictated and finalized at location P. CTOR OF STATE Impression: Negative for DVT.
[2025-02-17 10:40] VITALS: BP 152/100; RESP 18; O2SAT 100
[2025-02-17 11:37] VITALS: BP 142/78; PULSE 72; RESP 18; TEMP 36.4; O2SAT 96
--- NOTE | 2025-02-17 13:04 | ED.EXTPRO ---
HPI - Extremity Problem General Chief complaint: Extremity Problem,Nontraumatic Stated complaint: L knee pain Time Seen by Provider: 02/17/25 11:15 Source: patient Mode of arrival: ambulatory Limitations: no limitations History of Present Illness HPI Narrative: Patient is a 34-year-old female who presents the ED with report of left posterior knee pain. Patient reports having pain intermittently for the past 1 week. Reports intermittent sharp shooting pains in her left posterior knee, radiating down her left calf. Reports some swelling in the area. Denies any fall or injury. Denies numbness. Has been taking Tylenol for the pain with some improvement. Related Data Allergies Allergy/AdvReac Type Severity Reaction Status Date / Time No Known Allergies Allergy Verified 02/17/25 10:42 Review of Systems Review of Systems: All systems reviewed & are unremarkable except as noted in HPI. All systems reviewed & are unremarkable except as noted in HPI and below PMFSH Past Medical History Medical History Asthma Gestational hypertension Miscarriage X2 09/2018 Anemia affecting Acid reflux Migraines Tonsillectomy planned delivery delivered X3 Surgical History Surgical History H/O dilation and curettage X2 Family History Family History Other Breast cancer Mother Cervical cancer Social History Social History Smoking status: Never smoker Second hand tobacco smoke exposure: Yes Alcohol intake: current Drinks per week: 1 Alcohol use details: Rarely Substance use: never Substance use type: marijuana Other substance usage details: 3 times weekly Gender identity (if verbalized by the patient): Female Spiritual care concerns: No Exam Narrative: GENERAL: Well appearing, morbidly obese with BMI 62.3, non-toxic, in no acute distress. HEAD: Normocephalic, atraumatic. RESPIRATORY: Airway patent, respirations nonlabored. CARDIOVASCULAR: Regular rate and rhythm. Pedal pulses intact and easily palpable MUSCULOSKELETAL: Moves all extremities. No gross deformities. Mild tenderness to palpation in left popliteal region without obvious fullness. No appreciable swelling in LLE. Sensation intact. No tenderness to palpation over anterior left knee. SKIN: Warm, dry, normal color. NEURO: A&O X3. Speech clear. Cranial nerves II-XII grossly intact. Steady gait. No ataxic movements. PSYCHIATRIC: Appropriate mood and affect. Normal interaction. Course Vital Signs Vital signs: Vital Signs Respiratory Rate 18 02/17/25 10:40 Blood Pressure 152/100 H 02/17/25 10:40 Pulse Oximetry 100 02/17/25 10:40 Oxygen Delivery Room Air 02/17/25 10:40 Temperature 97.6 F 02/17/25 11:37 Pulse Rate 72 02/17/25 11:37 Respiratory Rate 18 02/17/25 11:37 Blood Pressure 142/78 H 02/17/25 11:37 Pulse Oximetry 96 02/17/25 11:37 Oxygen Delivery Room Air 02/17/25 10:40 MDM - Extremity (Nontraumatic) MDM Narrative Medical decision making narrative: Patient?s injury is consistent with musculoskeletal etiology. No signs of neurologic or vascular compromise on physical examination. Compartments are soft without signs of compartment syndrome. XR of left knee negative, no joint effusion. Venous Doppler ultrasound negative for DVT or superficial thrombophlebitis. No evidence of a Enriquez's cyst. Discussed imaging findings with patient. Discussed high likelihood of knee sprain, versus ligament/meniscus injury. Will place an Bryan bandage. Will be referred to Ortho for further eval. Discussed rice therapy. Patient is felt to be stable for discharge home and further outpatient management and treatment. Patient in agreement with plan. Discharged in stable condition. Medical Records Attestation: I reviewed the patient's medical records. Imaging Data Attestation: I personally reviewed and interpreted this imaging study as follows: Radiologist's impression: ITS Impressions Knee X-Ray 02/17/25 12:09 IMPRESSION: 1. No left knee joint effusion or acute osseous abnormality. Venous Doppler Study 02/17/25 14:08 Impression: Negative for DVT. Discharge Plan Discharge Clinical Impression: Posterior left knee pain Strain of left knee Qualifiers: Encounter type: initial encounter Qualified Code(s): S86.912A - Strain of unspecified muscle(s) and tendon(s) at lower leg level, left leg, initial encounter Patient Disposition: Home Condition: Stable Instructions: Antibiotic Form, Knee Sprain (ED) Additional Instructions: Your imaging here was reassuring. There is no evidence of fracture or blood clots. You likely strained your knee. Recommend Bryan bandage for compression/support, Tylenol and ibuprofen as needed for pain, frequent icing to knee, elevation of leg whenever able. You may follow-up with primary care doctor and/or orthopedics for further evaluation. Return to the ED if you experience worsening or severe pain or swelling, fall or injury, numbness of leg, or any other symptoms of concern. Patient Language: Kyrgyz Prescriptions: No Action albuterol sulfate 90 mcg/actuation aerosol powdr breath activated 2 inh inhalation Q4-6H PRN (Reason: cough) Qty: 1 0RF nystatin 100,000 unit/gram powder 1 applic topical BID Qty: 15 0RF nystatin 100,000 unit/gram powder 1 applic topical BID Qty: 15 0RF ibuprofen 400 mg tablet 400 mg PO TID PRN (Reason: fever or pain) 10 Days Qty: 30 0RF ondansetron 4 mg tablet,disintegrating 4 mg PO Q8H PRN (Reason: nausea and vomiting) 7 Days Qty: 20 0RF acetaminophen 500 mg capsule 500 mg PO Q6H PRN (Reason: fever or pain) Qty: 30 0RF Follow-up/Referrals: PHYSICIAN,LAB ANIMAL TECHNOLOGIST [Primary Care Provider, Internal Medicine] Giovany Moreno MD [Physician, Orthopedics] Referral Note: ORTHOPEDICS Stand Alone Forms: Work/School Release IP Time of Disposition: 14:28
--- OUTSIDE RECORDS SUMMARY | 2025-02-17 16:23 | XMS_ITS | Data Portability ---
Author Organization [facility] [place] [address] [place] [address] Assessment No assessment recorded. Plan of Treatment Reminders Order Date Submit Date Provider Last Modified By Organization Details Last Modified Time Details Appointments None recorded. Lab urinalysis, dipstick [address], [address], [place], [address], 0 10:53:50 Referral None recorded. Procedures None recorded. Surgeries None recorded. Imaging US, obstetric, transvagina l 2019 020 [facility], [address], [place], [address], 0 15:12:52 US, obstetric, transvagina l 2019 020 [facility], [address], [place], [address], 0 17:34:46 Medication Orders None recorded. Patient TargetsNo targets recorded. Patient InstructionsNo instructions recorded. Reason for Referral None Reported. Results Created Date Observation Date Name Description Value Unit Range Abnormal Flag Note LastModifiedBy Organization Detail LastModifiedTime 09/14/19 20 09/15/2019 cultu re, urine specimen source Urine - Void Not Available [facility] [address], [place], [address], 09/15/2019 22:57:39 09/14/19 20 09/15/2019 cultu re, urine culture, urine See Below No growt h Not Available [facility] ([facility]) [address], [place], [address], 09/15/2019 22:57:39 09/14/19 20 09/14/2019 urina lysis , dipst ick Leukocytes neg Not Available [facility] [address], [place], [address], 09/14/2019 10:31:07 09/14/19 20 09/14/2019 urina lysis , dipst ick Nitrite neg Not Available [facility] [address], [place], [address], 09/14/2019 10:31:07 09/14/19 20 09/14/2019 urina lysis , dipst ick Protein neg Not Available [facility] [address], [place], [address], 09/14/2019 10:31:07 05/26/19 21 05/26/2020 andrae CARBAJAL trans vagin al md interpretati on Not Available [facility] [address], [place], [address], 11/25/2019 14:54:16 05/27/19 21 05/27/2020 andrae CARBAJAL trans vagin al md interpretati on Not Available [facility] [address], [place], [address], 12/02/2019 09:49:00 11/25/19 andrae CARBAJAL trans vagin al No observ ation record ed. [email or web address] [address]a [address], [place], [address], 11/28/2019 10:38:23 12/02/19 US, obste tric, trans vagin al No observ ation record ed. [email or web address] Christa [address], [place], [address], 12/05/2019 11:21:25 01/13/2001/12/2020 US, obste tric, follo w-up No observ ation record ed. [facility] [address], [place], [address], 01/18/2020 18:22:29 Result Notes None recorded. Problems Name Problem SNOMED Code Status Onset Date Resolution Date Notes Provider Name and Address Organization Details Recorded Time Miscarria ge [id number] Active 2018 Miscarriag e;Recorded Elsewhere: No Locatio n: [facility]: EHR Chroni c: N Practice ID: 0001 Billa ble Time: 09:15:00 AM Not Available [facility] 0 17:42:51 test negative [id number] Active 2018 Encounter for test, result negative;R ecorded Elsewhere: No Locatio n: [facility]ce: EHR Chroni c: N Practice ID: 0001 Billa ble Time: 03:45:00 PM Not Available [facility] 0 17:42:51 Finding of regularit y of menstrual cycle Active 2018 Irregular bleeding;R ecorded Elsewhere: No Locatio n: [facility]ce: EHR Chroni c: N Practice ID: 0001 Billa ble Time: 03:45:00 PM Not Available [facility] 0 17:42:51 Finding of contents of cervix 027934323 Active 2019 Weeks of gestation of not specified; Recorded Elsewhere: No Locatio n: [facility]ce: EHR Chroni c: N Practice ID: 0001 Billa ble Time: 01:30:00 PM Not Available [facility] 0 17:42:51 Threatene d miscarria ge [id number] Active 2019 Threatened ;R ecorded Elsewhere: No Locatio n: [facility]ce: EHR Chroni c: N Practice ID: 0001 Billa ble Time: 01:30:00 PM Not Available [facility] 0 17:42:51 Missed miscarria ge [id number] Active 2019 Missed ;R ecorded Elsewhere: No Locatio n: [facility]ce: EHR Chroni c: N Practice ID: 0001 Billa ble Time: 09:45:00 AM Not Available [facility] 0 17:42:51 Problem Notes None recorded. Procedures Surgical History Date Name Laterality Status Provider Name and Address Organization Details Recorded Time 05/07/19 18 delivery completed [facility] 09/21/2019 16:30:25 04/06/19 10 delivery completed [facility] 09/21/2019 16:30:14 Tonsillectomy completed [facility] 09/05/2019 15:46:36 Imaging Results None recorded. Procedure Notes None recorded. Medical Equipment None Reported. Allergies No known drug allergies Medications Name Sig Start Date Stop Date Status Note LastModified by Organization Details LastModified Time Cytotec 200 mcg tablet Insert all 4 tablets by vaginal route. 07/10 completed Prescrib ed Elsewher e: No Locat ion: [facility] M odify By: dolores stringer DateTime : 06/30/19 09:45:00 AM Not Available Not Available Not Available progester one micronize d 200 mg capsule active Not Available Not Available Not Available Vitals None Recorded Social History None recorded. Functional Status None recorded. Mental Status None recorded. Family History Relationship Description Onset Age of this Age Resolved Age Notes LastModified by Organization Details LastModified Time Mother Malignant neoplasm of cervix uteri [email or web address] Not available 15:42:32 Paternal Aunt Malignant neoplasm of breast [email or web address] Not available 09/04 15:42:48 Notes:Mother: Cancer, cervic al Paternal aunt: Cancer, breast Medical History Condition Response Anemia Y Gynecological HistoryNo gynecological history recorded. Obstetrics History GPAL:G 0 P 0 0 0 0 Past Encounters Encounter ID Performer Location Encounter Start Date Encounter Closed Date Diagnosis/Indication Diagnosis SNOMED-CT Code Diagnosis ICD10 Code Diagnosis IMO Codes Diagnosis Note [id number] Damaris LairdELE [place] [address],[facility] [address] 09/14/2019 09:39:30 09/17/2019 19:24:03 Urinary symptoms 582877022 R39.9 [id number] Jhonny Walker MD [facility] [address],[facility] [address] 11/25/2019 14:12:27 11/25/2019 15:54:39 Uncertain viability of 190386410 O36.80X9 Z3A.01 [id number] Jhonny Walker MD [place] [address],[place] [address] 12/02/2019 09:24:44 12/02/2019 09:53:56 Uncertain viability of 147044564 O36.80X9 Z3A.01 Health Concerns Section Related Observation LastModified by Organization Detai ls LastModified Time None Recorded Concern Status LastModified by Organization Details LastModified Time None Recorded Advance Directives Directive None Recorded Payers Insurance Date Sequence Insurance Name Policy Number Policy Joy Covered Member ID Joy Member ID Guarantor Name 11/30/2019 1 [id number] Roxy Shanks [id number] Roxy Shanks OBGyn Episode Ob Episode Information Episode Created Date Number of Fetuses Patient Bloodtype Patient rh Status Prepregnancy Weight lbs Domestic Partner Domestic Partner Phone Father Name Guest History Clerk Status 09/21/19 20 1 CLOSED Fetus Data [...] Domestic Partner Domestic Partner Phone Father Name Guest History Clerk Status 09/21/19 1 CLOSED Fetus Data First Name Last [...] Domestic Partner Domestic Partner Phone Father Name Guest History Clerk Status 09/21/19 1 CLOSED Fetus Data First Name Last [...]
== END 2025-02-17 14:50 | disposition home or self-care (01) ==
PROVIDERS: Emergency Provider Physician Assistant
DX: S86.912A Strain of unspecified muscle(s) and tendon(s) at lower leg level, left leg, initial encounter (principal); J45.909 Unspecified asthma, uncomplicated
CPT/HCPCS: 73564; 93971; 99284